=== PATIENT | female | born 1965 | race Caucasian/White ===

== ENCOUNTER 2021-10-20 13:02 | Inpatient (IN) | payer MEDICARE, MEDICAID, SELFPAY ==
[2021-10-20] VITALS (17 sets, daily range): BP systolic 98–138; BP diastolic 45–102; PULSE 87–112; RESP 18–28; TEMP 36.3–38.6; O2SAT 90–95; BMI 48.6
--- NOTE | 2021-10-20 13:32 | W.ED.GENAD ---
Discharge Plan Disposition Patient Disposition: [facility] INPATIENT Condition: Stable Discharge Details Clinical Impression: Open wound of left lower leg ED Provider: Dilip Reese [place] Meds and New Rx's Prescriptions: No Action atorvastatin [Lipitor] 40 mg Tablet 40 mg PO QHS acetaminophen 325 mg Tablet 650 mg PO Q8H PRN PRN torsemide 20 mg Tablet 20 mg PO DAILY prednisone 20 mg Tablet 20 mg PO DAILY alendronate 70 mg Tablet 70 mg PO QWEEK Rx Instructions: 1 tab po on tuesday metoprolol succinate 100 mg Tablet Extended Release 24 Hr 100 mg PO DAILY melatonin 3 mg Tablet 6 mg PO HS PRN aspirin [Aspir-81] 81 mg Tablet,Delayed Release (Dr/Ec) 81 mg PO DAILY amlodipine 10 mg Tablet 10 mg PO DAILY diphenhydramine HCl 25 mg Capsule 25 mg PO 4XD PRN calcium carbonate [Calcium Antacid] 200 mg calcium (500 mg) Tablet,Chewable 500 mg PO DAILY docusate sodium [DSS] 100 mg Capsule 100 mg PO BID omeprazole 20 mg Capsule,Delayed Release(Dr/Ec) 40 mg PO DAILY hydroxyzine HCl 25 mg Tablet 25 mg PO TID PRN loratadine 10 mg Tablet 10 mg PO DAILY oxycodone 5 mg Tablet 5 mg PO Q4H PRN insulin lispro [Humalog KwikPen Insulin] 100 unit/mL Insulin Pen See Rx Instructions .ROUTE .COMPLEX Rx Instructions: 61-100 =0 101-150 = 0 151-200 =2 201-250 =4 251- 300 =6 301- 350 = 8 351- 400 = 10 401-450 = 12 over 451 call provider insulin lispro [Humalog KwikPen Insulin] 100 unit/mL Insulin Pen 10 unit SUBCUT TID Rx Instructions: tid with meals ferrous gluconate 324 mg (36 mg iron) Tablet 324 mg PO DAILY pregabalin 100 mg Capsule 100 mg PO TID insulin glargine [Lantus Solostar U-100 Insulin] 100 unit/mL (3 mL) Insulin Pen 60 unit SUBCUT QAM venlafaxine 75 mg Tablet Extended Release 24hr 75 mg PO TID Trulicity 1.5 mg/0.5 mL Pen Injector 1.5 mg SUBCUT QWEEK Rx Instructions: qweek on tuesday magnesium oxide 400 mg magnesium Tablet 400 mg PO DAILY Medical Decision Making This is a 56-year-old female presenting via EMS from the [facility], past medical history that includes CHF, stills disease, morbid obesity, depression, anxiety, adrenal insufficiency, idiopathic aseptic necrosis of right femur, GERD, diabetes, DVT, hypertension, hyperlipidemia, weakness, currently nonambulatory status post an accident, who is a full code presents to the ER for left lower extremity wound worsening over the past 2 weeks. Apparently this occurred when hitting her leg on a hospital stretcher while doing PT. Has been evaluated at [facility] twice but still worsening. Patient tells me that she used to be anticoagulated but they discontinued this approximately 2 weeks ago when the wound started I will attempt to obtain records from [facility], obtain IV access and routine screening laboratory values and have requested a surgical consultation for Dr. Peoples. White blood cell of 23.96, patient with stills disease and reports that she is typically 16-18. We will add on blood cultures and a lactate. Potassium 3.0, given [address] Peoples to bedside to evaluate patient, please see her note. Plan is to bring to the OR for exploration and debridement, cultures and then will start antibiotic therapy. Plan is to admit after bringing to the OR. This documentation was generated using [employer] dictation system, please disregard any oddities of phrase or misspellings. Medical Records Medical records reviewed: Yes I reviewed the patient's medical records. Lab Data Lab results reviewed: Yes I reviewed the patient's lab results. Labs: 10/20/21 15:34 Nose MRSA Screen - Pending 10/20/21 14:22 Blood Blood Culture - Pending 10/20/21 14:22 Blood Blood Culture - Pending Laboratory Tests Range/Units 10/20/21 10/20/21 10/20/21 13:57 13:57 15:02 WBC (4.4-10.8) 10^3/uL 23.96 H RBC (3.93-5.22) 10^6/uL 3.13 L Hgb (11.2-15.7) g/dL 8.5 L Hct (36.0-46.0) % 28.2 L MCV (80-95) fL 90 MCH (27.0-33.0) pg 27.2 MCHC (32.0-36.0) % 30.1 L RDW (11.7-14.6) % 20.5 H Plt Count (130-400) 10^3/uL 495 H MPV (8.0-11.0) fL 10.1 Immature Gran % 4.3 Neutrophils % 85.1 Lymphocytes % 7.1 Monocytes % 3.1 Eosinophils % 0.0 Basophils % 0.4 Nucleated RBC % (0.0-0.3) % 0.7 H Absolute Neutrophils (1.2-6.7) 10^3/uL 20.39 H Absolute Lymphocytes (1.2-3.4) 10^3/uL 1.70 Absolute Monocytes (0.1-0.8) 10^3/uL 0.74 Absolute Eosinophils (0.0-0.7) 10^3/uL 0.00 Absolute Basophils (0.0-0.2) 10^3/uL 0.10 RBC Morphology See Below Polychromasia Present Hypochromasia 2+ Anisocytosis 2+ Sodium (136-145) mmol/L 144 Potassium (3.5-5.1) mmol/L 3.0 L Chloride (98-107) mmol/L 107 Carbon Dioxide (21.0-32.0) mmol/L 30.2 Anion Gap (3-11) mmol/L 6.8 BUN (7-18) mg/dL 23 H Creatinine (0.55-1.02) mg/dL 0.6 Estimated GFR/1.73 m2 (mL/min/1.73m2) >= 60.00 Glucose (74-106) mg/dL 142 H Calcium (8.5-10.1) mg/dL 8.5 Total Bilirubin (0.2-1.0) mg/dL 0.2 AST (15-37) U/L 10 L ALT (14-59) U/L 21 Alkaline Phosphatase (46-116) U/L 104 Total Protein (6.4-8.2) g/dL 6.4 Albumin (3.4-5.0) g/dL 2.0 L COVID-19 Source Nasal/Nares HPI General Mode of arrival: EMS. Date/Time Provider Initiated Documentation: 10/20/21 13:27. Limitations to Documentation: no limitations. Information obtained by: patient and EMS. History of Present Illness 56 year old F presents to the emergency department with the chief complaint of LLE wound, described as moderate, with intensity rated at 6. Quality is described as aching, and is localized to the left and lower extremity. Patient reports no radiation. Patient started experiencing this week(s) (2) and it has been other (worsening). No relieving factors improve symptom(s), No exacerbating factors reported . Patient notes no other symptoms.. Patient did receive the following treatments prior to arrival, none Related Data Home Medications Medication Instructions Recorded Confirmed acetaminophen 325 mg tablet 650 mg PO Q8H PRN PRN 10/20/21 10/20/21 alendronate 70 mg tablet 70 mg PO QWEEK 10/20/21 10/20/21 amlodipine 10 mg tablet 10 mg PO DAILY 10/20/21 10/20/21 aspirin 81 mg tablet,delayed 81 mg PO DAILY 10/20/21 10/20/21 release atorvastatin 40 mg tablet (Lipitor) 40 mg PO QHS 10/20/21 10/20/21 calcium carbonate 200 mg calcium 500 mg PO DAILY 10/20/21 10/20/21 (500 mg) chewable tablet (Calcium Antacid) diphenhydramine HCl 25 mg capsule 25 mg PO 4XD PRN 10/20/21 10/20/21 docusate sodium 100 mg capsule 100 mg PO BID 10/20/21 10/20/21 dulaglutide 1.5 mg/0.5 mL 1.5 mg subcut QWEEK 10/20/21 10/20/21 subcutaneous pen injector (Trulicity) ferrous gluconate 324 mg (36 mg 324 mg PO DAILY 10/20/21 10/20/21 iron) tablet hydroxyzine HCl 25 mg tablet 25 mg PO TID PRN 10/20/21 10/20/21 insulin glargine 100 unit/mL (3 60 unit subcut QAM 10/20/21 10/20/21 mL) subcutaneous pen (Lantus Solostar U-100 Insulin) insulin lispro 100 unit/mL 10 unit subcut TID 10/20/21 10/20/21 subcutaneous pen (Humalog KwikPen (U-100) Insulin) insulin lispro 100 unit/mL See Rx Instructions .Route .COMPLEX 10/20/21 10/20/21 subcutaneous pen (Humalog KwikPen (U-100) Insulin) loratadine 10 mg tablet 10 mg PO DAILY 10/20/21 10/20/21 magnesium oxide 400 mg PO DAILY 10/20/21 10/20/21 melatonin 3 mg tablet 6 mg PO HS PRN 10/20/21 10/20/21 metoprolol succinate 100 mg 100 mg PO DAILY 10/20/21 10/20/21 tablet,extended release 24 hr omeprazole 20 mg capsule,delayed 40 mg PO DAILY 10/20/21 10/20/21 release oxycodone 5 mg tablet 5 mg PO Q4H PRN 10/20/21 10/20/21 prednisone 20 mg tablet 20 mg PO DAILY 10/20/21 10/20/21 pregabalin 100 mg capsule 100 mg PO TID 10/20/21 10/20/21 torsemide 20 mg tablet 20 mg PO DAILY 10/20/21 10/20/21 venlafaxine 75 mg tablet,extended 75 mg PO TID 10/20/21 10/20/21 release 24 hr Allergies Allergy/AdvReac Type Severity Reaction Status Date / Time Latex, Natural Rubber Allergy Intermediate Hives Unverified 10/20/21 13:23 Penicillins Allergy Intermediate Skin Rash Unverified 10/20/21 13:23 adhesive tape AdvReac Intermediate Skin Rash Unverified 10/20/21 13:23 hydrogen peroxide AdvReac Intermediate Skin Rash Unverified 10/20/21 13:23 lisinopril AdvReac Intermediate Other (See Unverified 10/20/21 13:23 Comment) General Stated Complaint: Cellulitis FIDEL: 3 Review of Systems Constitutional Constitutional: Denies fatigue, Denies fever(s), Denies headache(s) and Reports weakness (Generalized) ENT Ears, Nose, Mouth, and Throat: Denies headache(s) Cardiovascular Cardiovascular: Denies chest pain and Denies dyspnea Respiratory Respiratory: Denies cough and Denies dyspnea Gastrointestinal Gastrointestinal: Denies abdominal pain, Denies nausea and Denies vomiting Genitourinary Genitourinary: Denies dysuria Musculoskeletal Musculoskeletal: Reports back pain (chronic), Denies numbness and Denies tingling Integumentary/Breasts Skin/Breast: Denies rash Neurologic Neurologic: Denies headache(s), Denies numbness, Denies tingling and Reports weakness (Generalized) Endocrine Endocrine: Denies fatigue Hematologic/Lymphatic Hematologic/Lymphatic: Denies easy bleeding and Denies easy bruising PFSH All Active Problems Open wound of left lower leg (Acute) Social History Smoking/Tobacco Use Status: Never Smoking risk assessment performed?: Yes Alcohol Intake: former Do you feel safe at home: Yes Do you feel safe in your relationship?: Yes Exam Const General: cooperative, comfortable, no acute distress and ill appearing chronically Orientation: alert and awake [facility] Head: normal to inspection, normocephalic and atraumatic Face and sinus: normal facial exam Mouth: moist mucous membranes Eyes Conjunctivae: conjunctivae normal Neck Neck: normal visual inspection, full ROM, trachea midline and supple Resp Effort & Inspection: normal respiratory effort and able to speak in complete sentences Auscultation: clear to auscultation bilaterally Cardio Rate: regular rate Rhythm: regular rhythm GI Inspection: obesity Palpation: soft and nontender Skin General skin exam: no erythema Full body images: 1. There is a open wound with a slight bloody ooze. Difficult to assess how deep this goes. There is diffuse tenderness. The edges are both with eschar tissue and what appears to be necrotic tissue. There is no significant erythema or lymphangitic streaking. Neuro General: patient alert, patient awake, moves all extremities and no focal motor deficits Sensory Exam: no sensory deficits noted Extrem General: capillary refill normal and pedal edema bilaterally non-pitting and 2+ Psych Appearance: grossly normal Mental Status: mental status grossly normal Course Vital Signs Vital signs: Vital Signs Temperature 36.3 C L 10/20/21 13:17 Pulse 110 H 10/20/21 13:17 Respiratory Rate 18 10/20/21 13:17 Blood Pressure 134/80 10/20/21 13:17 Pulse Oximetry 90 L 10/20/21 13:17 Temperature 36.3 C L 10/20/21 13:17 Pulse 110 H 10/20/21 13:17 Respiratory Rate 18 10/20/21 13:17 Blood Pressure 134/80 10/20/21 13:17 Pulse Oximetry 90 L 10/20/21 13:17 Oxygen Delivery Method Room Air 10/20/21 13:17 Oxygen Flow Rate 0 10/20/21 13:17
[2021-10-20 14:08] LABS: Abs Immature Grans 1.04 10^3/uL (0.0-0.06); Absolute Monocyte Count 0.74 10^3/uL (0.1-0.8); Basophils % 0.4; HCT 28.2 % (36.0-46.0); HGB 8.5 g/dL (11.2-15.7); Immature Grans % 4.3; Lymphocytes % 7.1; MCH 27.2 pg (27.0-33.0); MCHC 30.1 % (32.0-36.0); MCV 90 fL (80-95); MPV 10.1 fL (8.0-11.0); Monocytes % 3.1; Neutrophils % 85.1; Nucleated RBC 0.7 % (0.0-0.3); Platelet Count 495 10^3/uL (130-400); RBC 3.13 10^6/uL (3.93-5.22); RDW 20.5 % (11.7-14.6); RDW-SD 66.9 fL
[2021-10-20 14:11] LABS: Absolute Neutrophil Count 20.39 10^3/uL (1.2-6.7); WBC 23.96 10^3/uL (4.4-10.8)
[2021-10-20 14:19] LABS: ALT 21 U/L (14-59); AST 10 U/L (15-37); Alkaline Phosphatase 104 U/L (46-116); Anion Gap 6.8 mmol/L (3-11); BUN 23 mg/dL (7-18); Bilirubin, Total 0.2 mg/dL (0.2-1.0); CO2 30.2 mmol/L (21.0-32.0); CREATININE 0.6 mg/dL (0.55-1.02); Calcium 8.5 mg/dL (8.5-10.1); Chloride 107 mmol/L (98-107); Glucose 142 mg/dL (74-106); Sodium 144 mmol/L (136-145); Total Protein 6.4 g/dL (6.4-8.2)
[2021-10-20 14:20] LABS: Anisocytosis 2+; Diff Comment Agrees w/ Instrument
[2021-10-20 14:21] LABS: Hypochromasia 2+; Polychromasia Present
[2021-10-20] MEDS: Potassium Chloride 20 MEQ TABCR 40 MEQ PO (14:45)
[2021-10-20] MEDS: oxyCODONE 5 MG TAB PO ×2 (14:45→18:08)
[2021-10-20 15:11] LABS: Source Nasal/Nares
--- NOTE | 2021-10-20 15:36 | W.ANESPRE ---
General Info Date of Service Date Performed: 10/20/21 Height: 5 ft Weight: 113 kg Body Mass Index (BMI): 48.6 Surgical Procedure: Operation Date: 10/20/21 17:25 Proposed Procedure Side Surgeon p I&D of Hematoma Latonya Peoples MD Meds Allergies and Home Medications Allergies Allergy/AdvReac Type Severity Reaction Status Date / Time Latex, Natural Rubber Allergy Intermediate Hives Unverified 10/20/21 13:23 Penicillins Allergy Intermediate Skin Rash Unverified 10/20/21 13:23 adhesive tape AdvReac Intermediate Skin Rash Unverified 10/20/21 13:23 hydrogen peroxide AdvReac Intermediate Skin Rash Unverified 10/20/21 13:23 lisinopril AdvReac Intermediate Other (See Unverified 10/20/21 13:23 Comment) Home Medication Medication Instructions Recorded acetaminophen 325 mg tablet 650 mg PO Q8H PRN PRN 10/20/21 alendronate 70 mg tablet 70 mg PO QWEEK 10/20/21 amlodipine 10 mg tablet 10 mg PO DAILY 10/20/21 aspirin 81 mg tablet,delayed 81 mg PO DAILY 10/20/21 release atorvastatin 40 mg tablet (Lipitor) 40 mg PO QHS 10/20/21 calcium carbonate 200 mg calcium 500 mg PO DAILY 10/20/21 (500 mg) chewable tablet (Calcium Antacid) diphenhydramine HCl 25 mg capsule 25 mg PO 4XD PRN 10/20/21 docusate sodium 100 mg capsule 100 mg PO BID 10/20/21 dulaglutide 1.5 mg/0.5 mL 1.5 mg subcut QWEEK 10/20/21 subcutaneous pen injector (Trulicity) ferrous gluconate 324 mg (36 mg 324 mg PO DAILY 10/20/21 iron) tablet hydroxyzine HCl 25 mg tablet 25 mg PO TID PRN 10/20/21 insulin glargine 100 unit/mL (3 60 unit subcut QAM 10/20/21 mL) subcutaneous pen (Lantus Solostar U-100 Insulin) insulin lispro 100 unit/mL 10 unit subcut TID 10/20/21 subcutaneous pen (Humalog KwikPen (U-100) Insulin) insulin lispro 100 unit/mL See Rx Instructions .Route .COMPLEX 10/20/21 subcutaneous pen (Humalog KwikPen (U-100) Insulin) loratadine 10 mg tablet 10 mg PO DAILY 10/20/21 magnesium oxide 400 mg PO DAILY 10/20/21 melatonin 3 mg tablet 6 mg PO HS PRN 10/20/21 metoprolol succinate 100 mg 100 mg PO DAILY 10/20/21 tablet,extended release 24 hr omeprazole 20 mg capsule,delayed 40 mg PO DAILY 10/20/21 release oxycodone 5 mg tablet 5 mg PO Q4H PRN 10/20/21 prednisone 20 mg tablet 20 mg PO DAILY 10/20/21 pregabalin 100 mg capsule 100 mg PO TID 10/20/21 torsemide 20 mg tablet 20 mg PO DAILY 10/20/21 venlafaxine 75 mg tablet,extended 75 mg PO TID 10/20/21 release 24 hr Current Visit Medications: Current Medications Generic Name Dose Route Start Last Admin Trade Name Freq PRN Reason Stop Dose Admin IV Miscellaneous Supplies 1 each 10/20/21 14:00 Iv Access IV DIRECTED [facility] Active Problems Active Problems: Problem Status Onset Code Open wound of left lower leg S81.802A Medical History Medical History (Updated 10/20/21 @ 16:01 by Latonya Peoples MD) Pleasants disease Anxiety Avascular necrosis of bone of left hip Chronic pain Closed fracture of lumbar vertebra Closed fracture of medial malleolus Closed fracture of scapula Closed intertrochanteric fracture of femur COVID Depression Diabetes DVT (deep venous thrombosis) Fracture acetabulum-closed Fracture of multiple ribs Fracture of pubis Fracture, clavicle Fracture, fibula Fracture, patella Fracture, tibial plateau GERD (gastroesophageal reflux disease) History of leukocytosis due to chronic prednisone use Hyperlipidemia Hypertension Obesity [place] (obstructive sleep apnea) Pulmonary embolus Still's disease of adult Subarachnoid hemorrhage Subdural hematoma Surgical History Surgical History (Updated 10/20/21 @ 16:01 by Latonya Peoples MD) H/O skin graft H/O tooth extraction History of ankle surgery History of bronchoscopy History of orthopedic surgery right tibia, bilateral acetabulum, right arm Previous section x2 S/P appendectomy S/P pericardial window creation Status post open reduction and internal fixation (ORIF) of fracture left femur Tubal ligation status Tobacco Smoking/Tobacco Use Status: Never Alcohol Alcohol Intake: former Substance Use Substance use: Never Vital Signs and Lab Results Vital Signs Most Recent Vital Signs in EMR: Most Recent Vital Signs Temp Pulse Resp BP Pulse Ox 36.3 C L 105 H 21 116/67 90 L 10/20/21 13:17 10/20/21 15:15 10/20/21 15:15 10/20/21 15:15 10/20/21 13:17 Lab Results Result Diagrams: 10/20/21 13:57 10/20/21 13:57 Blood Type / Crossmatch: No Data to Display Complete Blood Count: White Blood Count 23.96 10^3/uL (4.4-10.8) H 10/20/21 13:57 Red Blood Count 3.13 10^6/uL (3.93-5.22) L 10/20/21 13:57 Hemoglobin 8.5 g/dL (11.2-15.7) L 10/20/21 13:57 Hematocrit 28.2 % (36.0-46.0) L 10/20/21 13:57 Platelet Count 495 10^3/uL (130-400) H 10/20/21 13:57 Venous Blood Lactate Pending 10/20/21 14:22 Complete Metabolic Panel: Sodium Level 144 mmol/L (136-145) 10/20/21 13:57 Potassium Level 3.0 mmol/L (3.5-5.1) L 10/20/21 13:57 Chloride Level 107 mmol/L (98-107) 10/20/21 13:57 Carbon Dioxide Level 30.2 mmol/L (21.0-32.0) 10/20/21 13:57 Blood Urea Nitrogen 23 mg/dL (7-18) H 10/20/21 13:57 Creatinine 0.6 mg/dL (0.55-1.02) 10/20/21 13:57 Estimated GFR/1.73 m2 >= 60.00 (mL/min/1.73m2) 10/20/21 13:57 Magnesium Level Pending 10/20/21 14:21 Calcium Level 8.5 mg/dL (8.5-10.1) 10/20/21 13:57 Albumin 2.0 g/dL (3.4-5.0) L 10/20/21 13:57 Glucose Level 142 mg/dL (74-106) H 10/20/21 13:57 Liver Function Panel: Alanine Aminotransferase (ALT/SGPT) 21 U/L (14-59) 10/20/21 13:57 Aspartate Amino Transf (AST/SGOT) 10 U/L (15-37) L 10/20/21 13:57 Coagulation Panel: INR International Normalized Ratio 1.0 (0.9-1.1) 10/20/21 13:57 Prothrombin Time 9.8 sec (9.3-11.0) 10/20/21 13:57 Activated Partial Thromboplast Time 22.2 sec (21.0-27.5) 10/20/21 13:57 Cardiac Panel: No Data to Display Arterial Blood Gas: No Data to Display Venous Blood Gas: No Data to Display Pancreas Panel: No Data to Display Thyroid Panel: No Data to Display Infectious Disease: Coronavirus (COVID-19)(PCR) Negative (Negative) 10/20/21 15:02 Coronavirus 2019 Source Nasal/Nares 10/20/21 15:02 Blood Cultures: No Data to Display Toxicology Panel: No Data to Display Imaging and Studies Imaging and Studies Study information below may be from another EMR and interpreted by another provider. Please see original notes in EMR for more complete details. Echocardiogram Summary: 09/21/21: [facility]: EF 70% trace MR and TR, AR WNL pulmonary artery HTN could not be assess due to inadequate tricuspid regurg. jet Anesthesia Assessment and Plan Anesthesia History Personal History: No History of Anesthesia Complications Family History: No Family History of Anesthesia Complications Exercise Tolerance Exercise Tolerance: Metabolic Equivalents<4 Cardiac & Pulmonary Exam Cardiac Exam: Normal S1/S2 Heart Sounds Pulmonary Exam: Clear Bilateral Breath Sounds Implantable Cardiac Device Does patient have a Pacemaker or an ICD?: No Airway Exam Known Difficult Airway: No Mallampati Class: 2 Mouth Opening: Normal (> 3cm) Thyromental Distance: Greater than 3 cm Neck Range of Motion: Limited ROM Neck Circumference: Thick Teeth Condition: Edentulous ASA Classification ASA Score: ASA 3 Emergency Case?: Yes NPO Status NPO Status: Full Stomach Anesthesia Plan Resuscitation Status: Full Code Anesthesia Technique: Primary Nerve Block Airway Planned: Natural Airway Monitors Used: Standard Monitors
[2021-10-20 15:40] LABS: PTT Activated 22.2 sec (21.0-27.5); Prothrombin Time 9.8 sec (9.3-11.0)
--- NOTE | 2021-10-20 15:43 | HPE_ITS ---
Assessment and Plan Assessment and plan (1) Open wound of left lower leg: Status: Acute Assessment and plan: Ms Schaffer is a 56 year old female with a large wound on her left lower extremity. A hematoma was previously evacuated. She now presents with necrotic skin and old blood. Recommend washout and debridement in the OR. Because of her high risk of complications with intubation will attempt to do this under a block Risks, benefits and complications of the procedure were explained. Questions were entertained and answered to her satisfaction and she wished to proceed. Proceed with procedure Admit patient overnight for antibiotics Wound vac placement either in hospital or once she is back at snf Will ask Hospitalist to assist with patients care if she stays longer the 1-2 days (2) Chronic pain: Assessment and plan: Will continue on Medications (3) COVID: Assessment and plan: 7 weeks ago. Still slightly hypoxic (4) Diabetes: Assessment and plan: Sliding scale insulin and home meds (5) GERD (gastroesophageal reflux disease): (6) History of leukocytosis: Assessment and plan: A bit higher then normal for her. ? infection. Will do cultures and give Zosyn (7) Hypertension: (8) Still's disease of adult: Assessment and plan: Continue on Prednisone History of Present Illness Consults Consult date: 10/20/21 Requesting physician: Dilip Reese Narrative: Mrs Schaffer is a pleasant 56 year old female who is a resident of a [facility] in [place], who was trasnported via ambulance from [place] to our ER for left lower extremity wound. Apparently the patient, who at the time was on Eliquis, hit her lower extremity on a bed rail and developed a hematoma. She was sent to ER at [facility] for expanding Hematoma and was admitted. During her hospitalization the hematoma was evacuated and the wound was partially closed. She has not been seen by the surgeon since then. She doesn't complain of fevers. She does complain of pain, which is a chronic issue. Her PMHx is significant for Still's disease, DM, HTN, Addisons disease, anxiety and depression, chronic pain, GERD, Hx of DVT and PE. She has been off the Eliquis since the injury happened on 10/11/21. Review of Systems Constitutional Constitutional: Reports difficulty sleeping, Denies fever(s) and Denies headache(s) Eyes Eyes: Denies change in vision ENT Ears, Nose, Mouth, and Throat: Denies headache(s) Cardiovascular Cardiovascular: Denies chest pain, Denies chest pain at rest, Denies irregular heart rhythm, Denies palpitations, Denies dyspnea, Reports dyspnea on exertion and Reports orthopnea Respiratory Respiratory: Denies cough, Denies dyspnea and Reports dyspnea on exertion Gastrointestinal Gastrointestinal: Reports system reviewed and no additional complaints, except as documented Genitourinary Genitourinary: Reports system reviewed and no additional complaints, except as documented Musculoskeletal Musculoskeletal: Reports system reviewed and no additional complaints, except as documented Integumentary/Breasts Skin/Breast: Reports system reviewed and no additional complaints, except as documented Neurologic Neurologic: Reports system reviewed and no additional complaints, except as documented and Denies headache(s) Endocrine Endocrine: Denies palpitations PFSH All Active Problems (Updated 10/20/21 @ 16:14 by Latonya Peoples MD) Open wound of left lower leg (Acute) Medical History (Updated 10/20/21 @ 16:14 by Latonya Peoples MD) [place] disease Anxiety Avascular necrosis of bone of left hip Chronic pain Closed fracture of lumbar vertebra Closed fracture of medial malleolus Closed fracture of scapula Closed intertrochanteric fracture of femur COVID begining of September 2021 Depression Diabetes DVT (deep venous thrombosis) Fracture acetabulum-closed Fracture of multiple ribs Fracture of pubis Fracture, clavicle Fracture, fibula Fracture, patella Fracture, tibial plateau GERD (gastroesophageal reflux disease) History of leukocytosis due to chronic prednisone use Hyperlipidemia Hypertension Obesity [place] (obstructive sleep apnea) Pulmonary embolus Still's disease of adult Subarachnoid hemorrhage Subdural hematoma Surgical History (Updated 10/20/21 @ 16:01 by Latonya Peoples MD) H/O skin graft H/O tooth extraction History of ankle surgery History of bronchoscopy History of orthopedic surgery right tibia, bilateral acetabulum, right arm Previous section x2 S/P appendectomy S/P pericardial window creation Status post open reduction and internal fixation (ORIF) of fracture left femur Tubal ligation status Family History (Updated 10/20/21 @ 16:03 by Latonya Peoples MD) Mother Heart disease Diabetes Father COPD (chronic obstructive pulmonary disease) Sister Diabetes Sister Diabetes Social History Smoking/Tobacco Use Status: Never Smoking risk assessment performed?: Yes Alcohol Intake: former Drug use: Never Do you feel safe at home: Yes Do you feel safe in your relationship?: Yes Meds Allergies and Home Medications Allergies Allergy/AdvReac Type Severity Reaction Status Date / Time Latex, Natural Rubber Allergy Intermediate Hives Unverified 10/20/21 13:23 Penicillins Allergy Intermediate Skin Rash Unverified 10/20/21 13:23 adhesive tape AdvReac Intermediate Skin Rash Unverified 10/20/21 13:23 hydrogen peroxide AdvReac Intermediate Skin Rash Unverified 10/20/21 13:23 lisinopril AdvReac Intermediate Other (See Unverified 10/20/21 13:23 Comment) Home Medications Medication Instructions Recorded Confirmed Type acetaminophen 325 mg tablet 650 mg PO Q8H PRN PRN 10/20/21 10/20/21 History alendronate 70 mg tablet 70 mg PO QWEEK 10/20/21 10/20/21 History amlodipine 10 mg tablet 10 mg PO DAILY 10/20/21 10/20/21 History aspirin 81 mg tablet,delayed 81 mg PO DAILY 10/20/21 10/20/21 History release atorvastatin 40 mg tablet (Lipitor) 40 mg PO QHS 10/20/21 10/20/21 History calcium carbonate 200 mg calcium 500 mg PO DAILY 10/20/21 10/20/21 History (500 mg) chewable tablet (Calcium Antacid) diphenhydramine HCl 25 mg capsule 25 mg PO 4XD PRN 10/20/21 10/20/21 History docusate sodium 100 mg capsule 100 mg PO BID 10/20/21 10/20/21 History dulaglutide 1.5 mg/0.5 mL 1.5 mg subcut QWEEK 10/20/21 10/20/21 History subcutaneous pen injector (Trulicity) ferrous gluconate 324 mg (36 mg 324 mg PO DAILY 10/20/21 10/20/21 History iron) tablet hydroxyzine HCl 25 mg tablet 25 mg PO TID PRN 10/20/21 10/20/21 History insulin glargine 100 unit/mL (3 60 unit subcut QAM 10/20/21 10/20/21 History mL) subcutaneous pen (Lantus Solostar U-100 Insulin) insulin lispro 100 unit/mL 10 unit subcut TID 10/20/21 10/20/21 History subcutaneous pen (Humalog KwikPen (U-100) Insulin) insulin lispro 100 unit/mL See Rx Instructions .Route .COMPLEX 10/20/21 10/20/21 History subcutaneous pen (Humalog KwikPen (U-100) Insulin) loratadine 10 mg tablet 10 mg PO DAILY 10/20/21 10/20/21 History magnesium oxide 400 mg PO DAILY 10/20/21 10/20/21 History melatonin 3 mg tablet 6 mg PO HS PRN 10/20/21 10/20/21 History metoprolol succinate 100 mg 100 mg PO DAILY 10/20/21 10/20/21 History tablet,extended release 24 hr omeprazole 20 mg capsule,delayed 40 mg PO DAILY 10/20/21 10/20/21 History release oxycodone 5 mg tablet 5 mg PO Q4H PRN 10/20/21 10/20/21 History prednisone 20 mg tablet 20 mg PO DAILY 10/20/21 10/20/21 History pregabalin 100 mg capsule 100 mg PO TID 10/20/21 10/20/21 History torsemide 20 mg tablet 20 mg PO DAILY 10/20/21 10/20/21 History venlafaxine 75 mg tablet,extended 75 mg PO TID 10/20/21 10/20/21 History release 24 hr Exam Const General: cooperative, comfortable and no acute distress [facility] Head: normocephalic and atraumatic Eyes Pupils: PERRL Resp Effort & Inspection: normal respiratory effort Auscultation: clear to auscultation bilaterally Cardio Rate: regular rate Rhythm: regular rhythm Skin Other: Left lateral lower extremity- There is a large area of old blood. I can't fully appreciate the depth. There is necrotic skin overlying the subcutaneous tissue. It is painful to try and manipulate the leg Results Labs Result diagrams: 10/20/21 13:57 10/20/21 13:57 Labs: Laboratory Results - last 24 hr 10/20/21 10/20/21 10/20/21 13:57 13:57 15:02 WBC 23.96 H RBC 3.13 L Hgb 8.5 L Hct 28.2 L MCV 90 MCH 27.2 MCHC 30.1 L RDW 20.5 H Plt Count 495 H MPV 10.1 Immature Gran % 4.3 Neutrophils % 85.1 Lymphocytes % 7.1 Monocytes % 3.1 Eosinophils % 0.0 Basophils % 0.4 Nucleated RBC % 0.7 H Absolute Neutrophils 20.39 H Absolute Lymphocytes 1.70 Absolute Monocytes 0.74 Absolute Eosinophils 0.00 Absolute Basophils 0.10 RBC Morphology See Below Polychromasia Present Hypochromasia 2+ Anisocytosis 2+ Sodium 144 Potassium 3.0 L Chloride 107 Carbon Dioxide 30.2 Anion Gap 6.8 BUN 23 H Creatinine 0.6 Estimated GFR/1.73 m2 >= 60.00 Glucose 142 H Calcium 8.5 Total Bilirubin 0.2 AST 10 L ALT 21 Alkaline Phosphatase 104 Total Protein 6.4 Albumin 2.0 L COVID-19 Source Nasal/Nares Last Vital Signs Temp 97.3 F L 10/20/21 13:17 Pulse 105 H 10/20/21 15:15 Resp 21 10/20/21 15:15 BP 116/67 10/20/21 15:15 Pulse Ox 90 L 10/20/21 13:17
[2021-10-20 15:53] LABS: COVID-19 PCR Negative (Negative)
--- NOTE | 2021-10-20 16:36 | W.ANESNERVE ---
Nerve Block Single Injection Procedure Date and Time Date Performed: 10/20/21 Procedure Start: 16:27 Location Where Procedure Performed Procedure Location: PACU Reason Performed: Other (Primary Anesthetic) Requesting Provider: Latonya Peoples Timeout Performed Timeout Performed: Yes Monitoring Used ECG and SpO2 Sterility Sterility: Hand Hygiene, Surgical Cap, Surgical Mask, Sterile Gloves and Chlorhexidine Sedation Given During Procedure Sedation Given (Indicate Dose Given): No Sedation given Patient Mental Status Patient Mental Status: Awake Nerve Block 1st Nerve Block: Laterality: Left Block Type: Popliteal Sciatic Needle / Catheter Used: 100mm SonoPlex II Local Anesthetic Bolus (Indicate Dose Given): Lidocaine used for local infiltration of skin, Injected in 3-5ml increments after negative blood aspiration and Bupivacaine 0.5% Dose:: 30mL Additives (Indicate Dose Given): None Ultrasound: Sterile probe cover and gel used Ultrasound Image Saved?: Yes Nerve Stimulator: Supplement to Ultrasound use Paresthesia: None Procedure Tolerated: No Complications Procedure Outcome: Successful Performed By: Janna Nobles
[2021-10-20] MEDS: Cellulose,Oxidized 4X8 1 PACKET MC (17:00)
[2021-10-20] MEDS: Bupivacaine 0.25% Pres-Free 30 ML VIAL (17:00)
--- NOTE | 2021-10-20 17:32 | W.PM.OP ---
Date of service: 10/20/21 Time of Service: 17:32 Operative Note Operative Note DATE OF PROCEDURE: 10/20/21 PRE-OP DIAGNOSIS: Left lower extremity wound POST-OP DIAGNOSIS: same PROCEDURE: Debridement of left lower extremity wound SURGEON: Latonya Peoples [employer] MODEL: Serena Eaton Refer to Anesthesia Record ESTIMATED BLOOD LOSS: 20 PATHOLOGY: none sent COMPLICATIONS: None Patient was transported to: other (Med/Surg) Patient's condition: stable Indications: Mrs Schaffer is 56 year old female with a LLE hematoma which was evacuated on 10/11/21. The skin was left and tacked down. Unfortunately the Skin has necrosed. There was concern by the center medical and lab director at the patients [facility] of infection. He was not happy about the care the patient had recieved and sent the patient to our ER. Findings: Necrotic skin flap. small amount of hematoma Wound after debridement was 15 x 8 x 0.2 cm Procedure Description: After informed consent was obtained in the ER, the patient was taken to PACU and placed in a right decubitous position. Using US Anesthesia performed a block to assist with pain control. The patient was then transported to the OR and left on the gurney in a right decubitous position. A pillow was placed between her legs for comfort. A time out was done. Her name, , Allergies to medications, DVT prophilaxis, ABX prophilaxis, Procedure to be done and site were reviewed. At this point the dressing was gently removed from the wound. The skin was gently cleaned with Iodine. The area was draped in a standard fashion. Permission was gotten from patient to take a picture of the wound for her chart. Patient gave verbal consent. The necrotic skin was then sharply removed with a 10 blade. There was undermining of the skin from the 12 o'clock position to the 3 0'clock position. 15 cc of 0.25% Bupivocain was injected into the skin and the flap was shharply removed. There was another smaller flap from the 8 o'clock to the 6 o'clock position. Bupivocaine was injected and sharply debrided. There was some old blood still attached to the subcutaneous tissue. This was scraped off with a soft brush with iodine. The wound and skin were then irrigated with NS. Bleeding was stopped by applying some surgicell. 4x4 and ABD's were applied and secured with Kerlix and RAMESH. The patient was then transfered onto her bed and taken upstairs to MED/SURG. Needle, sponge counts were correct. There were no immediate complications.
[2021-10-20] MEDS: PIPERACILLIN/TAZO 3.375 GM in Normal Saline 50 ML IVPB ×2 (17:56→23:31)
[2021-10-20] MEDS: Normal Saline Flush 10 ML SYR (17:57)
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
[2021-10-20] MEDS: Venlafaxine 75 MG CAPCR PO (20:11)
[2021-10-20] MEDS: Docusate Sodium 100 MG CAP PO (20:11)
[2021-10-20] MEDS: Atorvastatin 40 MG TAB PO (20:11)
[2021-10-20] MEDS: Acetaminophen 325 MG TAB 650 MG PO (20:11)
[2021-10-20] MEDS: Pregabalin 100 MG CAP PO (20:11)
[2021-10-20] MEDS: Nystatin POWDER 60 GM JAR TP (20:11)
[2021-10-20] MEDS: VANCOMYCIN 2,000 MG in Normal Saline 500 ML 250 MG IVPB (20:12)
[2021-10-20] MEDS: Enoxaparin 40 MG/0.4 ML SYR SC (20:38)
[2021-10-20 21:19] LABS: Lactate 1.5 mmol/L (0.6-1.4)
[2021-10-20 21:30] LABS: Magnesium 1.8 mg/dL (1.8-2.4)
[2021-10-20] MEDS: Insulin Aspart 300 UNITS/3 ML PEN SC (22:29)
[2021-10-21] VITALS (7 sets, daily range): BP systolic 105–136; BP diastolic 66–78; PULSE 79–87; RESP 20; TEMP 36.7–37.6; O2SAT 92–96
--- NOTE | 2021-10-21 | DI.RAD_ITS ---
Exam(s) XR LINE PLACEMENT PICC/CVA EXAM: XR LINE PLACEMENT PICC/CVA CLINICAL HISTORY: PICC lacement TECHNIQUE: COMPARISON: No exams were available for comparison FINDINGS: Single portable upright view was obtained. Heart is enlarged. There are diffuse pulmonary interstit ial radiodensities which are nonspecific. This examination was obtained for PICC placement, however PICC line is not visualized. IMPRESSION: RADIATION DOSE DELIVERED: Total DLP
[2021-10-21] MEDS: Melatonin 3 MG TAB 6 MG PO ×2 (01:08→21:56)
[2021-10-21] MEDS: oxyCODONE 5 MG TAB PO ×5 (01:08→21:56)
[2021-10-21] MEDS: PIPERACILLIN/TAZO 3.375 GM in Normal Saline 50 ML IVPB ×4 (05:41→23:41)
--- NOTE | 2021-10-21 06:21 | W.PM.PROGNOT ---
Date of Service Date of service: 10/21/21 Time of Service: 06:21 Assessment and Plan Assessment and plan (1) Open wound of left lower leg: Status: Acute Assessment and plan: Ms grover is doing well POD #1 Has been febrile overnight Plan: change dressing later today Continue brought spectrum Abx until I have Cx results back Appreciate Dr. Staley seeing patient and assisting with medical management of her chronic issues (2) Chronic pain: Assessment and plan: Will continue on Medications (3) COVID: Assessment and plan: 7 weeks ago. Still slightly hypoxic (4) Diabetes: Assessment and plan: Sliding scale insulin and home meds (5) GERD (gastroesophageal reflux disease): (6) History of leukocytosis: Assessment and plan: A bit higher then normal for her. ? infection. Will do cultures and give Zosyn (7) Hypertension: (8) Still's disease of adult: Assessment and plan: Continue on Prednisone Subjective Subjective Interval history since last seen: Leslie did well overnight. She is sleeping comfortably as I walk into the room. Low grade fevers overnight Exam Resp Effort & Inspection: normal respiratory effort Auscultation: clear to auscultation bilaterally Cardio Rate: regular rate Rhythm: regular rhythm Skin Other: LLE- dressing intact. No bloody discharge noted on RAMESH wrap Objective Last Vital Signs Temp 99.7 F H 10/21/21 05:37 Pulse 87 10/21/21 05:37 Resp 20 10/21/21 05:37 BP 115/68 10/21/21 05:37 Pulse Ox 96 10/21/21 05:37 Laboratory Results - last 24 hr 10/20/21 10/20/21 10/20/21 13:57 13:57 13:57 WBC 23.96 H RBC 3.13 L Hgb 8.5 L Hct 28.2 L MCV 90 MCH 27.2 MCHC 30.1 L RDW 20.5 H Plt Count 495 H MPV 10.1 Immature Gran % 4.3 Neutrophils % 85.1 Lymphocytes % 7.1 Monocytes % 3.1 Eosinophils % 0.0 Basophils % 0.4 Nucleated RBC % 0.7 H Absolute Neutrophils 20.39 H Absolute Lymphocytes 1.70 Absolute Monocytes 0.74 Absolute Eosinophils 0.00 Absolute Basophils 0.10 RBC Morphology See Below Polychromasia Present Hypochromasia 2+ Anisocytosis 2+ PT 9.8 INR 1.0 APTT 22.2 VBG Lactate Sodium 144 Potassium 3.0 L Chloride 107 Carbon Dioxide 30.2 Anion Gap 6.8 BUN 23 H Creatinine 0.6 Estimated GFR/1.73 m2 >= 60.00 Glucose 142 H Calcium 8.5 Magnesium Total Bilirubin 0.2 AST 10 L ALT 21 Alkaline Phosphatase 104 Total Protein 6.4 Albumin 2.0 L COVID-19 Source SARS-CoV-2 (PCR) 10/20/21 10/20/21 10/20/21 15:02 21:13 21:13 WBC RBC Hgb Hct MCV MCH MCHC RDW Plt Count MPV Immature Gran % Neutrophils % Lymphocytes % Monocytes % Eosinophils % Basophils % Nucleated RBC % Absolute Neutrophils Absolute Lymphocytes Absolute Monocytes Absolute Eosinophils Absolute Basophils RBC Morphology Polychromasia Hypochromasia Anisocytosis PT INR APTT VBG Lactate 1.5 H Sodium Potassium Chloride Carbon Dioxide Anion Gap BUN Creatinine Estimated GFR/1.73 m2 Glucose Calcium Magnesium 1.8 Total Bilirubin AST ALT Alkaline Phosphatase Total Protein Albumin COVID-19 Source Nasal/Nares SARS-CoV-2 (PCR) Negative
[2021-10-21 07:18] LABS: HCT 26.2 % (36.0-46.0); HGB 7.7 g/dL (11.2-15.7); MCH 26.7 pg (27.0-33.0); MCHC 29.4 % (32.0-36.0); MCV 91 fL (80-95); MPV 10.1 fL (8.0-11.0); Platelet Count 479 10^3/uL (130-400); RBC 2.88 10^6/uL (3.93-5.22); WBC 24.38 10^3/uL (4.4-10.8)
[2021-10-21 07:35] LABS: Absolute Neutrophil Count 23.16 10^3/uL (1.2-6.7); Bands % 1
[2021-10-21 07:36] LABS: Absolute Lymphocyte Count 0.73 10^3/uL (1.2-3.4); Absolute Monocyte Count 0.24 10^3/uL (0.1-0.8); Diff Comment Manual Differential; Hypochromasia 1+; Metamyelocytes % 1
[2021-10-21 07:54] LABS: Anion Gap 7.9 mmol/L (3-11); BUN 18 mg/dL (7-18); C-Reactive Protein 22.08 mg/dL (0.0-0.3); CO2 28.1 mmol/L (21.0-32.0); CREATININE 0.6 mg/dL (0.55-1.02); Calcium 8.8 mg/dL (8.5-10.1); Chloride 108 mmol/L (98-107); Glucose 242 mg/dL (74-106); Potassium 4.3 mmol/L (3.5-5.1); Sodium 144 mmol/L (136-145)
[2021-10-21 08:14] LABS: Hemoglobin A1C 7.8 % (<5.7)
[2021-10-21] MEDS: Torsemide 20 MG TAB PO (08:21)
[2021-10-21] MEDS: Metoprolol CR 100 MG TABCR PO (08:21)
[2021-10-21] MEDS: Omeprazole 20 MG CAPCR 40 MG PO (08:21)
[2021-10-21] MEDS: Calcium Carbonate *TUMS* 500 MG CHEW PO (08:21)
[2021-10-21] MEDS: Pregabalin 100 MG CAP PO ×3 (08:22→20:50)
[2021-10-21] MEDS: amLODIPine 10 MG TAB PO (08:22)
[2021-10-21] MEDS: Loratidine 10 MG TAB PO (08:22)
[2021-10-21] MEDS: Venlafaxine 75 MG CAPCR PO ×3 (08:22→20:50)
[2021-10-21] MEDS: Docusate Sodium 100 MG CAP PO ×3 (08:22→20:50)
[2021-10-21] MEDS: Ferrous Gluconate 324 MG TAB PO (08:23)
[2021-10-21] MEDS: predniSONE 20 MG TAB 60 MG PO (08:23)
[2021-10-21 08:37] LABS: Lab Add On Test DONE
[2021-10-21] MEDS: Insulin Glargine 300 UNITS/3 ML PEN 60 UNITS SC (08:37)
[2021-10-21] MEDS: Insulin Aspart 300 UNITS/3 ML PEN SC ×4 (08:38→21:52)
[2021-10-21] MEDS: Insulin Aspart 300 UNITS/3 ML PEN 10 UNITS SC ×3 (08:38→17:09)
[2021-10-21] MEDS: Normal Saline Flush 10 ML SYR ×2 (08:39→10:58)
[2021-10-21] MEDS: Nystatin POWDER 60 GM JAR TP (08:39)
--- NOTE | 2021-10-21 08:54 | W.ANESPOSTOP ---
Postoperative Evaluation Date, Time and Location Date Performed: 10/21/21 Time Performed: 08:54 Patient Location: Med/Surg (215) Vital Signs Most Recent Imported Vital Signs: Most Recent Vital Signs Temp Pulse Resp BP Pulse Ox 37.1 C 83 20 105/66 95 10/21/21 07:14 10/21/21 07:14 10/21/21 07:14 10/21/21 07:14 10/21/21 07:14 Pain Score Most Recent Pain Score: Most Recent Pain Score Pain Level 5 10/21/21 08:40 Assessment Mental Status: Awake (Alert & Oriented to Patient Baseline) Airway and Respiratory Function: Patent airway with normal (patient baseline) respiratory exam Cardiovascular Function: Hemodynamically Stable Hydration Status: Adequately Hydrated Nausea & Vomiting: No Nausea or Vomiting Pain: Pain is Moderate or Severe Postoperative Pain Management: Pain being addressed with medication Peripheral Nerve Block: Regional nerve block not resolved at time of post operative discharge (Patient reports block almost completely resolved, just slightly heavier than opposing leg. )
[2021-10-21 09:17] LABS: Procalcitonin 0.5 ng/mL
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
[2021-10-21] MEDS: VANCOMYCIN/WATER (PEG) 1.5 GM/300 ML BAG IVPB ×2 (10:46→21:58)
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
[2021-10-21 12:09] LABS: Lab Add On Test DONE
[2021-10-21 12:21] LABS: Iron 12 ug/dL (50-170)
[2021-10-21 12:57] LABS: Ferritin > 2000 ng/mL (8-252)
[2021-10-21] MEDS: IRON SUCROSE COMPLEX 400 MG in Normal Saline 250 ML 100 MG IVPB (13:47)
[2021-10-21 14:33] LABS: HCT 25.8 % (36.0-46.0); HGB 7.7 g/dL (11.2-15.7)
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
[2021-10-21] MEDS: Enoxaparin 40 MG/0.4 ML SYR SC (17:09)
[2021-10-21] MEDS: Atorvastatin 40 MG TAB PO (20:50)
[2021-10-21] MEDS: Normal Saline Flush 10 ML SYR IVP (20:53)
[2021-10-21] MEDS: Insulin Glargine 300 UNITS/3 ML PEN 20 UNITS SC (21:53)
[2021-10-21] MEDS: Acetaminophen 325 MG TAB 650 MG PO (23:44)
[2021-10-22] MEDS: PIPERACILLIN/TAZO 3.375 GM in Normal Saline 50 ML IVPB ×3 (06:09→18:17)
[2021-10-22] MEDS: oxyCODONE 5 MG TAB PO ×4 (06:22→23:10)
[2021-10-22 06:54] LABS: Abs Immature Grans 0.92 10^3/uL (0.0-0.06); Absolute Lymphocyte Count 1.55 10^3/uL (1.2-3.4); Absolute Monocyte Count 0.73 10^3/uL (0.1-0.8); Basophils % 0.6; HCT 26.9 % (36.0-46.0); Immature Grans % 5.3; Lymphocytes % 8.9; MCH 26.6 pg (27.0-33.0); MCHC 29.7 % (32.0-36.0); MCV 89 fL (80-95); MPV 10.2 fL (8.0-11.0); Monocytes % 4.2; Nucleated RBC 0.6 % (0.0-0.3); RBC 3.01 10^6/uL (3.93-5.22); RDW 19.5 % (11.7-14.6); RDW-SD 63.3 fL
[2021-10-22 07:01] LABS: Anion Gap 10.7 mmol/L (3-11); BUN 20 mg/dL (7-18); CO2 27.3 mmol/L (21.0-32.0); CREATININE 0.7 mg/dL (0.55-1.02); Calcium 8.9 mg/dL (8.5-10.1); Chloride 103 mmol/L (98-107); Glucose 252 mg/dL (74-106); Potassium 3.5 mmol/L (3.5-5.1); Sodium 141 mmol/L (136-145)
[2021-10-22 07:11] LABS: Absolute Neutrophil Count 14.09 10^3/uL (1.2-6.7)
[2021-10-22 07:19] VITALS: BP 132/72; PULSE 69; RESP 18; TEMP 36.5; O2SAT 95
[2021-10-22 07:30] VITALS: O2SAT 96
[2021-10-22 07:49] LABS: Platelet Count 568 10^3/uL (130-400)
[2021-10-22 07:50] LABS: Diff Comment Diff Reviewed; Hypochromasia 2+; Polychromasia Present
[2021-10-22] MEDS: Psyllium PKT 1 EACH PO (08:12)
[2021-10-22] MEDS: Insulin Glargine 300 UNITS/3 ML PEN 60 UNITS SC (08:13)
[2021-10-22] MEDS: Insulin Aspart 300 UNITS/3 ML PEN 10 UNITS SC (08:13)
[2021-10-22] MEDS: Potassium Chloride 10 MEQ CAPCR 20 MEQ PO (08:14)
[2021-10-22] MEDS: Metoprolol CR 100 MG TABCR PO (08:14)
[2021-10-22] MEDS: Nystatin POWDER 60 GM JAR TP ×2 (08:14→19:48)
[2021-10-22] MEDS: Omeprazole 20 MG CAPCR 40 MG PO (08:14)
[2021-10-22] MEDS: Torsemide 20 MG TAB PO (08:15)
[2021-10-22] MEDS: amLODIPine 10 MG TAB PO (08:15)
[2021-10-22] MEDS: Calcium Carbonate *TUMS* 500 MG CHEW PO (08:15)
[2021-10-22] MEDS: predniSONE 20 MG TAB 60 MG PO (08:15)
[2021-10-22] MEDS: Docusate Sodium 100 MG CAP PO ×3 (08:16→19:48)
[2021-10-22] MEDS: Ferrous Gluconate 324 MG TAB PO (08:16)
[2021-10-22] MEDS: Pregabalin 100 MG CAP PO ×3 (08:16→19:48)
[2021-10-22] MEDS: Venlafaxine 75 MG CAPCR PO ×3 (08:16→19:48)
[2021-10-22] MEDS: Loratidine 10 MG TAB PO (08:16)
[2021-10-22] MEDS: Insulin Aspart 300 UNITS/3 ML PEN SC ×3 (08:17→16:57)
[2021-10-22] MEDS: Normal Saline Flush 10 ML SYR IVP ×4 (08:18→19:48)
[2021-10-22] MEDS: IRON SUCROSE COMPLEX 400 MG in Normal Saline 250 ML 100 MG IVPB (08:31)
[2021-10-22 09:56] LABS: Vancomycin, Trough 31.1 ug/mL (10.0-20.0)
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
[2021-10-22] MEDS: Insulin NPH-Human 300 UNITS/3 ML PEN 30 UNIT SC (11:01)
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
--- NOTE | 2021-10-22 11:45 | PHACLINREV_ITS ---
Pharmacy Admission Review - Admission Clinical Review (Last Reviewed 10/20/21 @ 19:59 by Dilip Staley MD) Anemia (Acute) Chronic anticoagulation (Acute) Open wound of left lower leg (Acute) Latex, Natural Rubber Allergy (Intermediate, Unverified 10/20/21 13:23) Hives Penicillins Allergy (Intermediate, Unverified 10/20/21 13:23) Skin Rash adhesive tape Adverse Reaction (Intermediate, Unverified 10/20/21 13:23) Skin Rash hydrogen peroxide Adverse Reaction (Intermediate, Unverified 10/20/21 13:23) Skin Rash lisinopril Adverse Reaction (Intermediate, Unverified 10/20/21 13:23) Other (See Comment) Resuscitation Status Full Code Height 5 ft Weight 113 kg - Renal Dosing Renal Dosing: BUN 20 mg/dL (7-18) H 10/22/21 06:30 Creatinine 0.7 mg/dL (0.55-1.02) 10/22/21 06:30 Medications needing adjustments: N/A (crcl = 101) - Anticoagulation Anticoagulation: Hgb 8.0 g/dL (11.2-15.7) L 10/22/21 06:30 Hct 26.9 % (36.0-46.0) L 10/22/21 06:30 Plt Count 568 10^3/uL (130-400) H 10/22/21 06:30 INR 1.0 (0.9-1.1) 10/20/21 13:57 Creatinine 0.7 mg/dL (0.55-1.02) 10/22/21 06:30 DVT Prophylaxis: Reviewed Medications: Enoxaparin (could consider obesity dosing for BMI = 48 (40 mg BID), however consider risk/benefit re:hematoma) Therapeutic Anticoagulation: N/A (pt reportedly had been on a DOAC (PE/DVT a few years ago), this has been held d/t hematoma) - Opiate Usage Evaluate Pain Scale/Pains Meds: Reviewed (morphine CR 15 mg Q12h added today, has been using oxycodone 5 mg q6 prn) Scheduled Bowel Reg ordered if on Opiates?: Yes (+relistor 12 mg x 1 today) - Relevant Labs Sodium 141 mmol/L (136-145) 10/22/21 06:30 Potassium 3.5 mmol/L (3.5-5.1) 10/22/21 06:30 Chloride 103 mmol/L (98-107) 10/22/21 06:30 Magnesium 1.8 mg/dL (1.8-2.4) 10/20/21 21:13 C-Reactive Protein 22.08 mg/dL (0.0-0.3) H 10/21/21 07:00 Electrolytes, C-Reactive P, ESR: Reviewed (other: hgb = 7.8, iron = 12, rec'd venofer 400 mg yesterday & again today) - DM Control DM Control: Glucose 252 mg/dL (74-106) H 10/22/21 06:30 Hemoglobin A1c 7.8 % (<5.7) H 10/21/21 07:00 Finger Stick Blood Glucose 216 Finger Stick Blood Glucose 216 Finger Stick Blood Glucose 313 Finger Stick Blood Glucose 331 Finger Stick Blood Glucose 313 Finger Stick Blood Glucose 313 Finger Stick Blood Glucose 313 Insulin Dosing: Reviewed (insulin adjustments - added 30 units glargine in PM (in addition to 60 u in AM), added 15 u aspart w/meals (in addition to sliding scale), 1x dose 30 u NPH today) - Heart Failure/[place] EF%, RAMESH's, B-Blockers, Diuretics: Reviewed (metoprolol succ 100 mg daily, amlodipine 10 mg daily) - BP Control BP Control: Blood Pressure 132/72 If elevated: N/A - Qtc Review If Elevated: N/A (no EKG) - IV to PO Switch IV Medications: Reviewed (requires IV antibiotics) - Home Meds Home Med List reviewed: Reviewed - Current meds Current Medication Order Review: Reviewed (rec'd venofer 400 mg x 1 yesterday & again today) - Comments Comments/Follow Ups: starting on daptomycin - monitor CPK levels weekly (baseline level suggested), consider holding atorvastatin if elevated or if pt experiences muscle pain/aches Antibiotic Activity - Pharmacy Antibiotic Review Pharmacy Antibiotic Activity: 48 hour review - Antibiotic Information Antibiotic Review Info: vancomycin started 10/20, received 2 grams 10/20@ 2200. used kinetics program to calculate dose 1500 mg q12h starting 10/21, anticipated trough = 15.7. Actual trough = 31.1 today @0900, [address] Staley suggested switching to dapto, no contraindications that I can see - recommended dosing for skin infection: 4-6 mg/kg/day (use adjBW for BMI >30 per uptodate). AdjBW = 73 kg, recommend 350 mg daily. (per guidelines: Total duration of therap y is usually 5 to 14 days (including oral step-down therapy); for necrotizing infection, continue until further debridement is not necessary, patient has improved clinically, and patient is afebrile for =48 hours (IDSA [De La Torre 2014]; De La Torre 2020).
[2021-10-22] MEDS: Methylnaltrexone 12 MG/0.6 ML VIAL SC (11:46)
[2021-10-22] MEDS: Polyethylene Glycol 3350 17 GM PACKET PO (11:47)
[2021-10-22] MEDS: Normal Saline 500 ML 30 ML IVPB ×2 (11:47→14:03)
[2021-10-22] MEDS: Insulin Aspart 300 UNITS/3 ML PEN 15 UNITS SC ×2 (11:48→16:57)
[2021-10-22] MEDS: DULoxetine 20 MG CAP PO (12:28)
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
[2021-10-22] MEDS: HYDROmorphone 2 MG/ML SYR 1 MG IVP (13:56)
[2021-10-22 15:39] VITALS: BP 122/61; PULSE 79; RESP 18; TEMP 36.2; O2SAT 91
[2021-10-22 15:55] VITALS: BP 122/61; PULSE 79; RESP 18; TEMP 36.2; O2SAT 91
--- NOTE | 2021-10-22 16:35 | CMPROGNOTE_ITS ---
- If Service Date Differs Date of service: 10/22/21 Time of Service: 16:[address] Ramirez reports Leslie is advocating for retaining a PICC; this would require flushes every five days; need to determine if [facility] can manage this. MD also advised Leslie has a large wound that is going to require PICOS disposables which will need to be ordered, as well as dressings 10x35. Dr. Ramirez reports worst case scenario could include a wet to dry dressing change option, but this is not advised. Hetal will discharge on oral Dapto for MRSA treatment and will require a skin graft, eventually as well. CM faxed updated clinicals to [facility] and will review discharge needs with facility tomorrow.
[2021-10-22] MEDS: Enoxaparin 40 MG/0.4 ML SYR SC (18:16)
[2021-10-22 18:30] LABS: Lab Add On Test DONE
[2021-10-22 18:43] LABS: Creatine Kinase 14 U/L (26-192)
[2021-10-22] MEDS: Atorvastatin 40 MG TAB PO (19:48)
[2021-10-22] MEDS: Melatonin 3 MG TAB 6 MG PO (19:54)
[2021-10-22] MEDS: Insulin Glargine 300 UNITS/3 ML PEN 30 UNITS SC (22:03)
[2021-10-22 23:06] VITALS: BP 129/82; PULSE 79; RESP 18; TEMP 36.8; O2SAT 95
--- NOTE | 2021-10-23 | DI.RAD_ITS ---
Exam(s) XR HIP RT COMPLETE AP PELVIS EXAM: XR HIP RT COMPLETE AP PELVIS INDICATION: right hip pain; osteonecrosis. COMPARISON: No exams were available for comparison TECHNIQUE: 2D digital imaging was performed. Three views. FINDINGS: There is extensive hardware with screw and plate fixation in the region of the right acetabulum. Thi s obscures visualization of the right femoral head head. And a screw is noted in the left ilium into the left superior pubic ramus. A compression screw and intramedullary right are flakita are noted in th e left femur for old fracture fixation. IMPRESSION: Extensive left acetabular hardware obscures visualization of the right femoral head. DATA REPOSITORY: RADIATION DOSE DELIVERED:
[2021-10-23] MEDS: PIPERACILLIN/TAZO 3.375 GM in Normal Saline 50 ML IVPB ×4 (00:27→17:12)
[2021-10-23] MEDS: Normal Saline Flush 10 ML SYR IVP ×11 (00:27→20:27)
[2021-10-23] MEDS: oxyCODONE 5 MG TAB PO ×5 (04:32→23:10)
[2021-10-23 07:06] LABS: HCT 26.2 % (36.0-46.0); HGB 8.2 g/dL (11.2-15.7); MCH 27.5 pg (27.0-33.0); MCHC 31.3 % (32.0-36.0); MCV 88 fL (80-95); MPV 10.1 fL (8.0-11.0); Platelet Count 569 10^3/uL (130-400); RBC 2.98 10^6/uL (3.93-5.22); RDW 19.7 % (11.7-14.6); RDW-SD 62.7 fL; WBC 19.41 10^3/uL (4.4-10.8)
[2021-10-23 07:15] LABS: Anion Gap 7.9 mmol/L (3-11); BUN 26 mg/dL (7-18); C-Reactive Protein 5.82 mg/dL (0.0-0.3); CO2 29.1 mmol/L (21.0-32.0); CREATININE 0.7 mg/dL (0.55-1.02); Chloride 105 mmol/L (98-107); Glucose 131 mg/dL (74-106); Potassium 4.1 mmol/L (3.5-5.1); Sodium 142 mmol/L (136-145)
[2021-10-23 07:37] LABS: Absolute Lymphocyte Count 1.55 10^3/uL (1.2-3.4); Absolute Monocyte Count 1.36 10^3/uL (0.1-0.8); Absolute Neutrophil Count 15.92 10^3/uL (1.2-6.7); Bands % 3; Metamyelocytes % 3
[2021-10-23 07:38] LABS: Anisocytosis 1+; Diff Comment Manual Differential
[2021-10-23 08:08] VITALS: BP 125/80; PULSE 77; RESP 19; TEMP 36.7; O2SAT 91
[2021-10-23] MEDS: Insulin Glargine 300 UNITS/3 ML PEN 60 UNITS SC (08:35)
[2021-10-23] MEDS: Insulin Aspart 300 UNITS/3 ML PEN 15 UNITS SC (08:35)
[2021-10-23] MEDS: Nystatin POWDER 60 GM JAR TP ×2 (08:35→21:08)
[2021-10-23] MEDS: Metoprolol CR 100 MG TABCR PO (08:36)
[2021-10-23] MEDS: Omeprazole 20 MG CAPCR 40 MG PO (08:36)
[2021-10-23] MEDS: Torsemide 20 MG TAB PO (08:36)
[2021-10-23] MEDS: Potassium Chloride 10 MEQ CAPCR 20 MEQ PO (08:36)
[2021-10-23] MEDS: Calcium Carbonate *TUMS* 500 MG CHEW PO (08:36)
[2021-10-23] MEDS: Pregabalin 100 MG CAP PO ×3 (08:36→20:28)
[2021-10-23] MEDS: Venlafaxine 75 MG CAPCR PO ×3 (08:36→20:28)
[2021-10-23] MEDS: predniSONE 20 MG TAB PO (08:37)
[2021-10-23] MEDS: Docusate Sodium 100 MG CAP PO ×3 (08:37→20:28)
[2021-10-23] MEDS: amLODIPine 10 MG TAB PO (08:37)
[2021-10-23] MEDS: Ferrous Gluconate 324 MG TAB PO (08:37)
[2021-10-23] MEDS: DULoxetine 20 MG CAP PO (08:37)
[2021-10-23] MEDS: Loratidine 10 MG TAB PO (08:37)
[2021-10-23] MEDS: Psyllium PKT 1 EACH PO (08:37)
[2021-10-23] MEDS: Ascorbic Acid 500 MG TAB PO ×2 (08:37→20:28)
[2021-10-23] MEDS: Zinc Sulfate 220 MG TAB PO (08:37)
[2021-10-23] MEDS: Polyethylene Glycol 3350 17 GM PACKET PO (08:38)
[2021-10-23] MEDS: Protein Nutritional Supplement 16 GM 1 OUNCE PACKET PO ×3 (08:38→20:28)
--- NOTE | 2021-10-23 09:21 | PDOC.CMPRO ---
- If Service Date Differs Date of service: 10/23/21 Time of Service: 09:21 Care Management Progress Note S/O: Hetal was sitting up in bed when CM met with her. She was very pleasant and engaged easily with CM. Leslie stated that she is feeling OK. She reported that she had a PICC placed yesterday which she is pleased about as she has very difficult venous access. It is unclear if Leslie will need IV antibiotics or if she will be discharged on oral medication. Leslie was also unsure if [facility] has the ability to administer IV antibiotics. CM contacted Guerline at [facility] and was informed that they are not able to support the administration of IV antibiotics at this time. If she requires an extended course of IVAB, Leslie will likely need to transition to SB-1. A:Leslie is a 56 year old woman admitted on 10/21/21 with a LLE infection. P:Leslie will return to [facility] when medically cleared by provider. If an extended course of IVAB is required she will likely need to transition to SB-1 as [facility] would not be able to accommodate the administration of IV medications. Leslie will follow up with the facility provider and plan of care and transport via EMS. CM will support Leslie and assess for ongoing discharge needs.
[2021-10-23] MEDS: Normal Saline 500 ML 30 ML IVPB (12:21)
--- NOTE | 2021-10-23 12:46 | PGE_ITS ---
Date of Service Date of service: 10/23/21 Time of Service: 12:47 Assessment and Plan Assessment and plan (1) Open wound of left lower leg: Status: Acute Assessment and plan: POD #4 incision/debridement and removal of clots; continue wound care as per surgical service; awaiting placement of ELIZABETH; continue mepilex dressings; I agree that would be ideal if she could be weaned off prednisone, however she has been on this for long time and her prednisone will have to be weaned over months; certainly worth having conversation w/ her vp organizational development about other immune modulators for her arthritis Professional time spent interviewing and examining patient, discussion of goals of care with hospital team (care management, nursing and consulting professionals) was 30 minutes. (2) Avascular necrosis of bone of left hip: Assessment and plan: increase MS Contin to 30 mg bid; consult orthopedics (she usually sees Dr. Mayfield at [facility] in [place], [place]); I will consult w/ Dr. Birch (3) [place] disease: Assessment and plan: patient is back to her maintenance dose of prednisone 20 mg daily; I will defer addition of other immune modulating agents to her vp organizational development. She is followed by Dr. Tate at [facility] (4) Hypertension: Assessment and plan: continue her home BP meds which includes amlodipine 10 mg daily, Toprol XL 100 mg daily, torsemide 20 mg daily (given to treat her chronic leg edema), (5) MADISON (obstructive sleep apnea): Assessment and plan: patient declines to use CPAP, she has not required supplemental oxygen during the day; however, I will write for prn oxygen at night to prevent nocturnal hypoxemia (6) Hyperlipidemia: Assessment and plan: cont. atorvastatin (7) Still's disease of adult: Assessment and plan: chronicallyon prednisone. resume her home dose of 20 mg daily (completed 3 days of stress dose levels during her perioperative period. doing well. glucos levels are improving. (8) Chronic anticoagulation: Status: Acute Assessment and plan: patient had been on DOAC at the time of her hematoma but this has been held. She has remote PE/DVT from couple years ago. As she is bedbound, she is higher risk for DVT and PE. She has been put on lovenox 40 mg SC by her surgeon. Monitor for any bleeding complications from Lovenox. (9) Hypokalemia: Status: Chronic Assessment and plan: her acute hypokalemia has resolved. However she is chronically on torsemide and should remain on potassium supplements otherwise can use low dose spironolactone (10) Anemia: Status: Acute Assessment and plan: probably d/t acute blood loss from left leg hematoma. Hb 10.9 gm (10/08/21), 9.3 gm (10/13/21), 8.7 gm (10/16/21) check iron levels and replete as needed. monitor hemogram while on lovenox Hb is up to 8.2 gm today. I will give her another dose of Venofer 200 mg today (she had 400 mg daily x 2 days); this should be her last dose. Also I discontinued her oral iron supplement since it was not raising her hemoglobin. I would recheck her iron levels in 6 weeks; monitor her blood counts weekly Subjective Subjective Interval history since last seen: Patient still with a lot of right hip pain from her area of previous avascular necrosis. She feels that the MS Contin really is not touching her pain. We will get some x-rays of her hip and I will consult with Ortho. Exam Narrative Exam Narrative: Obese white female sitting up in bed talking on the phone watching TV. She appears to be in no acute distress. Lungs are clear to auscultation Heart is regular rate and rhythm Abdomen is obese soft nontender nondistended Right hip is tender with point tenderness over the trochanter there is no edema of her leg she has normal pedal pulses in the right foot. Left leg is dressed in Mepilex over the left lower leg wound. Toes left foot are warm with palpable pedal pulses. Objective Last Vital Signs Temp 36.7 C 10/23/21 08:08 Pulse 77 10/23/21 08:08 Resp 19 10/23/21 08:08 BP 125/80 10/23/21 08:08 Pulse Ox 91 L 10/23/21 08:08 Laboratory Results - last 24 hr 10/22/21 10/22/21 10/23/21 06:30 Unknown 06:50 WBC RBC Hgb Hct MCV MCH MCHC RDW Plt Count MPV Immature Gran % Neutrophils % Band Neutrophils % Lymphocytes % Monocytes % Eosinophils % Basophils % Metamyelocytes % Nucleated RBC % Absolute Neutrophils Absolute Lymphocytes Absolute Monocytes Absolute Eosinophils Absolute Basophils RBC Morphology Anisocytosis Sodium 142 Potassium 4.1 Chloride 105 Carbon Dioxide 29.1 Anion Gap 7.9 BUN 26 H Creatinine 0.7 Estimated GFR/1.73 m2 >= 60.00 Glucose 131 H Calcium 9.0 Creatine Kinase 14 L C-Reactive Protein 5.82 H Add-On Test Request DONE 10/23/21 06:50 WBC 19.41 H RBC 2.98 L Hgb 8.2 L Hct 26.2 L MCV 88 MCH 27.5 MCHC 31.3 L RDW 19.7 H Plt Count 569 H MPV 10.1 Immature Gran % 0.0 Neutrophils % 79.0 Band Neutrophils % 3 Lymphocytes % 8.0 Monocytes % 7.0 Eosinophils % 0.0 Basophils % 0.0 Metamyelocytes % 3 Nucleated RBC % 1.0 H Absolute Neutrophils 15.92 H Absolute Lymphocytes 1.55 Absolute Monocytes 1.36 H Absolute Eosinophils 0.00 Absolute Basophils 0.00 RBC Morphology See Below Anisocytosis 1+ Sodium Potassium Chloride Carbon Dioxide Anion Gap BUN Creatinine Estimated GFR/1.73 m2 Glucose Calcium Creatine Kinase C-Reactive Protein Add-On Test Request
[2021-10-23] MEDS: IRON SUCROSE COMPLEX 200 MG in Normal Saline 100 ML 400 MG IVPB (13:26)
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
[2021-10-23 14:35] VITALS: BP 121/75; PULSE 88; RESP 18; TEMP 37.3; O2SAT 95
[2021-10-23] MEDS: Acetaminophen 325 MG TAB 650 MG PO (14:52)
[2021-10-23 15:10] VITALS: RESP 94
--- NOTE | 2021-10-23 15:51 | W.PM.PROGNOT ---
Date of Service Date of service: 10/23/21 Time of Service: 15:51 Assessment and Plan Assessment and plan (1) Open wound of left lower leg: Status: Acute Assessment and plan: I changed the dressing on the left calf. The wound bed is clean and moist. There is no exudate. There is no worrisome bleeding. I applied hydrogel to two large meplex bandages. We will continue dressing changes until a negative pressure dressing is available. Subjective Subjective Interval history since last seen: She says she is feeling a little better but still has some pain associated with the hip. Objective Last Vital Signs Temp 99.1 F 10/23/21 14:35 Pulse 88 10/23/21 14:35 Resp 94 H 10/23/21 15:10 BP 121/75 10/23/21 14:35 Pulse Ox 95 10/23/21 14:35 Laboratory Results - last 24 hr 10/22/21 10/22/21 10/23/21 06:30 Unknown 06:50 WBC RBC Hgb Hct MCV MCH MCHC RDW Plt Count MPV Immature Gran % Neutrophils % Band Neutrophils % Lymphocytes % Monocytes % Eosinophils % Basophils % Metamyelocytes % Nucleated RBC % Absolute Neutrophils Absolute Lymphocytes Absolute Monocytes Absolute Eosinophils Absolute Basophils RBC Morphology Anisocytosis Sodium 142 Potassium 4.1 Chloride 105 Carbon Dioxide 29.1 Anion Gap 7.9 BUN 26 H Creatinine 0.7 Estimated GFR/1.73 m2 >= 60.00 Glucose 131 H Calcium 9.0 Creatine Kinase 14 L C-Reactive Protein 5.82 H Add-On Test Request DONE 10/23/21 06:50 WBC 19.41 H RBC 2.98 L Hgb 8.2 L Hct 26.2 L MCV 88 MCH 27.5 MCHC 31.3 L RDW 19.7 H Plt Count 569 H MPV 10.1 Immature Gran % 0.0 Neutrophils % 79.0 Band Neutrophils % 3 Lymphocytes % 8.0 Monocytes % 7.0 Eosinophils % 0.0 Basophils % 0.0 Metamyelocytes % 3 Nucleated RBC % 1.0 H Absolute Neutrophils 15.92 H Absolute Lymphocytes 1.55 Absolute Monocytes 1.36 H Absolute Eosinophils 0.00 Absolute Basophils 0.00 RBC Morphology See Below Anisocytosis 1+ Sodium Potassium Chloride Carbon Dioxide Anion Gap BUN Creatinine Estimated GFR/1.73 m2 Glucose Calcium Creatine Kinase C-Reactive Protein Add-On Test Request
[2021-10-23] MEDS: HYDROmorphone 2 MG/ML SYR 1 MG IVP (16:43)
[2021-10-23] MEDS: Insulin Aspart 300 UNITS/3 ML PEN SC (17:11)
[2021-10-23] MEDS: Enoxaparin 40 MG/0.4 ML SYR SC (17:13)
[2021-10-23] MEDS: Atorvastatin 40 MG TAB PO (20:28)
[2021-10-23] MEDS: Melatonin 3 MG TAB 6 MG PO (20:28)
[2021-10-23 22:23] VITALS: BP 136/82; PULSE 86; RESP 18; TEMP 37.2; O2SAT 93
[2021-10-23] MEDS: Insulin Glargine 300 UNITS/3 ML PEN 20 UNITS SC (22:33)
[2021-10-23] MEDS: Senna TAB 1 TAB PO (22:33)
--- NOTE | 2021-10-24 | DI.RAD_ITS ---
Exam(s) XR PORTABLE CHEST AP EXAM: XR PORTABLE CHEST AP CLINICAL HISTORY: worsening leucocytosis TECHNIQUE: COMPARISON: CR XR LINE PLACEMENT PICC/CVA from 10/21/2021 FINDINGS: PICC line has been placed on the right, the tip of which overlies the SVC. Cardiac size is mildly en larged. There are mild diffuse perihilar pulmonary infiltrates, little interval change since prior e xamination. IMPRESSION: RADIATION DOSE DELIVERED: Total DLP
[2021-10-24] MEDS: Normal Saline Flush 10 ML SYR IVP ×6 (00:11→23:42)
[2021-10-24] MEDS: PIPERACILLIN/TAZO 3.375 GM in Normal Saline 50 ML IVPB ×5 (00:11→23:41)
[2021-10-24 03:15] VITALS: BP 123/79; PULSE 75; RESP 16; TEMP 36.6; O2SAT 93
[2021-10-24] MEDS: oxyCODONE 5 MG TAB PO ×4 (03:31→21:14)
[2021-10-24] MEDS: HYDROmorphone 2 MG/ML SYR 1 MG IVP ×3 (05:58→18:33)
[2021-10-24 06:52] LABS: Abs Immature Grans 1.78 10^3/uL (0.0-0.06); HCT 26.8 % (36.0-46.0); HGB 7.8 g/dL (11.2-15.7); MCH 26.4 pg (27.0-33.0); MCHC 29.1 % (32.0-36.0); MCV 91 fL (80-95); MPV 9.7 fL (8.0-11.0); RBC 2.95 10^6/uL (3.93-5.22); RDW 20.4 % (11.7-14.6); RDW-SD 66.7 fL; WBC 24.43 10^3/uL (4.4-10.8)
[2021-10-24 07:13] LABS: BUN 36 mg/dL (7-18); CREATININE 0.7 mg/dL (0.55-1.02); Calcium 8.8 mg/dL (8.5-10.1); Chloride 104 mmol/L (98-107); Glucose 257 mg/dL (74-106); Potassium 4.4 mmol/L (3.5-5.1); Sodium 141 mmol/L (136-145)
[2021-10-24 07:34] LABS: Absolute Basophil Count 0.24 10^3/uL (0.0-0.2); Absolute Lymphocyte Count 1.47 10^3/uL (1.2-3.4); Absolute Monocyte Count 0.73 10^3/uL (0.1-0.8); Anisocytosis 2+; Bands % 3; Basophilic Stippling Present; Diff Comment Manual Differential; Hypochromasia 2+; Metamyelocytes % 2; Platelet Count 552 10^3/uL (130-400); Polychromasia Present
[2021-10-24] MEDS: Calcium Carbonate *TUMS* 500 MG CHEW PO (08:03)
[2021-10-24] MEDS: Docusate Sodium 100 MG CAP PO ×3 (08:03→19:46)
[2021-10-24] MEDS: DULoxetine 20 MG CAP PO (08:03)
[2021-10-24] MEDS: predniSONE 20 MG TAB PO ×2 (08:04→17:33)
[2021-10-24] MEDS: amLODIPine 10 MG TAB PO (08:04)
[2021-10-24] MEDS: Zinc Sulfate 220 MG TAB PO (08:04)
[2021-10-24] MEDS: Torsemide 20 MG TAB PO (08:04)
[2021-10-24] MEDS: Ascorbic Acid 500 MG TAB PO ×2 (08:04→19:46)
[2021-10-24] MEDS: Potassium Chloride 10 MEQ CAPCR 20 MEQ PO (08:04)
[2021-10-24] MEDS: Metoprolol CR 100 MG TABCR PO (08:05)
[2021-10-24] MEDS: Omeprazole 20 MG CAPCR 40 MG PO (08:05)
[2021-10-24] MEDS: Pregabalin 100 MG CAP PO ×3 (08:05→19:46)
[2021-10-24] MEDS: Venlafaxine 75 MG CAPCR PO ×3 (08:05→19:46)
[2021-10-24] MEDS: Loratidine 10 MG TAB PO (08:05)
[2021-10-24] MEDS: Psyllium PKT 1 EACH PO (08:06)
[2021-10-24] MEDS: Protein Nutritional Supplement 16 GM 1 OUNCE PACKET PO ×3 (08:07→19:45)
[2021-10-24] MEDS: Polyethylene Glycol 3350 17 GM PACKET PO ×2 (08:07→19:45)
[2021-10-24] MEDS: Insulin Aspart 300 UNITS/3 ML PEN SC ×4 (08:10→18:20)
[2021-10-24] MEDS: Insulin Glargine 300 UNITS/3 ML PEN 45 UNITS SC (08:11)
[2021-10-24] MEDS: Nystatin POWDER 60 GM JAR TP ×2 (08:14→19:46)
[2021-10-24 08:24] VITALS: BP 134/84; PULSE 76; RESP 24; TEMP 36.9; O2SAT 92
[2021-10-24] MEDS: Bisacodyl 5 MG TABEC PO (11:49)
--- NOTE | 2021-10-24 11:55 | W.PM.PROGNOT ---
Date of Service Date of service: 10/24/21 Time of Service: 11:55 Assessment and Plan Assessment and plan (1) Anemia: Status: Acute Assessment and plan: -dose of venofer today (2) Diabetes: (3) GERD (gastroesophageal reflux disease): (4) Hyperlipidemia: (5) Hypertension: (6) Obesity: (7) MADISON (obstructive sleep apnea): (8) Still's disease of adult: Assessment and plan: - Prior to hospitalization, patient was supposed to be tapering down the prednisone 1 mg/week. She has tried and a Saumya and another biologic for her stills disease. She did not tolerate these because of side effects. Prednisone has pretty much been the only med that is controlled her symptoms and she did not have side effects from them. (9) Open wound of left lower leg: Status: Acute Assessment and plan: - Dressing changed today. I did put Mepitel on for better absorption of fluids and anti bacterial properties. Wound looks clean and I do not think it is the source of the elevated white count. However she is not developing any granulation tissue. -She is at high risk for healing issues because of underlying malnutrition/chronic immobility/chronic steroids/diabetes/obesity -Continue nutritional and vitamin therapy as recommended by dietary Hopefully will have-PCOS on Tuesday (10) Leukocytosis (leucocytosis): Status: Acute Assessment and plan: - Chest x-ray is negative UA is negative- -i do not feel it is further infection in her wound. Cultures did grow out Pseudomonas/E. coli/Enterococcus. She is on Zosyn and daptomycin for this D# 3 Z osyn D#5 -She is starting to develop a breakdown on her coccygeal sacral region. I did not visualize this today. I did discuss with Dr. Muro and patient would like a [place]. We will plan on placing a [place] for prevention of continued skin breakdown until we have her usual incontinence system back in stock. -No signs of DVT. She does have a PICC line in her left arm. There is no swelling or pain -I did discuss with pharmacy and daptomycin itself can cause a leukocytosis. She was just tapered back down from 60 to 20 mg of prednisone daily. And she is on chronic long-term prednisone for stills disease (11) MRSA nasal colonization: Status: Acute Assessment and plan: - We will do mucopurulent nasally twice a day for decolonization therapy -Her skin is very fragile from her chronic steroid use and I do not think Hibiclens bathing would be beneficial for her Subjective Subjective Interval history since last seen: Pt is doing well. no headaches. No CP or SOB. no productive cough. no dysuria. no leg pain or swelling. She still has pain in the right hip, slightly more than usual but not significantly more. She is tolerating p.o.'s and not having any diarrhea. Her white count is slightly elevated again today. Her CRP is up to 10 as well. She had been on a prednisone burst for her stills disease but is back down to 20 mg daily. With her last follow-up with her double end production grinder he wanted to start tapering her steroids and a milligram per week. We will see how she feels in the next couple days and consider trying. Steroids are going to inhibit healing with this wound. And she cannot have any surgery on her hip until the wound is healed. Her dressing today is changed and the wound is clean dry and intact with no signs of any acute infectious process. I do not see any obvious source for the elevated white count. The patient is also concerned because she does have a stage I/II bit of breakdown on the coccyx. She is incontinent. We have run out the continence she may develop further breakdown and would like a [place] Santos catheter placed. I will discuss this with Dr. Muro Exam Narrative Exam Narrative: PHYSICAL EXAM GENERAL APPEARANCE: Alert, healthy appearance, oriented, in no acute distress HYDRATION: Well hydrated HEAD, EYES, EARS, NECK, THROAT: Head is normocephalic, pupils equal, round, reactive to light and accommodation, ocular movement intact, sclera clear and no jaundice. ?Dentition intact. No sore throat.? No jaw pain. No thrush NECK: Supple, Trachea midline. No JVD. LUNGS: normal respiration/nl chest excursion. ?Clear to auscultation B/l no R/R/W ?HEART: Regular rate and rhythm, EXTREMITY: No edema or cyanosis? no leg pain, redness, swelling.? No IV infiltration wound LLE: [id number] .5cm minimal granulation. no slough. Periwound skin is clean dry and intact. Patient is diabetic/high-dose steroids/bedbound. ABDOMEN: non tender to palpation. Normal bowel sounds morbidly obese. Internal organs are not palpable NEURO: no focal neuro deficits. Objective Last Vital Signs Temp 36.9 C 10/24/21 08:24 Pulse 76 10/24/21 08:24 Resp 24 10/24/21 08:24 BP 134/84 10/24/21 08:24 Pulse Ox 92 10/24/21 08:24 Laboratory Results - last 24 hr 10/24/21 10/24/21 06:30 06:30 WBC 24.43 H RBC 2.95 L Hgb 7.8 L Hct 26.8 L MCV 91 MCH 26.4 L MCHC 29.1 L D RDW 20.4 H Plt Count 552 H MPV 9.7 Immature Gran % See Differential Neutrophils % 85.0 Band Neutrophils % 3 Lymphocytes % 6.0 Monocytes % 3.0 Eosinophils % 0.0 Basophils % 1.0 Metamyelocytes % 2 Nucleated RBC % 2.0 H Absolute Neutrophils 21.50 H Absolute Lymphocytes 1.47 Absolute Monocytes 0.73 Absolute Eosinophils 0.00 Absolute Basophils 0.24 H RBC Morphology See Below Polychromasia Present Hypochromasia 2+ Basophilic Stippling Present Anisocytosis 2+ Sodium 141 Potassium 4.4 Chloride 104 Carbon Dioxide 29.0 Anion Gap 8.0 BUN 36 H Creatinine 0.7 Estimated GFR/1.73 m2 >= 60.00 Glucose 257 H Calcium 8.8
--- NOTE | 2021-10-24 12:21 | DI.VRAD_ITS ---
PROCEDURE INFORMATION: Exam: XR Chest Exam date and time: 10/24/2021 11:30 AM Age: 56 years old Clinical indication: Other: Worsening leucocyosis TECHNIQUE: Imaging protocol: Radiologic exam of the chest. Views: 1 view. COMPARISON: CR XR LINE PLACEMENT PICC/CVA 10/21/2021 10:18 AM FINDINGS: Tubes, catheters and devices: Right-sided PICC line in satisfactory position. Lungs: Patchy airspace and interstitial opacities bilaterally, demonstrating improvement since previous study. No focal consolidation. Pleural spaces: Unremarkable. No pleural effusion. No pneumothorax. Heart/Mediastinum: Cardiomegaly. Bones/joints: Unremarkable. IMPRESSION: Patchy airspace and interstitial opacities bilaterally, demonstrating improvement since previous study. Dictated and Authenticated by: Lorie Gilliam MD. Ordering:PEDRO Harman MD
[2021-10-24 13:30] LABS: Bilirubin Negative (Negative); Blood Negative (Negative); Clarity Clear (Clear); Glucose Negative (Negative); Ketones Negative (Negative); Leukocyte Esterase Negative (Negative); Nitrite Negative (Negative); Specific Gravity 1.015 (1.005-1.025); Urobilinogen 0.2 EU/dL (Up TO 0.2); pH 5.5 (5-8)
[2021-10-24 13:45] LABS: Lab Add On Test DONE
[2021-10-24 14:00] LABS: C-Reactive Protein 10.92 mg/dL (0.0-0.3)
[2021-10-24] MEDS: Normal Saline 500 ML 30 ML IVPB (14:40)
[2021-10-24 15:14] VITALS: BP 142/81; PULSE 89; RESP 19; TEMP 36.2; O2SAT 95
[2021-10-24] MEDS: IRON SUCROSE COMPLEX 200 MG in Normal Saline 100 ML 400 MG IVPB (16:10)
[2021-10-24] MEDS: Enoxaparin 40 MG/0.4 ML SYR SC (17:27)
--- NOTE | 2021-10-24 17:43 | PGE_ITS ---
Date of Service Date of service: 10/24/21 Time of Service: 17:00 Assessment and Plan Assessment and plan (1) Open wound of left lower leg: Status: Acute Assessment and plan: POD #5 incision/debridement and removal of clots LLE infected hematoma/wound; Wound cx w/ Pseudomonas, Enterococcus faecalis, GNR - Continue current abx. Abx changed to daptomycin + zosyn yesterday. I am concerned about the worsening white count today, but per surgery, the wound is actually looking better, so we are looking at a different source. (2) Still's disease of adult: Assessment and plan: Per patient, prior flares of Still's disease had resulted in leucocytosis. Will trial increasing prednisone to 40 mg daily. Normally on prednisone 20 mg PO daily. (3) Avascular necrosis of bone of left hip: Assessment and plan: Continue MS Contin to 30 mg bid. Orthopedics consulted. Is followed by ortho at [facility]. (4) [place] disease: Assessment and plan: On chronic prednisone 20 mg daily, followed by rheumatology. (5) Hypertension: Assessment and plan: Continue amlodipine 10 mg daily, Toprol XL 100 mg daily, torsemide 20 mg daily. (6) [place] (obstructive sleep apnea): Assessment and plan: Refuses CPAP. Continue prn O2. (7) Chronic anticoagulation: Status: Acute Assessment and plan: H/o DVT/PE. Was on anticoagulation at the time of LLE injury. Continue lovenox 40 mg SCdaily. (8) Anemia: Status: Acute Assessment and plan: Agree that this is due to acute blood loss from left leg hematoma in addition to blood draws. Today's Hgb is down to 7.8 (from 8.2). No indication for blood transfusion at this time. Receiving venofer. Hospitalist will continue to follow. Subjective Subjective Interval history since last seen: Ms Schaffer feels itchy today - like when she does when her Still's disease is acting up. She states that when this happens, her prednisone dose usually gets increased. Denies dizziness, chest pain, shortness of breath, nausea. Exam Narrative Exam Narrative: General: Very pleasant Obese female with Cushinoid features, A&Ox3, NAD HEENT: EOMI, MMM Heart: RRR, no m/r/g Lungs: Diminished breath sounds anteriorly Abdomen: soft, nontender, nondistended Extremities: B feet/heels in heel protectors, LLE dressed Objective Last Vital Signs Temp 36.2 C L 10/24/21 15:14 Pulse 89 10/24/21 15:14 Resp 19 10/24/21 15:14 BP 142/81 H 10/24/21 15:14 Pulse Ox 95 10/24/21 15:14 Laboratory Results - last 24 hr 10/24/21 10/24/21 10/24/21 06:30 06:30 06:30 WBC 24.43 H RBC 2.95 L Hgb 7.8 L Hct 26.8 L MCV 91 MCH 26.4 L MCHC 29.1 L D RDW 20.4 H Plt Count 552 H MPV 9.7 Immature Gran % See Differential Neutrophils % 85.0 Band Neutrophils % 3 Lymphocytes % 6.0 Monocytes % 3.0 Eosinophils % 0.0 Basophils % 1.0 Metamyelocytes % 2 Nucleated RBC % 2.0 H Absolute Neutrophils 21.50 H Absolute Lymphocytes 1.47 Absolute Monocytes 0.73 Absolute Eosinophils 0.00 Absolute Basophils 0.24 H RBC Morphology See Below Polychromasia Present Hypochromasia 2+ Basophilic Stippling Present Anisocytosis 2+ Sodium 141 Potassium 4.4 Chloride 104 Carbon Dioxide 29.0 Anion Gap 8.0 BUN 36 H Creatinine 0.7 Estimated GFR/1.73 m2 >= 60.00 Glucose 257 H Calcium 8.8 C-Reactive Protein Urine Color Urine Clarity Urine pH Ur Specific [place] Urine Protein Urine Ketones Urine Blood Urine Nitrite Urine Bilirubin Urine Urobilinogen Ur Leukocyte Esterase Urine Glucose Add-On Test Request DONE 10/24/21 10/24/21 06:30 12:50 WBC RBC Hgb Hct MCV MCH MCHC RDW Plt Count MPV Immature Gran % Neutrophils % Band Neutrophils % Lymphocytes % Monocytes % Eosinophils % Basophils % Metamyelocytes % Nucleated RBC % Absolute Neutrophils Absolute Lymphocytes Absolute Monocytes Absolute Eosinophils Absolute Basophils RBC Morphology Polychromasia Hypochromasia Basophilic Stippling Anisocytosis Sodium Potassium Chloride Carbon Dioxide Anion Gap BUN Creatinine Estimated GFR/1.73 m2 Glucose Calcium C-Reactive Protein 10.92 H Urine Color Yellow Urine Clarity Clear Urine pH 5.5 Ur Specific [place] 1.015 Urine Protein Negative Urine Ketones Negative Urine Blood Negative Urine Nitrite Negative Urine Bilirubin Negative Urine Urobilinogen 0.2 Ur Leukocyte Esterase Negative Urine Glucose Negative Add-On Test Request
--- NOTE | 2021-10-24 19:26 | NUR.NOTE ---
Nursing Note: I have reviewed Manasa Cerrato's documentation and find it complete.
[2021-10-24] MEDS: Atorvastatin 40 MG TAB PO (19:46)
[2021-10-24] MEDS: Senna TAB 1 TAB PO (19:46)
[2021-10-24] MEDS: Insulin Glargine 300 UNITS/3 ML PEN 25 UNITS SC (21:13)
[2021-10-24] MEDS: Melatonin 3 MG TAB 6 MG PO (21:14)
[2021-10-24 23:20] VITALS: BP 140/80; PULSE 88; RESP 18; TEMP 36.7; O2SAT 95
[2021-10-24] MEDS: Refresh PLUS Eye Drops 0.4ml 1 EACH OU (23:41)
[2021-10-25] MEDS: Normal Saline Flush 10 ML SYR IVP ×5 (05:57→21:13)
[2021-10-25] MEDS: PIPERACILLIN/TAZO 3.375 GM in Normal Saline 50 ML IVPB (05:57)
[2021-10-25] MEDS: oxyCODONE 5 MG TAB PO ×2 (06:02→12:46)
[2021-10-25 06:56] LABS: Abs Immature Grans 2.87 10^3/uL (0.0-0.06); HCT 30.3 % (36.0-46.0); HGB 8.6 g/dL (11.2-15.7); MCH 26.5 pg (27.0-33.0); MCHC 28.4 % (32.0-36.0); MCV 93 fL (80-95); MPV 10.2 fL (8.0-11.0); RBC 3.25 10^6/uL (3.93-5.22); RDW 21.7 % (11.7-14.6); RDW-SD 68.7 fL
[2021-10-25 07:07] LABS: WBC 32.15 10^3/uL (4.4-10.8)
[2021-10-25 07:09] LABS: Anion Gap 7.8 mmol/L (3-11); BUN 51 mg/dL (7-18); CO2 31.2 mmol/L (21.0-32.0); Calcium 9.2 mg/dL (8.5-10.1); Chloride 105 mmol/L (98-107); Estimated GFR 57.15 (mL/min/1.73m2); Glucose 195 mg/dL (74-106); Magnesium 2.1 mg/dL (1.8-2.4); Potassium 4.6 mmol/L (3.5-5.1); Sodium 144 mmol/L (136-145)
[2021-10-25 07:26] LABS: Absolute Basophil Count 1.29 10^3/uL (0.0-0.2); Absolute Eosinophil Count 0.32 10^3/uL (0.0-0.7); Absolute Lymphocyte Count 1.61 10^3/uL (1.2-3.4); Absolute Monocyte Count 1.29 10^3/uL (0.1-0.8); Absolute Neutrophil Count 27.33 10^3/uL (1.2-6.7); Bands % 3; Platelet Count 672 10^3/uL (130-400)
[2021-10-25 07:27] LABS: Anisocytosis 2+; Basophilic Stippling Present; Diff Comment Manual Differential; Hypochromasia 2+; Metamyelocytes % 1; Polychromasia Present
[2021-10-25 07:28] LABS: Poikilocytes 2+
[2021-10-25 08:05] VITALS: BP 130/89; PULSE 87; RESP 20; TEMP 36.6; O2SAT 91
[2021-10-25] MEDS: Protein Nutritional Supplement 16 GM 1 OUNCE PACKET PO ×3 (08:42→21:09)
[2021-10-25] MEDS: Polyethylene Glycol 3350 17 GM PACKET PO ×2 (08:43→21:10)
[2021-10-25] MEDS: Psyllium PKT 1 EACH PO (08:43)
[2021-10-25] MEDS: Refresh PLUS Eye Drops 0.4ml 1 EACH OU (08:43)
[2021-10-25] MEDS: Nystatin POWDER 60 GM JAR TP ×2 (08:45→21:14)
[2021-10-25] MEDS: Omeprazole 20 MG CAPCR 40 MG PO (08:46)
[2021-10-25] MEDS: Calcium Carbonate *TUMS* 500 MG CHEW PO (08:46)
[2021-10-25] MEDS: Torsemide 20 MG TAB PO (08:46)
[2021-10-25] MEDS: predniSONE 20 MG TAB 40 MG PO (08:46)
[2021-10-25] MEDS: Metoprolol CR 100 MG TABCR PO (08:46)
[2021-10-25] MEDS: amLODIPine 10 MG TAB PO (08:46)
[2021-10-25] MEDS: Loratidine 10 MG TAB PO (08:47)
[2021-10-25] MEDS: DULoxetine 20 MG CAP PO (08:47)
[2021-10-25] MEDS: Docusate Sodium 100 MG CAP PO ×3 (08:47→21:09)
[2021-10-25] MEDS: Pregabalin 100 MG CAP PO ×3 (08:47→21:09)
[2021-10-25] MEDS: Potassium Chloride 10 MEQ CAPCR 20 MEQ PO (08:47)
[2021-10-25] MEDS: Venlafaxine 75 MG CAPCR PO ×3 (08:47→21:09)
[2021-10-25] MEDS: Zinc Sulfate 220 MG TAB PO (08:47)
[2021-10-25] MEDS: Ascorbic Acid 500 MG TAB PO ×2 (08:47→21:09)
[2021-10-25] MEDS: Insulin Aspart 300 UNITS/3 ML PEN SC ×7 (08:48→22:54)
[2021-10-25] MEDS: Insulin Glargine 300 UNITS/3 ML PEN 45 UNITS SC (08:48)
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
[2021-10-25 12:01] VITALS: BP 149/96; PULSE 93; RESP 20; TEMP 36.8; O2SAT 91
--- NOTE | 2021-10-25 14:46 | PGE_ITS ---
Date of Service Date of service: 10/25/21 Time of Service: 14:47 Assessment and Plan Assessment and plan (1) Open wound of left lower leg: Status: Acute Assessment and plan: POD #6 incision/debridement and removal of clots LLE infected hematoma/wound; Wound cx w/ Pseudomonas, Enterococcus faecalis, ESBL Klebsiella. Change zosyn to meropenem, continue daptomycin. COnsider ID consult. WBC again worse, but I am not sure if it reflects the wound infection, flare of Still's, or response to steroids. Awaiting negative pressure dressing, per surgery. (2) Still's disease of adult: Assessment and plan: Per patient, prior flares of Still's disease had resulted in leucocytosis. Continue prednisone to 40 mg daily. Normally on prednisone 20 mg PO daily. (3) Steroid-induced hyperglycemia: Status: Acute Assessment and plan: Increaes am lantus to 50 units SC; HS lantus to 30 units SC. Continue ressistant SSi + 1 unit: 5 grams CHO coverage. (4) Avascular necrosis of bone of left hip: Assessment and plan: Continue MS Contin to 30 mg bid. Orthopedics consulted. Is followed by ortho at [facility]. (5) [place] disease: Assessment and plan: On chronic prednisone 20 mg daily, followed by rheumatology. (6) Hypertension: Assessment and plan: Continue amlodipine 10 mg daily, Toprol XL 100 mg daily, torsemide 20 mg daily. (7) [place] (obstructive sleep apnea): Assessment and plan: Refuses CPAP. Continue prn O2. (8) Chronic anticoagulation: Status: Acute Assessment and plan: H/o DVT/PE. Was on anticoagulation at the time of LLE injury. Continue lovenox 40 mg SC daily. (9) Anemia: Status: Acute Assessment and plan: Due to acute blood loss from left leg hematoma in addition to blood draws. Hgb better. Receiving venofer. Continue to monitor H/H. Hospitalist will continue to follow. Discussed with Dr Ramirez. Subjective Subjective Interval history since last seen: Ms Schaffer states that she is feeling better today. The pain in her left leg is controlled. She is less itchy. Still no BM. She would rather not use a suppository or an enema. Denies dizziness, chest pain, shortness of breath, nausea. Exam Narrative Exam Narrative: General: Very pleasant Obese female with Cushinoid features, A&Ox3, NAD HEENT: EOMI, MMM Heart: RRR, no m/r/g Lungs: CTAB Abdomen: soft, nontender, nondistended Extremities: B feet/heels in heel protectors, LLE dressed Objective Last Vital Signs Temp 36.8 C 10/25/21 12:01 Pulse 93 H 10/25/21 12:01 Resp 20 10/25/21 12:01 BP 149/96 H 10/25/21 12:01 Pulse Ox 91 L 10/25/21 12:01 Laboratory Results - last 24 hr 10/25/21 10/25/21 06:05 06:05 WBC 32.15 H* RBC 3.25 L Hgb 8.6 L Hct 30.3 L MCV 93 MCH 26.5 L MCHC 28.4 L RDW 21.7 H Plt Count 672 H MPV 10.2 Immature Gran % See Differential Neutrophils % 82.0 Band Neutrophils % 3 Lymphocytes % 5.0 Monocytes % 4.0 Eosinophils % 1.0 Basophils % 4.0 Metamyelocytes % 1 Nucleated RBC % 3.0 H Absolute Neutrophils 27.33 H Absolute Lymphocytes 1.61 Absolute Monocytes 1.29 H Absolute Eosinophils 0.32 Absolute Basophils 1.29 H RBC Morphology See Below Polychromasia Present Hypochromasia 2+ Poikilocytosis 2+ Basophilic Stippling Present Anisocytosis 2+ Sodium 144 Potassium 4.6 Chloride 105 Carbon Dioxide 31.2 Anion Gap 7.8 BUN 51 H Creatinine 1.0 Estimated GFR/1.73 m2 57.15 Glucose 195 H Calcium 9.2 Magnesium 2.1
[2021-10-25 15:24] LABS: C-Reactive Protein 10.76 mg/dL (0.0-0.3)
--- NOTE | 2021-10-25 15:24 | WOUNDCONS_ITS ---
- If Service Date Differs Date of service: 10/25/21 Time of Service: 15:26 Wound Initial Evaluation Narrative: Patient who has been here being seen by both surgical and hospitalist services. Admitting diagnosis was left leg infection. She also has a hx significant for DM, Stills disease, [place]'s disease, Avascular necrosis of the left hip. Surgical services has been managing the wound. There was concern this morning due to her WBC increasing to a critical level of 32,000. They asked for input from this wound nurse. Patient was agreeable to wound nursing at looking at the wound. H&P , progress notes and testing were reviewed. WBC 32.15 H&H 8.6-30.3 , up from 7.8, and 26.8. 200 mg of venofer was given yesterday D-Dimer 1041 BUN 51 CRP 10.76. - Wound Left Tib/Fib(lower leg) Wound Type: Statis Ulcer Wound General Appearance: Draining, Unapproximated Wound Bed Greatest Portion: Pale [place] Wound Bed Lesser Portion: Red (Granulation) Wound Surrounding Tissue Appearance: [place] Percent of Wound Bed Granulated/Red: 10 Wound Length: 20.4 cm Wound Width: 9.3 cm Wound Depth: 0.2 cm Wound Drainage Amount: Minimal Wound Drainage Odor: Sweet Wound Drainage Description: Brown Wound Topical Solution/Irrigant: Antibiotic Irrigant (Anasept) Wound Debridement Method: Gauze Wound Debridement Result: Other (Pale pink wound bed) Wound Debridement Amount of Tissue Removed: Minimal Lumbar/Sacral Wound Type: Other (area of risk) Wound General Appearance: Other (At risk for skin breakdown) Wound Surrounding Tissue Appearance: [place] Wound Drainage Amount: None Wound Drainage Odor: None/Absent Wound Drainage Description: No drainage Wound Topical Solution/Irrigant: Saline Irrigant Wound Debridement Result: Healthy Tissue Revealed Wound Debridement Amount of Tissue Removed: None - Circulation, Sensation, Motion Edema Degree: 2+ Peripheral Pulse Strength: Weak Capillary Refill: Less than 3 seconds Sensation Description: Pain Skin Temperature: Warm Skin Color: Normal - CASIMIRO Comment:: unable to obtain - Pain Pain Level: 7 (with treatment) Pain Description: Burning, Sharp Wound bed is pale pink with minimal granulation tissue. No necrotic tissue noted in the wound base. Will build up a better granulated wound bed with promagan. Will change dressing every other day and monitor wound and labs. - Photo Photo: - Treatment/Dressing Change Topicals/Ointments: None Cleanse With: Anasept Dressing Types: ABD Pad, Collagen (Promagran Prism, Kerlix (Gauze Roll) - Recomendation Recomendation:: Left Lower leg. [place] wound bed with Anasept spray and allow to dwell for two minutes. Debride with gauze, then pat dry. Apply Promagan Prism to the wound bed. Wound bed is moist enough you shouldn't have to moisten it. Cover with 2 ABD pads. Secure with Kerlix. Change every other day or PRN. Buttocks. Cleanse with soap and water, pat Dry. Cover with a Mepilex Sacral. Change every 7 days or PRN. Physcian/Nurse Practioner Notified: Yes (Dr. Ramirez) Referrals: Dietary Treatment Time - Time Total Time Spent with Patient: 1 hour
[2021-10-25 15:37] LABS: TSH (W/Ref FT4) 0.46 uIU/mL (0.36-3.74)
[2021-10-25 15:57] VITALS: BP 143/71; PULSE 91; RESP 19; TEMP 36.8; O2SAT 92
[2021-10-25 16:05] LABS: D-Dimer 1041 ng/mlFEU (<500)
[2021-10-25 16:06] LABS: Procalcitonin 0.6 ng/mL
[2021-10-25] MEDS: HYDROmorphone 2 MG/ML SYR 1 MG IVP (16:11)
[2021-10-25] MEDS: Normal Saline 500 ML 30 ML IVPB (16:11)
[2021-10-25] MEDS: Enoxaparin 40 MG/0.4 ML SYR SC (17:54)
--- NOTE | 2021-10-25 18:48 | NUR.NOTE ---
Nursing Note: I have reviewed the documentation of Manasa Cerrato LPN and find it thorough.
[2021-10-25] MEDS: Atorvastatin 40 MG TAB PO (21:09)
[2021-10-25] MEDS: Insulin Glargine 300 UNITS/3 ML PEN 30 UNITS SC (22:54)
[2021-10-25 23:04] VITALS: BP 154/99; PULSE 100; RESP 22; TEMP 36.9
[2021-10-26] VITALS (21 sets, daily range): BP systolic 106–159; BP diastolic 54–87; PULSE 73–97; RESP 8–22; TEMP 36.6–37.1; O2SAT 90–100
[2021-10-26 07:41] LABS: Abs Immature Grans 3.04 10^3/uL (0.0-0.06); HCT 30.7 % (36.0-46.0); MCH 27.5 pg (27.0-33.0); MCHC 29.3 % (32.0-36.0); MCV 94 fL (80-95); MPV 10.4 fL (8.0-11.0); RBC 3.27 10^6/uL (3.93-5.22); RDW 22.4 % (11.7-14.6); RDW-SD 70.1 fL
[2021-10-26 07:43] LABS: Lab Add On Test DONE
[2021-10-26 07:46] LABS: WBC 35.25 10^3/uL (4.4-10.8)
[2021-10-26 07:53] LABS: Anion Gap 11.4 mmol/L (3-11); CO2 28.6 mmol/L (21.0-32.0); Calcium 9.4 mg/dL (8.5-10.1); Chloride 103 mmol/L (98-107); Estimated GFR 57.15 (mL/min/1.73m2); Glucose 120 mg/dL (74-106); Magnesium 2.3 mg/dL (1.8-2.4); Potassium 4.3 mmol/L (3.5-5.1); Sodium 143 mmol/L (136-145)
[2021-10-26] MEDS: Normal Saline Flush 10 ML SYR IVP ×4 (07:55→22:16)
[2021-10-26] MEDS: Psyllium PKT 1 EACH PO (07:56)
[2021-10-26] MEDS: Protein Nutritional Supplement 16 GM 1 OUNCE PACKET PO (07:56)
[2021-10-26] MEDS: Polyethylene Glycol 3350 17 GM PACKET PO (07:56)
[2021-10-26] MEDS: Nystatin POWDER 60 GM JAR TP ×2 (07:56→21:00)
[2021-10-26 07:57] LABS: BUN 87 mg/dL (7-18)
[2021-10-26] MEDS: predniSONE 20 MG TAB 40 MG PO (07:58)
[2021-10-26] MEDS: Zinc Sulfate 220 MG TAB PO (07:58)
[2021-10-26] MEDS: Loratidine 10 MG TAB PO (07:58)
[2021-10-26] MEDS: Bisacodyl 5 MG TABEC PO (07:58)
[2021-10-26] MEDS: amLODIPine 10 MG TAB PO (07:58)
[2021-10-26] MEDS: Potassium Chloride 10 MEQ CAPCR 20 MEQ PO (07:58)
[2021-10-26] MEDS: Venlafaxine 75 MG CAPCR PO (07:58)
[2021-10-26] MEDS: Torsemide 20 MG TAB PO (07:59)
[2021-10-26] MEDS: DULoxetine 20 MG CAP PO (07:59)
[2021-10-26] MEDS: Docusate Sodium 100 MG CAP PO (07:59)
[2021-10-26] MEDS: Ascorbic Acid 500 MG TAB PO (07:59)
[2021-10-26] MEDS: Pregabalin 100 MG CAP PO (07:59)
[2021-10-26] MEDS: Metoprolol CR 100 MG TABCR PO (07:59)
[2021-10-26] MEDS: Omeprazole 20 MG CAPCR 40 MG PO (07:59)
[2021-10-26] MEDS: Insulin Glargine 300 UNITS/3 ML PEN 50 UNITS SC (08:00)
[2021-10-26] MEDS: Insulin Aspart 300 UNITS/3 ML PEN SC ×3 (08:01→18:35)
[2021-10-26] MEDS: Calcium Carbonate *TUMS* 500 MG CHEW PO (08:03)
[2021-10-26 08:09] LABS: C-Reactive Protein 8.19 mg/dL (0.0-0.3)
[2021-10-26 08:17] LABS: Absolute Basophil Count 0.71 10^3/uL (0.0-0.2); Absolute Eosinophil Count 0.35 10^3/uL (0.0-0.7); Absolute Lymphocyte Count 2.82 10^3/uL (1.2-3.4); Absolute Monocyte Count 2.12 10^3/uL (0.1-0.8); Bands % 1; Metamyelocytes % 2; Myelocytes % 1; Platelet Count 764 10^3/uL (130-400)
[2021-10-26 08:18] LABS: Anisocytosis 2+; Basophilic Stippling Present; Diff Comment Manual Differential; Hypochromasia 2+; Poikilocytes 2+; Polychromasia Present
--- NOTE | 2021-10-26 08:53 | PDOC.CMPRO ---
- If Service Date Differs Date of service: 10/26/21 Time of Service: 08:53 Care Management Progress Note S/O: Hetal was emergently transferred to the ICU today after developing acute hypercapnic respiratory failure requiring bipap. VBGs done at 10:45 revealed a PH of 7.19 and pCO2 of 66. Her WBC has been increasing and is currently 35.25. Prer nursing, Leslie is not feeling well at this time and a visit from CM is not advised. Leslie will not be discharging within the next day or two and will likely return to [facility] when she does unless transfer to a tertiary care center becomes necessary.CM will continue to follow. A:Leslie is a 56 year old woman admitted on 10/21/21 with a LLE infection. P:Leslie will return to [facility] when medically cleared by provider. If an extended course of IVAB is required she will likely need to transition to SB-1 as [facility] would not be able to accommodate the administration of IV medications. Leslie will follow up with the facility provider and plan of care and transport via EMS. CM will support Leslie and assess for ongoing discharge needs.
--- NOTE | 2021-10-26 09:07 | W.PM.PROGNOT ---
Date of Service Date of service: 10/26/21 Time of Service: 09:11 Assessment and Plan Assessment and plan (1) Open wound of left lower leg: Status: Acute Assessment and plan: POD #7 incision/debridement and removal of clots LLE infected hematoma/wound; Wound cx w/ Pseudomonas, Enterococcus faecalis, ESBL Klebsiella. Change zosyn to meropenem, continue daptomycin. COnsider ID consult. WBC continues to increase 35.25, ? reflects the wound infection, flare of Still's, or response to steroids. (2) Still's disease of adult: Assessment and plan: Per patient, prior flares of Still's disease had resulted in leukcocytosis. Continue prednisone to 40 mg daily. Normally on prednisone 20 mg PO daily. (3) Steroid-induced hyperglycemia: Status: Acute Assessment and plan: increase am lantus to 50 units SC; HS lantus to 30 units SC. Continue ressistant SSi + 1 unit: 5 grams CHO coverage. (4) Avascular necrosis of bone of left hip: Assessment and plan: Continue MS Contin to 30 mg bid. Orthopedics consulted. Is followed by ortho at [facility]. (5) [place] disease: Assessment and plan: On chronic prednisone 20 mg daily, followed by rheumatology. (6) Hypertension: Assessment and plan: Continue amlodipine 10 mg daily, Toprol XL 100 mg daily, torsemide 20 mg daily. (7) [place] (obstructive sleep apnea): Assessment and plan: Refuses CPAP. Continue prn O2. (8) Chronic anticoagulation: Status: Acute Assessment and plan: H/o DVT/PE. Was on anticoagulation at the time of LLE injury. Continue lovenox 40 mg SC daily. (9) Anemia: Status: Acute Assessment and plan: Due to acute blood loss from left leg hematoma in addition to blood draws. Hgb better. Receiving venofer. Continue to monitor H/H. Hospitalist will continue to follow. Subjective Subjective Interval history since last seen: Arrived with patient eating breakfast. She states that she is doing well today. She states that she does have some right lower extremity/hip pain. Exam Const General: cooperative, healthy appearing and comfortable Orientation: alert and oriented x3 Resp Effort & Inspection: normal respiratory effort, no audible wheezes and no cough Other: Supplemental 02 Objective Last Vital Signs Temp 36.9 C 10/26/21 08:05 Pulse 97 H 10/26/21 08:05 Resp 20 10/26/21 08:05 BP 129/87 10/26/21 08:05 Pulse Ox 94 10/26/21 08:05 Laboratory Results - last 24 hr 10/25/21 10/25/21 10/25/21 14:50 14:50 14:50 WBC RBC Hgb Hct MCV MCH MCHC RDW Plt Count MPV Immature Gran % Neutrophils % Band Neutrophils % Lymphocytes % Monocytes % Eosinophils % Basophils % Metamyelocytes % Myelocytes % Nucleated RBC % Absolute Neutrophils Absolute Lymphocytes Absolute Monocytes Absolute Eosinophils Absolute Basophils RBC Morphology Polychromasia Hypochromasia Poikilocytosis Basophilic Stippling Anisocytosis D-Dimer 1041 H Sodium Potassium Chloride Carbon Dioxide Anion Gap BUN Creatinine Estimated GFR/1.73 m2 Glucose Calcium Magnesium C-Reactive Protein 10.76 H Procalcitonin 0.6 TSH Add-On Test Request 10/25/21 10/26/21 10/26/21 14:50 06:50 06:50 WBC 35.25 H* RBC 3.27 L Hgb 9.0 L Hct 30.7 L MCV 94 MCH 27.5 MCHC 29.3 L RDW 22.4 H Plt Count 764 H* MPV 10.4 Immature Gran % See Differential Neutrophils % 79.0 Band Neutrophils % 1 Lymphocytes % 8.0 Monocytes % 6.0 Eosinophils % 1.0 Basophils % 2.0 Metamyelocytes % 2 Myelocytes % 1 Nucleated RBC % 2.0 H Absolute Neutrophils 28.20 H Absolute Lymphocytes 2.82 Absolute Monocytes 2.12 H Absolute Eosinophils 0.35 Absolute Basophils 0.71 H RBC Morphology See Below Polychromasia Present Hypochromasia 2+ Poikilocytosis 2+ Basophilic Stippling Present Anisocytosis 2+ D-Dimer Sodium 143 Potassium 4.3 Chloride 103 Carbon Dioxide 28.6 Anion Gap 11.4 H BUN 87 H* Creatinine 1.0 Estimated GFR/1.73 m2 57.15 Glucose 120 H Calcium 9.4 Magnesium 2.3 C-Reactive Protein Procalcitonin TSH 0.46 Add-On Test Request 10/26/21 10/26/21 06:50 06:50 WBC RBC Hgb Hct MCV MCH MCHC RDW Plt Count MPV Immature Gran % Neutrophils % Band Neutrophils % Lymphocytes % Monocytes % Eosinophils % Basophils % Metamyelocytes % Myelocytes % Nucleated RBC % Absolute Neutrophils Absolute Lymphocytes Absolute Monocytes Absolute Eosinophils Absolute Basophils RBC Morphology Polychromasia Hypochromasia Poikilocytosis Basophilic Stippling Anisocytosis D-Dimer Sodium Potassium Chloride Carbon Dioxide Anion Gap BUN Creatinine Estimated GFR/1.73 m2 Glucose Calcium Magnesium C-Reactive Protein 8.19 H Procalcitonin TSH Add-On Test Request DONE
[2021-10-26] MEDS: Normal Saline 1,000 ML 1000 ML IV (09:42)
--- NOTE | 2021-10-26 10:30 | DI.CT_ITS ---
Exam(s) CT ABD AORTA CTA W RUNOFF EXAM: CT ABD AORTA CTA W RUNOFF CLINICAL HISTORY: non healing wound/hx of extensive trauma. TECHNIQUE: Imaging Protocol: Axial CT angiography was performed with multi-slice acquisition and mu lti-planar and/or 3D reconstructions. CONTRAST MATERIAL: Intravenous: Omnipaque 350 Contrast volume:150 mL Oral: No COMPARISON: No exams were available for comparison FINDINGS: The examination is limited due to patient motion artifact. Vascular Structures: Abdomen and pelvis: There is minimal atherosclerosis. Celiac [place]/SMA: No evidence of occlusion or significant stenosis. Renal Arteries: No evidence of occlusion or significant stenosis. There is a single renal artery perf using each kidney. Aorta: No aneurysm, occlusion or significant stenosis. No dissection. Iliac Arteries: No evidence of occlusion or significant stenosis. Lower extremities: Right: Common Femoral: No evidence of occlusion or significant stenosis. Femoral: No evidence of occlusion or significant stenosis. Minimal atherosclerosis. Deep Femoral Artery: No evidence of occlusion or significant stenosis. Popliteal: No evidence of occlusion or significant stenosis. Knee Trifurcation: No evidence of occlusion or significant stenosis. Anterior Tibial: No evidence of occlusion or significant stenosis. Posterior Tibial: No evidence of occlusion or significant stenosis. Peroneal:No evidence of occlusion or significant stenosis. Dorsalis Pedis: No evidence of occlusion or significant stenosis. Left: Common Femoral: No evidence of occlusion or significant stenosis. Minimal atherosclerosis. Femoral: No evidence of occlusion or significant stenosis. Deep femoral artery: No evidence of occlusion or significant stenosis. Popliteal: No evidence ofocclusion or significant stenosis. Knee Trifurcation: No evidence of occlusion or significant stenosis. Anterior tibial: No evidence of occlusion or significant stenosis. Posterior Tibial: No evidence of occlusion or significant stenosis. Peroneal: No evidence of occlusion or significant stenosis. Dorsalis Pedis: No evidence of occlusion or significant stenosis. Soft Tissues: Lung bases: Scarring or atelectasis in the lung bases. Liver: Normal density. No measurable mass. There is pneumobilia. Gallbladder and biliary tract: Status post cholecystectomy. No biliary ductal dilatation. Pneumobil ia is present. Pancreas: Normal density, no abnormal calcifications or inflammatory process. Spleen: Normal. Kidneys: Normal size, contour and axis. No radiodense stones or obstructive uropathy. No masses seen. Adrenal glands: No masses seen. Aorta: Abdominal portion non-dilated. Mild atherosclerosis. Bladder: The urinary bladder is incompletely distended. There is a De Los Santos catheter in place. There i s air seen within the urinary bladder likely reflecting the catheterization. Bowel: No obstruction or bowel wall thickening. No evidence of appendicitis. The stomach is distende d. Peritoneal cavity: No ascites, collection or mesenteric inflammatory response. No free air. Bones: Within normal limits for the patient's age. Extensive orthopedic hardware is noted. Sideplat e and screws are seen in the right acetabulum, distal left femur and right tibia. There is an intram edullary flakita and screw in the proximal left femur. Orthopedic screws are seen in both superior pubic rami. Soft tissues: There is edema seen in the soft tissues of the left lower extremity but no focal fluid collection is seen to suggest an abscess. IMPRESSION: 1. Normal CT Angiogram of the Abdomen, Pelvis and Lower Extremities. Minimal atherosclerosis is pres ent. 2. Postsurgical changes in the pelvis and both lower extremities as described. 3. Edema seen in the left lower extremity but no focal fluid collection is seen to suggest an abscess . RADIATION DOSE DELIVERED: 2,381.87mGy.cm Total DLP 2,381.87mGy.cm Total DLP DATA REPOSITORY: All CT scans at this facility are submitted to the National Radiology Data Registry (NRDR) Dose Index Registry (DIR) with the [employer] (ACR). RADIATION OPTIMIZATION: All CT scans at this facility use at least one of these dose optimization te chniques: automated exposure control; mA and/or kV adjustment per patient size (includes targeted exa ms where dose is matched to clinical indication); or iterative reconstruction.
[2021-10-26] MEDS: Omnipaque 350 MG/ML 100 ML BTL 150 ML IJ (10:37)
--- NOTE | 2021-10-26 10:47 | PGE_ITS ---
Date of Service Date of service: 10/26/21 Time of Service: 11:33 Assessment and Plan Assessment and plan (1) Acute hypercapnic respiratory failure: Status: Acute Assessment and plan: In setting of opioid therapy, possible component of fluid overload (seems to have CHF clinically right now), underlying untreated MADISON. pH of 7.19, pCO2 of 66. Transfer to ICU on BiPAP therapy. Repeat ABG 1 hr after initiation of BiPAP. Obtain CXR. Lasix 40 mg IV x1. If becomes more somnolent, would give narcan. (2) CO2 narcosis: Status: Acute Assessment and plan: As above. D/c MS contin. (3) Open wound of left lower leg: Status: Acute Assessment and plan: POD #7 s/p incision/debridement and removal of clots LLE infected hematoma/wound; Wound cx w/ Pseudomonas, VRE, ESBL Klebsiella. VRE is sensitive to daptomycin. Discussed with pharmacy: meropenem can cause myoclonic jerks, but imipenem/cilastic does not usually cause this. Will make this substitutation. Continue daptomycin. Additionally CT imaging obtained today; results pending. Cnsider ID consult. WBC again worse, but plateauing. I am not sure if it reflects the wound infection, flare of Still's, or response to steroids. Awaiting negative pressure dressing, per surgery. (4) Myoclonus: Status: Acute Assessment and plan: Potential culprits: CO2 retention, meropenem, lyrica. BiPAp, d/c meropenem (substitute with primaxin). Continue lyrica for now. Monitor in the ICU. (5) Still's disease of adult: Assessment and plan: Per patient, prior flares of Still's disease had resulted in leucocytosis. Continue prednisone to 40 mg daily. Normally on prednisone 20 mg PO daily. (6) Steroid-induced hyperglycemia: Status: Acute Assessment and plan: Continue am lantus 50 units SC; HS lantus 30 units SC. Continue ressistant SSi + 1 unit: 5 grams CHO coverage. (7) Avascular necrosis of bone of left hip: Assessment and plan: D/c MS contin due to excessive sedation. Continue prn oxycodone. Orthopedics consulted. Is followed by ortho at [facility]. (8) [place] disease: Assessment and plan: On chronic prednisone 20 mg daily, followed by rheumatology. (9) Hypertension: Assessment and plan: Continue amlodipine 10 mg daily, Toprol XL 100 mg daily, torsemide 20 mg daily. (10) MADISON (obstructive sleep apnea): Assessment and plan: Refuses CPAP. Continue prn O2. (11) Chronic anticoagulation: Status: Acute Assessment and plan: H/o DVT/PE. Was on anticoagulation at the time of LLE injury. Continue lovenox 40 mg SC daily. (12) Anemia: Status: Acute Assessment and plan: Due to acute blood loss from left leg hematoma in addition to blood draws. Hgb better. (9.0 today, up from 8.6 yesterday). Receiving venofer. Continue to monitor H/H. Hospitalist will continue to follow. Total Critical Care Time 60 minutes. Discussed with Yemi Ramirez and [place]. Subjective Subjective Interval history since last seen: Ms Schaffer complains of Ms Contin being too much and wants it discontinued. She states it makes her too groggy. She would rather just take the oxycodone 5 mg every 4 hrs like she used to. She also noticed tremors/jerking today like she once had when she was started on gabapentin. Prednisone does not usually make her shaky. She states she was was once told she is supposed to wear a CPAP mask, but she has not been doing so at home (and also not here). She denies dizziness, chest pain, shortness of breath, nausea. Exam Narrative Exam Narrative: General: Somnolent pleasant Obese female with Cushinoid features and myoclonic jerks; A&Ox3, but definitely less alert than her baseline HEENT: EOMI, MMM Heart: RRR, no m/r/g Lungs: Crackles at B bases, R>L Abdomen: soft, nontender, nondistended Extremities: B feet/heels in heel protectors, LLE dressed Objective Last Vital Signs Temp 36.9 C 10/26/21 08:05 Pulse 97 H 10/26/21 08:05 Resp 20 10/26/21 08:05 BP 129/87 10/26/21 08:05 Pulse Ox 94 10/26/21 08:05 Laboratory Results - last 24 hr 10/25/21 10/25/21 10/25/21 14:50 14:50 14:50 WBC RBC Hgb Hct MCV MCH MCHC RDW Plt Count MPV Immature Gran % Neutrophils % Band Neutrophils % Lymphocytes % Monocytes % Eosinophils % Basophils % Metamyelocytes % Myelocytes % Nucleated RBC % Absolute Neutrophils Absolute Lymphocytes Absolute Monocytes Absolute Eosinophils Absolute Basophils RBC Morphology Polychromasia Hypochromasia Poikilocytosis Basophilic Stippling Anisocytosis D-Dimer 1041 H Sodium Potassium Chloride Carbon Dioxide Anion Gap BUN Creatinine Estimated GFR/1.73 m2 Glucose Calcium Magnesium C-Reactive Protein 10.76 H Procalcitonin 0.6 TSH Add-On Test Request 10/25/21 10/26/21 10/26/21 14:50 06:50 06:50 WBC 35.25 H* RBC 3.27 L Hgb 9.0 L Hct 30.7 L MCV 94 MCH 27.5 MCHC 29.3 L RDW 22.4 H Plt Count 764 H* MPV 10.4 Immature Gran % See Differential Neutrophils % 79.0 Band Neutrophils % 1 Lymphocytes % 8.0 Monocytes % 6.0 Eosinophils % 1.0 Basophils % 2.0 Metamyelocytes % 2 Myelocytes % 1 Nucleated RBC % 2.0 H Absolute Neutrophils 28.20 H Absolute Lymphocytes 2.82 Absolute Monocytes 2.12 H Absolute Eosinophils 0.35 Absolute Basophils 0.71 H RBC Morphology See Below Polychromasia Present Hypochromasia 2+ Poikilocytosis 2+ Basophilic Stippling Present Anisocytosis 2+ D-Dimer Sodium 143 Potassium 4.3 Chloride 103 Carbon Dioxide 28.6 Anion Gap 11.4 H BUN 87 H* Creatinine 1.0 Estimated GFR/1.73 m2 57.15 Glucose 120 H Calcium 9.4 Magnesium 2.3 C-Reactive Protein Procalcitonin TSH 0.46 Add-On Test Request 10/26/21 10/26/21 06:50 06:50 WBC RBC Hgb Hct MCV MCH MCHC RDW Plt Count MPV Immature Gran % Neutrophils % Band Neutrophils % Lymphocytes % Monocytes % Eosinophils % Basophils % Metamyelocytes % Myelocytes % Nucleated RBC % Absolute Neutrophils Absolute Lymphocytes Absolute Monocytes Absolute Eosinophils Absolute Basophils RBC Morphology Polychromasia Hypochromasia Poikilocytosis Basophilic Stippling Anisocytosis D-Dimer Sodium Potassium Chloride Carbon Dioxide Anion Gap BUN Creatinine Estimated GFR/1.73 m2 Glucose Calcium Magnesium C-Reactive Protein 8.19 H Procalcitonin TSH Add-On Test Request DONE
[2021-10-26 10:51] LABS: BE (Venous) -3 mmol/L (-2-3); HCO3 (Venous) 25 mmol/L (23-28); O2 Sat (Venous) 79 %; TCO2 (Venous) 25 mmol/L (24-29); pO2 (Venous) 52 mmHg
[2021-10-26 10:53] LABS: pCO2 (Venous) 66 mmHg (41-51); pH (Venous) 7.19 (7.31-7.41)
[2021-10-26] MEDS: Furosemide 40 MG/4 ML VIAL IVP (12:53)
--- NOTE | 2021-10-26 13:00 | DI.US_ITS ---
APPROVED REPORT EXAM: Comprehensive 2D, Doppler, and color-flow Echocardiogram Patient Location: In-Patient Room/Bed: [id number] Cold Header Operator: Marilee Fernández RDCS (AE) Indications: CHF Other Information Study Quality: Poor. Technically limited study due to body habitus, inability to position patient exa m done supine bedside. Conclusion Technically limited study Borderline concentric left ventricular hypertrophy. Estimated ejection fraction is 55 to 60%. No wa ll motion abnormalities are appreciated The right ventricle was not well visualized. The right atrium was not well visualized Left atrium appears normal in size The aortic valve is mildly sclerotic and probably trileaflet. There is no aortic stenosis or regurgi tation Thickened mitral leaflets with trace mitral regurgitation Normal tricuspid valve with trace regurgitation. Right ventricular systolic pressure could not be es timated Wall motion Left Ventricle The left ventricle is normal size. The overall left ventricular systolic function appears normal. Bor derline concentric left ventricular hypertrophy. There is normal LV segmental wall motion. There is n o ventricular septal defect visualized. LVEF is 55-60%. Right Ventricle Right ventricle is not well visualized. Right ventricular systolic function could not be assessed. Atria The left atrium size is normal. Right atrium is not well visualized. The interatrial septum is intact with no evidence for an atrial septal defect. Aortic Valve The Aortic valve is mildly sclerotic. Aortic valve is probably trileaflet. There is no aortic valvula r stenosis. No aortic regurgitation is present. Mitral Valve Mitral valve leaflets are thickened. No evidence of mitral valve stenosis. Trace mitral regurgitation . Tricuspid Valve The tricuspid valve is normal in structure. There is no tricuspid valve stenosis. Trace tricuspid reg urgitation. Pulmonic Valve Pulmonic valve is not well visualized. There is no pulmonic valvular stenosis. There is no pulmonic v alvular regurgitation. Great Vessels The aortic root is normal in size. The ascending aorta is normal in size. Aortic arch is not well vis ualized. IVC is normal in size and collapses >50% with inspiration. Pericardium There is no pericardial effusion. 2D Dimensions IVSD d PLAX 1.02 cm F: 0.6-1.0 LVPW d PLAX 1.05 cm F: 0.6 - 1.0 LVID d PLAX 4.75 cm F: 3.8 - 5.2 LVDs 3.35 cm F: 2.2 - 3.5 Ao Root d 2.81 cm F: 2.7 - 3.3 Ao Asc Diam d 2.81 cm F: 2.3 - 3.1 LV EF Jono 55.8 % FS 29.10 % M-Mode TAPSE 1.39 cm (M/F) >1.7 LV Diastology MV E' medial 0.076 (>0.07 m/s) E/A Ratio 1.1 LV E/e MED 10.40 (<14) MV E Vmax 0.79 (0.4-1.3 m/s) MV E' lateral 0.082 (>0.1 m/s) MV A Vmax 0.75 (0.4-1.3 m/s) LV E/e LAT 9.60 (<14) MV E/A Ratio 0.99 MV E/E' medial 10.43 MV E/E' lateral 9.60 Aortic Valve LVOT Area 3.01 cm2 AoV Area Vmax 1.77 cm2 LVOT Vmax 0.85 m/s AoV Area/ BSA (Vmax) 0.86 cm2/m2 LVOT Mean Marcel. 0.52 m/s ARLEY Mean Marcel. 1.51 cm2 LVOT Peak Grad 2.9 mmHg ARLEY Mean Marcel. Index 0.74 cm2/m2 LVOT Mean Grad 1.3 mmHg LVOT VTI 0.162 m LVOT Diam s 1.95 cm AoV Vmax 1.45 m/s Velocity Ratio 0.58 AoV Mean Marcel. 1.04 m/s AoV Peak Grad 8.4 mmHg LVOT SV 48.65 mL AoV Mean Grad 4.9 mmHg AoV VTI 0.324 m AoV Area VTI 1.50 cm2 AoV Area/ BSA (VTI) 0.73 cm/m2 Mitral Valve MV DT 338 (160-240 msec) MV PHT 98 msec MV Area PHT 2.24 cm2 MV VTI 0.216 m MV Area VTI 2.25 (4.0-6.0 cm2) Pulmonary Valve PV Vmax 0.96 (0.5-1.5 m/s) RVOT Peak Gr. 2.46 mmHg PV Peak Grad 3.7 mmHg RVOT Mean Gr. 1.55 mmHg PV Mean Grad 2.0 mmHg RVOT VTI 0.139 m PV VTI 0.174 m RVOT Vmax 0.78 m/s
--- NOTE | 2021-10-26 13:00 | DI.RAD_ITS ---
Exam(s) XR PORTABLE CHEST AP EXAM: XR PORTABLE CHEST AP CLINICAL HISTORY: acute hypercapnic respiratory failure TECHNIQUE: 2D digital imaging was performed of the chest. Two images were obtained. AP views were obtained. COMPARISON: CR,XR XR PORTABLE CHEST AP from 10/24/2021 FINDINGS: MEDIASTINUM: Normal. HEART: Cardiac size is stable and at the upper limits of normal to mildly enlarged. PULMONARY VASCULATURE: Normal. LUNGS: On the initial examination there is a poor inspiratory effort causing a apparent worsening of the pulmonary infiltrates compared to 10/24/2021. On the subsequent film, inspiratory effort was impr álvaro. The infiltrates appears similar compared to the examination from 10/24/2021. No new infiltrate s are seen. PLEURAL SPACE: No pleural effusion or pneumothorax. BONE:Within normal limits for the patient's age. OTHER FINDINGS:Normal. IMPRESSION: No definite change in appearance of the lungs compared to 10/24/2021. DATA REPOSITORY: RADIATION DOSE DELIVERED:
--- NOTE | 2021-10-26 13:01 | NUR.NOTE ---
Nursing Note: patient transferred from room 215 to ICU room 222. Patients belongings in transport with patient. VS stable at this time.
[2021-10-26 15:35] LABS: BE (Venous) -3 mmol/L (-2-3); HCO3 (Venous) 25 mmol/L (23-28); O2 Sat (Venous) 92 %; TCO2 (Venous) 25 mmol/L (24-29); pCO2 (Venous) 60 mmHg (41-51); pH (Venous) 7.23 (7.31-7.41); pO2 (Venous) 69 mmHg
[2021-10-26] MEDS: IMIPENEM/CILASTATIN 1,000 MG in Normal Saline 250 ML 250 MG IVPB ×2 (16:10→22:00)
[2021-10-26] MEDS: Enoxaparin 40 MG/0.4 ML SYR SC (18:34)
[2021-10-26 18:53] LABS: BE -2 mmol/L (-2-3); HCO3 25 mmol/L (22-26); pH 7.22 (7.35-7.45); pO2 84 mmHg (80-105); sO2 96 % (95-98); tCO2 25 mmol/L (23-27)
[2021-10-26 19:00] LABS: FIO2 30 %; Site Left Brachial; pCO2 61 mmHg (35-45)
[2021-10-26] MEDS: Naloxone 0.4 MG/ML VIAL IVP (19:15)
[2021-10-26 21:44] LABS: BE (Venous) -1 mmol/L (-2-3); HCO3 (Venous) 26 mmol/L (23-28); O2 Sat (Venous) 72 %; TCO2 (Venous) 26 mmol/L (24-29); pCO2 (Venous) 58 mmHg (41-51); pH (Venous) 7.27 (7.31-7.41); pO2 (Venous) 41 mmHg
[2021-10-27] VITALS (203 sets, daily range): BP systolic 88–150; BP diastolic 39–92; PULSE 62–115; RESP 6–37; TEMP 35.8–36.7; O2SAT 73–100
--- NOTE | 2021-10-27 | DI.CT_ITS ---
Exam(s) CT HEAD WO EXAM: CT HEAD WO CLINICAL HISTORY: encephalopathy. TECHNIQUE: Imaging Protocol: Axial computed tomography images with coronal and sagittal reformatted images were created and reviewed COMPARISON: No exams were available for comparison FINDINGS: There are no skull fractures nor fluid in the visualized paranasal sinuses. There is no evidence of intracranial hemorrhage, mass effect, or shift of midline structures. There are no extra-axial fluid collections. The ventricles are not enlarged or shifted and there is no blo od within the ventricular system nor within the basal cisterns. There is calcification in both vertebral arteries at the skull base as well as within the intracavern ous internal carotid arteries. There is an area of abnormal hypodensity in the high right frontopari etal region which is consistent with prior infarct, age indeterminate. No hemorrhage at this level n or elsewhere in the brain. IMPRESSION: Area of abnormal hypodensity in the high right fronto parietal region most probably related to prior infarction. No obvious acute infarct nor hemorrhage. Vascular calcification at the skull base in the carotid as well as vertebral arteries. If clinically indicated follow-up MRI can be performed. RADIATION DOSE DELIVERED: 1,034.25mGy.cm Total DLP DATA REPOSITORY: All CT scans at this facility are submitted to the National Radiology Data Registry (NRDR) Dose Index Registry (DIR) with the [employer] (ACR). RADIATION OPTIMIZATION: All CT scans at this facility use at least one of these dose optimization te chniques: automated exposure control; mA and/or kV adjustment per patient size (includes targeted exa ms where dose is matched to clinical indication); or iterative reconstruction.
[2021-10-27] MEDS: IMIPENEM/CILASTATIN 1,000 MG in Normal Saline 250 ML 250 MG IVPB ×4 (03:11→21:51)
[2021-10-27 06:28] LABS: BE (Venous) 0 mmol/L (-2-3); HCO3 (Venous) 27 mmol/L (23-28); O2 Sat (Venous) 77 %; TCO2 (Venous) 26 mmol/L (24-29); pCO2 (Venous) 55 mmHg (41-51); pO2 (Venous) 44 mmHg
[2021-10-27 06:35] LABS: HCT 28.6 % (36.0-46.0); MCH 27.3 pg (27.0-33.0); MCV 98 fL (80-95); MPV 9.9 fL (8.0-11.0); Platelet Count 643 10^3/uL (130-400); RBC 2.93 10^6/uL (3.93-5.22); RDW 23.1 % (11.7-14.6); RDW-SD 74.6 fL
[2021-10-27 06:44] LABS: WBC 27.81 10^3/uL (4.4-10.8)
[2021-10-27 06:46] LABS: Anion Gap 8.9 mmol/L (3-11); C-Reactive Protein 6.53 mg/dL (0.0-0.3); CO2 28.1 mmol/L (21.0-32.0); CREATININE 0.9 mg/dL (0.55-1.02); Calcium 8.7 mg/dL (8.5-10.1); Chloride 113 mmol/L (98-107); Glucose 78 mg/dL (74-106); Magnesium 2.2 mg/dL (1.8-2.4); Potassium 3.9 mmol/L (3.5-5.1); Sodium 150 mmol/L (136-145)
[2021-10-27 06:57] LABS: Absolute Eosinophil Count 0.28 10^3/uL (0.0-0.7); Absolute Lymphocyte Count 1.95 10^3/uL (1.2-3.4); Absolute Neutrophil Count 23.92 10^3/uL (1.2-6.7); Anisocytosis 1+; Bands % 2; Diff Comment Manual Differential; Metamyelocytes % 4; Myelocytes % 2
[2021-10-27 07:02] LABS: BUN 84 mg/dL (7-18)
[2021-10-27] MEDS: Normal Saline Flush 10 ML SYR IVP ×2 (07:54→20:23)
[2021-10-27 08:12] LABS: BE (Venous) -1 mmol/L (-2-3); HCO3 (Venous) 26 mmol/L (23-28); O2 Sat (Venous) 86 %; TCO2 (Venous) 25 mmol/L (24-29); pCO2 (Venous) 54 mmHg (41-51); pH (Venous) 7.29 (7.31-7.41); pO2 (Venous) 52 mmHg
[2021-10-27] MEDS: Protein Nutritional Supplement 16 GM 1 OUNCE PACKET PO ×3 (09:10→20:22)
[2021-10-27] MEDS: DEXTROSE 5%-WATER 1,000 ML 75 ML IV (09:13)
[2021-10-27] MEDS: Calcium Carbonate *TUMS* 500 MG CHEW PO (09:15)
[2021-10-27] MEDS: Omeprazole 20 MG CAPCR 40 MG PO (09:15)
[2021-10-27] MEDS: Venlafaxine 75 MG CAPCR PO ×3 (09:15→20:22)
[2021-10-27] MEDS: Zinc Sulfate 220 MG TAB PO (09:15)
[2021-10-27] MEDS: predniSONE 20 MG TAB 40 MG PO (09:16)
[2021-10-27] MEDS: Potassium Chloride 10 MEQ CAPCR 20 MEQ PO (09:16)
[2021-10-27] MEDS: Torsemide 20 MG TAB PO (09:16)
[2021-10-27] MEDS: Ascorbic Acid 500 MG TAB PO ×2 (09:17→20:22)
[2021-10-27] MEDS: amLODIPine 10 MG TAB PO (09:17)
[2021-10-27] MEDS: DULoxetine 20 MG CAP PO (09:17)
[2021-10-27] MEDS: Loratidine 10 MG TAB PO (09:17)
[2021-10-27] MEDS: Docusate Sodium 100 MG CAP PO ×3 (09:17→20:22)
[2021-10-27] MEDS: Naloxone 0.4 MG/ML VIAL IVP (09:24)
--- NOTE | 2021-10-27 09:59 | W.PM.PROGNOT ---
Date of Service Date of service: 10/27/21 Time of Service: 08:50 Assessment and Plan Assessment and plan (1) Acute hypercapnic respiratory failure: Status: Acute Assessment and plan: In setting of opioid therapy, possible component of fluid overload (seems to have CHF clinically right now), underlying untreated MADISON. pH better, but the patient is not back to baseline. Reinistute diuresis, continue BIPAP, getting another dose of narcan. Continue to hold all opioiids and lyrica. (2) CO2 narcosis: Status: Acute Assessment and plan: As above. (3) Open wound of left lower leg: Status: Acute Assessment and plan: POD #8 s/p incision/debridement and removal of clots LLE infected hematoma/wound; Wound cx w/ Pseudomonas, VRE, ESBL Klebsiella. VRE is sensitive to daptomycin. Continue daptomycin, imipenem/cilastin. No evidence of abscess CTA. Cnsider ID consult. WBC better. Awaiting negative pressure dressing, per surgery. (4) Myoclonus: Status: Acute Assessment and plan: Potential culprits: CO2 retention, meropenem, lyrica. As above (5) Still's disease of adult: Assessment and plan: Per patient, prior flares of Still's disease had resulted in leucocytosis. Continue prednisone to 40 mg daily. Normally on prednisone 20 mg PO daily. (6) Steroid-induced hyperglycemia: Status: Acute Assessment and plan: Patient is NPO and long acting insulin is on hold as BGs are borderline low. Actually, getting D5W x 250 cc due to borderline low BGs and hypernatremia. (7) Avascular necrosis of bone of left hip: Assessment and plan: Holding opioids. prn tylenol only. Orthopedics consulted. Is followed by ortho at [facility]. (8) [place] disease: Assessment and plan: On chronic prednisone 20 mg daily, followed by rheumatology. (9) Hypertension: Assessment and plan: Continue amlodipine 10 mg daily, Toprol XL 100 mg daily, torsemide 20 mg daily. (10) MADISON (obstructive sleep apnea): Assessment and plan: Refuses CPAP. Continue prn O2. (11) Chronic anticoagulation: Status: Acute Assessment and plan: H/o DVT/PE. Was on anticoagulation at the time of LLE injury. Continue lovenox 40 mg SC daily. (12) Anemia: Status: Acute Assessment and plan: Due to acute blood loss from left leg hematoma in addition to blood draws. Hgb stable. Receiving venofer. Continue to monitor H/H. Hospitalist will continue to follow. Total Critical Care Time [address] Reid Subjective Subjective Interval history since last seen: Spent the night in the ICU on BIPAP with settings of 18/5 30% FiO2. There was no dramatic response to narcan clinically, but the pH did improve, so no intubation was pursued. She requested that the BiPAP be removed this morning. She remains somnolent, however, and continues to have myoclonic jerks. She states her RLE is bothering her. She denies dizziness, chest pain, reports a little shortness of breath, denies n/v. Exam Narrative Exam Narrative: General: Somnolent arousable Obese female who is A&Ox3, but having myoclonic jerks, is slower to respond, not at her baseline mental status. Cushinoid features. Her mental status has improved somewhat from last night. HEENT: EOMI, MMM, pinpoint pupils Heart: RRR, no m/r/g Lungs: Diminished breath sounds B Abdomen: soft, nontender, nondistended Extremities: B feet/heels in heel protectors, LLE dressed Objective Last Vital Signs Temp 36.5 C 10/27/21 04:00 Pulse 78 10/27/21 09:06 Resp 14 10/27/21 09:06 BP 127/60 10/27/21 01:00 Pulse Ox 93 10/27/21 09:06 Laboratory Results - last 24 hr 10/25/21 10/26/21 10/26/21 06:05 10:45 12:00 WBC RBC Hgb Hct MCV MCH MCHC RDW Plt Count MPV Immature Gran % Neutrophils % Band Neutrophils % Lymphocytes % Monocytes % Eosinophils % Basophils % Metamyelocytes % Myelocytes % Nucleated RBC % Absolute Neutrophils Absolute Lymphocytes Absolute Monocytes Absolute Eosinophils Absolute Basophils RBC Morphology Anisocytosis ABG Sample Site Cancelled ABG pH Cancelled ABG pCO2 Cancelled ABG pO2 Cancelled ABG HCO3 Cancelled ABG Total CO2 Cancelled ABG O2 Saturation Cancelled ABG Base Excess Cancelled VBG pH 7.19 L* VBG pCO2 66 H* VBG pO2 52 VBG HCO3 25 VBG Total CO2 25 VBG O2 Saturation 79 VBG Base Excess -3 L Oxygen Liter Flow Cancelled FiO2 Cancelled Sodium Potassium Chloride Carbon Dioxide Anion Gap BUN Creatinine Estimated GFR/1.73 m2 Glucose Calcium Magnesium C-Reactive Protein l Occult Bld Clinic Path Cons Comment SEE COMMENT 10/26/21 10/26/21 10/26/21 12:45 15:30 18:50 WBC RBC Hgb Hct MCV MCH MCHC RDW Plt Count MPV Immature Gran % Neutrophils % Band Neutrophils % Lymphocytes % Monocytes % Eosinophils % Basophils % Metamyelocytes % Myelocytes % Nucleated RBC % Absolute Neutrophils Absolute Lymphocytes Absolute Monocytes Absolute Eosinophils Absolute Basophils RBC Morphology Anisocytosis ABG Sample Site Left Brachial ABG pH 7.22 L ABG pCO2 61 H* ABG pO2 84 ABG HCO3 25 ABG Total CO2 25 ABG O2 Saturation 96 ABG Base Excess -2 VBG pH 7.23 L VBG pCO2 60 H VBG pO2 69 VBG HCO3 25 VBG Total CO2 25 VBG O2 Saturation 92 VBG Base Excess -3 L Oxygen Liter Flow FiO2 30 Sodium Potassium Chloride Carbon Dioxide Anion Gap BUN Creatinine Estimated GFR/1.73 m2 Glucose Calcium Magnesium C-Reactive Protein [facility] Occult Bld Clinic Cancelled Path Cons Comment 10/26/21 10/26/21 10/27/21 20:00 21:40 06:20 WBC RBC Hgb Hct MCV MCH MCHC RDW Plt Count MPV Immature Gran % Neutrophils % Band Neutrophils % Lymphocytes % Monocytes % Eosinophils % Basophils % Metamyelocytes % Myelocytes % Nucleated RBC % Absolute Neutrophils Absolute Lymphocytes Absolute Monocytes Absolute Eosinophils Absolute Basophils RBC Morphology Anisocytosis ABG Sample Site Cancelled ABG pH Cancelled ABG pCO2 Cancelled ABG pO2 Cancelled ABG HCO3 Cancelled ABG Total CO2 Cancelled ABG O2 Saturation Cancelled ABG Base Excess Cancelled VBG pH 7.27 L 7.30 L VBG pCO2 58 H 55 H VBG pO2 41 44 VBG HCO3 26 27 VBG Total CO2 26 26 VBG O2 Saturation 72 77 VBG Base Excess -1 0 Oxygen Liter Flow Cancelled FiO2 Cancelled Sodium Potassium Chloride Carbon Dioxide Anion Gap BUN Creatinine Estimated GFR/1.73 m2 Glucose Calcium Magnesium C-Reactive Protein [facility] Occult Bld Clinic Path Cons Comment 10/27/21 10/27/21 10/27/21 06:20 06:20 08:00 WBC 27.81 H* RBC 2.93 L Hgb 8.0 L Hct 28.6 L MCV 98 H D MCH 27.3 MCHC 28.0 L RDW 23.1 H Plt Count 643 H MPV 9.9 Immature Gran % 0.0 Neutrophils % 84.0 Band Neutrophils % 2 Lymphocytes % 7.0 Monocytes % 0.0 Eosinophils % 1.0 Basophils % 0.0 Metamyelocytes % 4 Myelocytes % 2 Nucleated RBC % 1.0 H Absolute Neutrophils 23.92 H Absolute Lymphocytes 1.95 Absolute Monocytes 0.00 L Absolute Eosinophils 0.28 Absolute Basophils 0.00 RBC Morphology See Below Anisocytosis 1+ ABG Sample Site ABG pH ABG pCO2 ABG pO2 ABG HCO3 ABG Total CO2 ABG O2 Saturation ABG Base Excess VBG pH 7.29 L VBG pCO2 54 H VBG pO2 52 VBG HCO3 26 VBG Total CO2 25 VBG O2 Saturation 86 VBG Base Excess -1 Oxygen Liter Flow FiO2 Sodium 150 H Potassium 3.9 Chloride 113 H Carbon Dioxide 28.1 Anion Gap 8.9 BUN 84 H* Creatinine 0.9 Estimated GFR/1.73 m2 >= 60.00 Glucose 78 Calcium 8.7 Magnesium 2.2 C-Reactive Protein 6.53 H Stl Occult Bld Clinic Path Cons Comment Objective Narrative Objective Narrative: CTA abdomen/pelvis/LEs: 1. Normal CT Angiogram of the Abdomen, Pelvis and Lower Extremities.? Minimal atherosclerosis is present. 2. Postsurgical changes in the pelvis and both lower extremities as described. 3. Edema seen in the left lower extremity but no focal fluid collection is seen to suggest an abscess.? CXR: No definite change in appearance of the lungs compared to 10/24/2021. EKG: Borderline concentric left ventricular hypertrophy.? Estimated ejection fraction is 55 to 60%.? No wall motion abnormalities are appreciated The right ventricle was not well visualized.? The right atrium was not well visualized Left atrium appears normal in size The aortic valve is mildly sclerotic and probably trileaflet.? There is no aortic stenosis or regurgitation Thickened mitral leaflets with trace mitral regurgitation Normal tricuspid valve with trace regurgitation.? Right ventricular systolic pressure could not be estimated Multi-Disciplinary Checklist Lines/Tubes CENTRAL LINE: yes, Central Line Day#: 7 ARTERIAL LINE: no MOFFETT: yes, [place] Day#: 3 ENDOTRACHEAL TUBE: no ICU Maintenance GLUCOSE 140-180mg/dL: no, Reason/Intervention: NPO; long acting insulin on hold; D5 being given NUTRITION AT GOAL: no, Reason/Intervention: NPO due to mental status PRESSURE ULCER: no RESTRAINTS: no ANTIBIOTICS(if yes, consider Stewardship): Yes Social Issues FAMILY UPDATED: yes PT/OT: no, Reason/Intervention: not appropriate due to mental status GOALS/DISPOSITION/SOFTBALL COACH: yes CODE STATUS: Full Prophylaxis DVT PROPHYLAXIS: yes GI PROPHYLAXIS: yes, Indication: on steroids; NPO
--- NOTE | 2021-10-27 10:23 | CMPROGNOTE_ITS ---
- If Service Date Differs Date of service: 10/27/21 Time of Service: 10:23 Care Management Progress Note S/O: Hetal emergent transferred to the ICU yesterday after developing acute hypercapnic respiratory failure in the setting of opiod therapy and underlying untreated MADISON, per MD. She continues to be closely monitored and treated which includes diuresis, BIPAP, and another dose of narcan. Opioids and lyrica continue to be held at this time. CM will continue to follow. A:Leslie is a 56 year old woman admitted on 10/21/21 with a LLE infection. P: Discharge not anticipated within the 48 hours; the plan remains for her to return to the [facility] unless transfer to a tertiary care center becomes necessary. Leslie will return to [facility] when medically cleared by provider with [facility] for wound care and wound care orders. If an extended course of IV ABX is required she will likely need to transition to SB-1 as [facility] would not be able to accommodate the administration of IV medications. Leslie will follow up with the facility provider and plan of care and transport via [facility]. CM will support Leslie and assess for ongoing discharge needs.
[2021-10-27 10:35] LABS: Lab Add On Test DONE
[2021-10-27 10:57] LABS: NT-proBNP 1572 pg/mL (<300)
[2021-10-27] MEDS: Furosemide 40 MG/4 ML VIAL IVP ×2 (11:10→16:30)
--- NOTE | 2021-10-27 12:02 | PUCC_ITS ---
General Date of Service Date of service: 10/27/21 Time of Service: 08:30 Reason for Admission to ICU: Hypoxic and Hypercapnic respiratory failure Assessment and Plan Assessment and plan (1) Acute hypercapnic respiratory failure: Status: Acute (2) Non-healing wound of lower extremity: Status: Acute (3) Leukocytosis (leucocytosis): Status: Acute (4) Anemia: Status: Acute (5) Open wound of left lower leg: Status: Acute (6) Hypernatremia: Status: Acute (7) Elevated BUN: Status: Acute (8) Encephalopathy: Status: Acute (9) Witnessed apneic spells: Status: Acute (10) Polymicrobial sepsis: Status: Acute (11) Still's disease of adult: Assessment and plan: This is a medically complex 56 yo female admitted to [facility] initially on 10/20/21 for an open leg wound requiring debridement found to have a polymicrobial infection. She is currently on Daptomycin and Imipenem for this. She required ICU transfer for hypercapnic respiratory failure requiring BiPAP. She has MADISON and is noncompliant with her CPAP at home and she may have some degree of OHS, but I doubt this is contibuting to her acute decompensation. This is evidenced by the fact that her bicarb really has remained stable throughout her stay here (around 30), indicating some degree of chronic hypercapnea but not clear trend of progressive acute hypercapnea. There was concern for narcotic also being involved, which is certainly possible, and likely a more likely contributor, however she has not had a significant clinical response to Narcan. Additionally, clinically her encephalopathy is more consistent with a tox-metabolic encephalopathy resulting in apneic events as opposed to oversedation and hypoventilation. We maciel continue with BiPAP with a back up rate when she sleeps while we continue our work up. Recommendations Pulmonary: Apnea resulting in hypercapnic respiratory failure - continue BiPAP with back up rate - can decrease driving pressure 18/10 - neuro work up as below - i think the main issue is the encephalopathy and not necessarily a primary p ulmonary issue at this point Cardiac: no acute concerns Renal: Elevated BUN - unclear reason - secondary to drug effects? - urine urea Hypernatremia - on D5W I&O: Intake & Output 10/24/21 10/25/21 10/26/21 10/27/21 23:59 23:59 23:59 23:59 Intake Total 919 / 919 424.5 / 424.5 1950 / 1950 710 / 710 Output Total 1800 / 1800 1300 / 1300 1405 / 1405 600 / 600 Balance -881 / -881 -875.5 / -875.5 545 / 545 110 / 110 Weight 110.3 kg Daily Fluid Goal:: even GI Nutrition: OK for diet Date of Last Bowel Movement: 10/26/21 Infectious Disease: Poly mibrobial sepsis from leg wound - on Dapto and Imipenem - surgery managing wound Hematologic: Leukocytosis - sepsis Neurologic: Encephalopathy - likely multi-factorial tox-metabolic - recommend head CT - ammonia ordered for tomorrow - recommend reducing prednisone as low as possible safely - try to 30mg tomorrow? - treat pain as appropriate - treat electrolyte abnormalities - maintain adequate glucose levels Endocrine: Diabetes - treat hypoglycemia - as occurred today Lines: midline kaur Prophylaxis: Lovenox Prilosec Code Status: Resuscitation Status Full Code Subjective Critical and life-threatening events over the past 24 hours: This is a medically complex 56 yo female who was admitted on 10/20/21 for an open leg wound. A detailed summary of her medical history and course thus far can be found in prior documentation from this admission. She was admitted to the ICU for hypercapnic respiratory failure necessitating BiPAP. This was thought to be due to a combination of OHS and narcotics. She has been given Narcan with minimal improvement. When she is awake she tolerates room air appropriately, however when she falls asleep she experiences apnic events that results in significant desaturations. She has polymicrobial growth in her leg wound requiring broad spectrum antibiotics. She also has had very elevated BUN and has also developed hypernatremia. She has adult Still's disease and is on chronic steroids, which were increased out of concern for a flare. This morning she answers my questions but easily falls asleep and her answers are not always appropriate. Exam Narrative Exam Narrative: Gen: NAD, normal respiratory effort, centrally obese HENT: PERRL Chest: No respiratory distress, normal appearance of chest, clear to auscultation bilaterally, no crackles or wheezes, normal inspiratory effort Heart: regular rate and rhythym, no murmurs, rubs or gallops Abdomen: Non-distended, soft, non tender Extremities: No clubbing, pedal edema. Left leg wrapped and in brace. Neuro: AAOx2 , non focal Psych: cooperative, appropriate mental affect Most Recent VS/Results Last Vital Signs Temp 36.5 C 10/27/21 08:15 Pulse 78 10/27/21 11:01 Resp 15 10/27/21 11:01 BP 100/46 L 10/27/21 11:01 Pulse Ox 97 10/27/21 11:01 Laboratory Results - last 24 hr 10/26/21 10/26/21 10/26/21 12:00 12:45 15:30 WBC RBC Hgb Hct MCV MCH MCHC RDW Plt Count MPV Immature Gran % Neutrophils % Band Neutrophils % Lymphocytes % Monocytes % Eosinophils % Basophils % Metamyelocytes % Myelocytes % Nucleated RBC % Absolute Neutrophils Absolute Lymphocytes Absolute Monocytes Absolute Eosinophils Absolute Basophils RBC Morphology Anisocytosis ABG Sample Site Cancelled ABG pH Cancelled ABG pCO2 Cancelled ABG pO2 Cancelled ABG HCO3 Cancelled ABG Total CO2 Cancelled ABG O2 Saturation Cancelled ABG Base Excess Cancelled VBG pH 7.23 L VBG pCO2 60 H VBG pO2 69 VBG HCO3 25 VBG Total CO2 25 VBG O2 Saturation 92 VBG Base Excess -3 L Oxygen Liter Flow Cancelled FiO2 Cancelled Sodium Potassium Chloride Carbon Dioxide Anion Gap BUN Creatinine Estimated GFR/1.73 m2 Glucose Calcium Magnesium C-Reactive Protein NT-Pro-B Natriuret Pep Stl Occult Bld Clinic Cancelled Add-On Test Request 10/26/21 10/26/21 10/26/21 18:50 20:00 21:40 WBC RBC Hgb Hct MCV MCH MCHC RDW Plt Count MPV Immature Gran % Neutrophils % Band Neutrophils % Lymphocytes % Monocytes % Eosinophils % Basophils % Metamyelocytes % Myelocytes % Nucleated RBC % Absolute Neutrophils Absolute Lymphocytes Absolute Monocytes Absolute Eosinophils Absolute Basophils RBC Morphology Anisocytosis ABG Sample Site Left Brachial Cancelled ABG pH 7.22 L Cancelled ABG pCO2 61 H* Cancelled ABG pO2 84 Cancelled ABG HCO3 25 Cancelled ABG Total CO2 25 Cancelled ABG O2 Saturation 96 Cancelled ABG Base Excess -2 Cancelled VBG pH 7.27 L VBG pCO2 58 H VBG pO2 41 VBG HCO3 26 VBG Total CO2 26 VBG O2 Saturation 72 VBG Base Excess -1 Oxygen Liter Flow Cancelled FiO2 30 Cancelled Sodium Potassium Chloride Carbon Dioxide Anion Gap BUN Creatinine Estimated GFR/1.73 m2 Glucose Calcium Magnesium C-Reactive Protein NT-Pro-B Natriuret Pep Stl Occult Bld Clinic Add-On Test Request 10/27/21 10/27/21 10/27/21 06:20 06:20 06:20 WBC 27.81 H* RBC 2.93 L Hgb 8.0 L Hct 28.6 L MCV 98 H D MCH 27.3 MCHC 28.0 L RDW 23.1 H Plt Count 643 H MPV 9.9 Immature Gran % 0.0 Neutrophils % 84.0 Band Neutrophils % 2 Lymphocytes % 7.0 Monocytes % 0.0 Eosinophils % 1.0 Basophils % 0.0 Metamyelocytes % 4 Myelocytes % 2 Nucleated RBC % 1.0 H Absolute Neutrophils 23.92 H Absolute Lymphocytes 1.95 Absolute Monocytes 0.00 L Absolute Eosinophils 0.28 Absolute Basophils 0.00 RBC Morphology See Below Anisocytosis 1+ ABG Sample Site ABG pH ABG pCO2 ABG pO2 ABG HCO3 ABG Total CO2 ABG O2 Saturation ABG Base Excess VBG pH 7.30 L VBG pCO2 55 H VBG pO2 44 VBG HCO3 27 VBG Total CO2 26 VBG O2 Saturation 77 VBG Base Excess 0 Oxygen Liter Flow FiO2 Sodium 150 H Potassium 3.9 Chloride 113 H Carbon Dioxide 28.1 Anion Gap 8.9 BUN 84 H* Creatinine 0.9 Estimated GFR/1.73 m2 >= 60.00 Glucose 78 Calcium 8.7 Magnesium 2.2 C-Reactive Protein 6.53 H NT-Pro-B Natriuret [place] Stl Occult Bld Clinic Add-On Test Request 10/27/21 10/27/21 10/27/21 08:00 08:00 08:00 WBC RBC Hgb Hct MCV MCH MCHC RDW Plt Count MPV Immature Gran % Neutrophils % Band Neutrophils % Lymphocytes % Monocytes % Eosinophils % Basophils % Metamyelocytes % Myelocytes % Nucleated RBC % Absolute Neutrophils Absolute Lymphocytes Absolute Monocytes Absolute Eosinophils Absolute Basophils RBC Morphology Anisocytosis ABG Sample Site ABG pH ABG pCO2 ABG pO2 ABG HCO3 ABG Total CO2 ABG O2 Saturation ABG Base Excess VBG pH 7.29 L VBG pCO2 54 H VBG pO2 52 VBG HCO3 26 VBG Total CO2 25 VBG O2 Saturation 86 VBG Base Excess -1 Oxygen Liter Flow FiO2 Sodium Potassium Chloride Carbon Dioxide Anion Gap BUN Creatinine Estimated GFR/1.73 m2 Glucose Calcium Magnesium C-Reactive Protein NT-Pro-B Natriuret Pep 1572 H Stl Occult Bld Clinic Add-On Test Request DONE Review of Systems Unobtainable due to mental status Time spent with patient Time spent in Critical Care: 45 Time spent in Critical care included: Chart review, Documenting critically ill care, Time at immediate bedside and Discussing critically ill care with other medical staff
[2021-10-27 12:42] LABS: Anion Gap 8.6 mmol/L (3-11); CO2 27.4 mmol/L (21.0-32.0); CREATININE 0.9 mg/dL (0.55-1.02); Calcium 8.4 mg/dL (8.5-10.1); Chloride 113 mmol/L (98-107); Glucose 58 mg/dL (74-106); Potassium 3.6 mmol/L (3.5-5.1); Sodium 149 mmol/L (136-145)
[2021-10-27 12:44] LABS: BUN 84 mg/dL (7-18)
[2021-10-27] MEDS: Nystatin POWDER 60 GM JAR TP ×2 (14:37→20:40)
--- NOTE | 2021-10-27 15:16 | W.PM.PROGNOT ---
Date of Service Date of service: 10/27/21 Time of Service: 11:30 Assessment and Plan Assessment and plan (1) Non-healing wound of lower extremity: Status: Acute Assessment and plan: -promogran and abd's. change when soiled -cont nutritional support -PT -abx adjusted per ANDREW -WBC count improving on antibiotics. CRP decreasing -poor wound healing. consider CT angio of vasculature- don't know if this would be of value w/ all her orthopedic harwared. 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 She does wake up when I talk to her. She does have her CPAP on although she would like to remove it. I keep telling her to keep it on as she is quite somnolent and her saturations dropped easily. She complains of right lower extremity pain which is most likely from her avascular necrosis of the right hip. Her left lower extremity dressing is intact. Her white blood cell count is slowly decreasing as is her CRP. Exam Const General: comfortable and other (somnolent) Resp Effort & Inspection: normal respiratory effort Auscultation: clear to auscultation bilaterally Cardio Rate: regular rate Rhythm: regular rhythm Extrem Other: LLE extremity- dressing is intact. Objective Last Vital Signs Temp 97.7 F 10/27/21 12:00 Pulse 81 10/27/21 14:01 Resp 17 10/27/21 14:42 BP 116/54 L 10/27/21 14:01 Pulse Ox 96 10/27/21 14:42 Laboratory Results - last 24 hr 10/26/21 10/26/21 10/26/21 12:00 15:30 18:50 WBC RBC Hgb Hct MCV MCH MCHC RDW Plt Count MPV Immature Gran % Neutrophils % Band Neutrophils % Lymphocytes % Monocytes % Eosinophils % Basophils % Metamyelocytes % Myelocytes % Nucleated RBC % Absolute Neutrophils Absolute Lymphocytes Absolute Monocytes Absolute Eosinophils Absolute Basophils RBC Morphology Anisocytosis ABG Sample Site Cancelled Left Brachial ABG pH Cancelled 7.22 L ABG pCO2 Cancelled 61 H* ABG pO2 Cancelled 84 ABG HCO3 Cancelled 25 ABG Total CO2 Cancelled 25 ABG O2 Saturation Cancelled 96 ABG Base Excess Cancelled -2 VBG pH 7.23 L VBG pCO2 60 H VBG pO2 69 VBG HCO3 25 VBG Total CO2 25 VBG O2 Saturation 92 VBG Base Excess -3 L Oxygen Liter Flow Cancelled FiO2 Cancelled 30 Sodium Potassium Chloride Carbon Dioxide Anion Gap BUN Creatinine Estimated GFR/1.73 m2 Glucose Calcium Magnesium C-Reactive Protein NT-Pro-B Natriuret Pep Add-On Test Request 10/26/21 10/26/21 10/27/21 20:00 21:40 06:20 WBC RBC Hgb Hct MCV MCH MCHC RDW Plt Count MPV Immature Gran % Neutrophils % Band Neutrophils % Lymphocytes % Monocytes % Eosinophils % Basophils % Metamyelocytes % Myelocytes % Nucleated RBC % Absolute Neutrophils Absolute Lymphocytes Absolute Monocytes Absolute Eosinophils Absolute Basophils RBC Morphology Anisocytosis ABG Sample Site Cancelled ABG pH Cancelled ABG pCO2 Cancelled ABG pO2 Cancelled ABG HCO3 Cancelled ABG Total CO2 Cancelled ABG O2 Saturation Cancelled ABG Base Excess Cancelled VBG pH 7.27 L 7.30 L VBG pCO2 58 H 55 H VBG pO2 41 44 VBG HCO3 26 27 VBG Total CO2 26 26 VBG O2 Saturation 72 77 VBG Base Excess -1 0 Oxygen Liter Flow Cancelled FiO2 Cancelled Sodium Potassium Chloride Carbon Dioxide Anion Gap BUN Creatinine Estimated GFR/1.73 m2 Glucose Calcium Magnesium C-Reactive Protein NT-Pro-B Natriuret Pep Add-On Test Request 10/27/21 10/27/21 10/27/21 06:20 06:20 08:00 WBC 27.81 H* RBC 2.93 L Hgb 8.0 L Hct 28.6 L MCV 98 H D MCH 27.3 MCHC 28.0 L RDW 23.1 H Plt Count 643 H MPV 9.9 Immature Gran % 0.0 Neutrophils % 84.0 Band Neutrophils % 2 Lymphocytes % 7.0 Monocytes % 0.0 Eosinophils % 1.0 Basophils % 0.0 Metamyelocytes % 4 Myelocytes % 2 Nucleated RBC % 1.0 H Absolute Neutrophils 23.92 H Absolute Lymphocytes 1.95 Absolute Monocytes 0.00 L Absolute Eosinophils 0.28 Absolute Basophils 0.00 RBC Morphology See Below Anisocytosis 1+ ABG Sample Site ABG pH ABG pCO2 ABG pO2 ABG HCO3 ABG Total CO2 ABG O2 Saturation ABG Base Excess VBG pH 7.29 L VBG pCO2 54 H VBG pO2 52 VBG HCO3 26 VBG Total CO2 25 VBG O2 Saturation 86 VBG Base Excess -1 Oxygen Liter Flow FiO2 Sodium 150 H Potassium 3.9 Chloride 113 H Carbon Dioxide 28.1 Anion Gap 8.9 BUN 84 H* Creatinine 0.9 Estimated GFR/1.73 m2 >= 60.00 Glucose 78 Calcium 8.7 Magnesium 2.2 C-Reactive Protein 6.53 H NT-Pro-B Natriuret Pep Add-On Test Request 10/27/21 10/27/21 10/27/21 08:00 08:00 12:20 WBC RBC Hgb Hct MCV MCH MCHC RDW Plt Count MPV Immature Gran % Neutrophils % Band Neutrophils % Lymphocytes % Monocytes % Eosinophils % Basophils % Metamyelocytes % Myelocytes % Nucleated RBC % Absolute Neutrophils Absolute Lymphocytes Absolute Monocytes Absolute Eosinophils Absolute Basophils RBC Morphology Anisocytosis ABG Sample Site ABG pH ABG pCO2 ABG pO2 ABG HCO3 ABG Total CO2 ABG O2 Saturation ABG Base Excess VBG pH VBG pCO2 VBG pO2 VBG HCO3 VBG Total CO2 VBG O2 Saturation VBG Base Excess Oxygen Liter Flow FiO2 Sodium 149 H Potassium 3.6 Chloride 113 H Carbon Dioxide 27.4 Anion Gap 8.6 BUN 84 H* Creatinine 0.9 Estimated GFR/1.73 m2 >= 60.00 Glucose 58 L Calcium 8.4 L Magnesium C-Reactive Protein NT-Pro-B Natriuret Pep 1572 H Add-On Test Request DONE
[2021-10-27] MEDS: Insulin Aspart 300 UNITS/3 ML PEN SC ×2 (16:56→20:46)
--- NOTE | 2021-10-27 18:19 | DI.VRAD_ITS ---
PROCEDURE INFORMATION: Exam: CT Head Without Contrast Exam date and time: 10/27/2021 6:03 PM Age: 56 years old Clinical indication: Other: Encephalopathy TECHNIQUE: Imaging protocol: Computed tomography of the head without contrast. Radiation optimization: All CT scans at this facility use at least one of these dose optimization techniques: automated exposure control; mA and/or kV adjustment per patient size (includes targeted exams where dose is matched to clinical indication); or iterative reconstruction. COMPARISON: No relevant prior studies available. FINDINGS: Brain: No shift, mass, mass effect, or acute hemorrhage. Redemonstrated stable right frontal lobe small cortical infarction around axial image 39. No acute territorial infarction. Mild chronic small vessel lucency in the bifrontal forceps and stephens white matter appears stable. Cerebral ventricles: No unusual ventriculomegaly for age. Pituitary gland and sella: No obvious mass or expansile change. Paranasal sinuses: Visualized sinuses are unremarkable. No fluid levels. Mastoid air cells: Visualized mastoid air cells are well aerated. Orbital cavities: Unremarkable by this method. Bones/joints: Unremarkable. No acute fracture. No destructive lesion. Soft tissues: Unremarkable. Vasculature: Bilateral carotid siphon calcification, bilateral vertebral arterial calcification. IMPRESSION: No acute intracranial abnormality. 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 Dictated and Authenticated by: Reese Sauceda MD. Ordering:PEDRO Harman MD
[2021-10-27] MEDS: Enoxaparin 40 MG/0.4 ML SYR SC (18:49)
[2021-10-27] MEDS: Acetaminophen 325 MG TAB 650 MG PO (22:34)
[2021-10-28] VITALS (42 sets, daily range): BP systolic 116–155; BP diastolic 55–127; PULSE 85–112; RESP 7–23; TEMP 36.1–36.4; O2SAT 92–240
[2021-10-28] MEDS: IMIPENEM/CILASTATIN 1,000 MG in Normal Saline 250 ML 250 MG IVPB ×2 (04:24→10:41)
[2021-10-28 05:58] LABS: BE (Venous) -4 mmol/L (-2-3); HCO3 (Venous) 23 mmol/L (23-28); O2 Sat (Venous) 84 %; TCO2 (Venous) 23 mmol/L (24-29); pCO2 (Venous) 53 mmHg (41-51); pH (Venous) 7.25 (7.31-7.41); pO2 (Venous) 52 mmHg
[2021-10-28 06:03] LABS: Abs Immature Grans 0.99 10^3/uL (0.0-0.06); HCT 29.1 % (36.0-46.0); HGB 8.3 g/dL (11.2-15.7); MCH 27.8 pg (27.0-33.0); MCHC 28.5 % (32.0-36.0); MCV 97 fL (80-95); MPV 9.8 fL (8.0-11.0); Platelet Count 622 10^3/uL (130-400); RBC 2.99 10^6/uL (3.93-5.22); RDW 23.9 % (11.7-14.6); RDW-SD 79.6 fL
[2021-10-28 06:21] LABS: ALT 26 U/L (14-59); AST 13 U/L (15-37); Albumin 2.2 g/dL (3.4-5.0); Alkaline Phosphatase 128 U/L (46-116); Anion Gap 9.9 mmol/L (3-11); Bilirubin, Direct 0.1 mg/dL (0.0-0.2); Bilirubin, Total 0.3 mg/dL (0.2-1.0); C-Reactive Protein 6.89 mg/dL (0.0-0.3); CO2 26.1 mmol/L (21.0-32.0); CREATININE 1.3 mg/dL (0.55-1.02); Calcium 8.8 mg/dL (8.5-10.1); Chloride 110 mmol/L (98-107); Estimated GFR 42.22 (mL/min/1.73m2); Glucose 170 mg/dL (74-106); Magnesium 2.1 mg/dL (1.8-2.4); Potassium 3.8 mmol/L (3.5-5.1); Sodium 146 mmol/L (136-145); Total Protein 6.5 g/dL (6.4-8.2)
[2021-10-28 06:23] LABS: Ammonia 29 umol/L (11-32)
[2021-10-28 06:25] LABS: BUN 90 mg/dL (7-18)
[2021-10-28] MEDS: Omeprazole 20 MG CAPCR 40 MG PO (06:32)
[2021-10-28 06:33] LABS: WBC 25.58 10^3/uL (4.4-10.8)
[2021-10-28 07:10] LABS: Absolute Neutrophil Count 24.05 10^3/uL (1.2-6.7)
[2021-10-28 07:11] LABS: Absolute Lymphocyte Count 1.02 10^3/uL (1.2-3.4); Absolute Monocyte Count 0.26 10^3/uL (0.1-0.8); Diff Comment Manual Differential; Metamyelocytes % 1
[2021-10-28 07:12] LABS: Anisocytosis 1+; Polychromasia Present
[2021-10-28] MEDS: Lactated Ringers 250 ML IV (09:00)
[2021-10-28] MEDS: Ondansetron 4 MG/2 ML VIAL IVP (09:00)
[2021-10-28] MEDS: Normal Saline Flush 10 ML SYR IVP ×3 (09:00→20:05)
--- NOTE | 2021-10-28 09:37 | NUR.NOTE ---
PA in 222 for wound care at this time. Nursing Note:
--- NOTE | 2021-10-28 10:15 | TELEFU_ITS ---
Date of service: 10/28/21 Time of Service: 10:15 Nutrition Note NOTE: Noted 7 lbs weight loss in last week, poorly healing wound with polymicrobial sepsis. Following diabetic diet with 100% intake, supplemented with 45 g protein, 1000 mg Vit C, 220 mg Zinc sulfate and MVI. In view of weight loss, will increase caloric and protein content in meals to meet [id number] kcal, 100- 120 g protein. Will continue to follow. Time Spent in Nutritional Counseling and Treatment: 0
--- NOTE | 2021-10-28 10:24 | W.PM.PROGNOT ---
Date of Service Date of service: 10/28/21 Time of Service: 10:24 Assessment and Plan Assessment and plan (1) Non-healing wound of lower extremity: Status: Acute Assessment and plan: -Wound was cleansed. ELIZABETH dressing was applied. -cont nutritional support -PT -abx adjusted per ANDREW -WBC count continues to improve on antibiotics. CRP decreasing Appreciate Hospitalists assistance with patient multiple medical issues Addendum by Moody Darling: The wound looks clean today, but there was not much granulation tissue. There is no surrounding erythema. Elizabeth dressing has been applied. I think we can continue with negative pressure wound therapy for now. Generally, I do not think this wound is an active source of infection. Hopefully, with ongoing treatment, she will develop some granulation tissue, and hopefully a suitable bit for skin grafting. For now, we will continue with local wound treatment, and hopefully her other comorbidities will improve with treatment. (2) Steroid-induced hyperglycemia: Status: Acute (3) MRSA nasal colonization: Status: Acute (4) Leukocytosis (leucocytosis): Status: Acute (5) Anemia: Status: Acute (6) Open wound of left lower leg: Status: Acute Subjective Subjective Interval history since last seen: Patient reports that her LE's are sore and increase in discomfort with palpation. Exam Const General: cooperative and comfortable Orientation: alert and oriented x3 Resp Effort & Inspection: normal respiratory effort, no audible wheezes and no cough Skin Other: Wound was cleansed with anasept. Scant drainage noted on dressing. No erythema, swelling or induration. ELIZABETH dressing was applied. Objective Last Vital Signs Temp 36.3 C L 10/28/21 08:31 Pulse 108 H 10/28/21 08:01 Resp 17 10/28/21 08:01 BP 137/72 10/28/21 08:01 Pulse Ox 94 10/28/21 08:31 Laboratory Results - last 24 hr 10/27/21 10/27/21 10/27/21 08:00 08:00 12:20 WBC RBC Hgb Hct MCV MCH MCHC RDW Plt Count MPV Immature Gran % Neutrophils % Lymphocytes % Monocytes % Eosinophils % Basophils % Metamyelocytes % Nucleated RBC % Absolute Neutrophils Absolute Lymphocytes Absolute Monocytes Absolute Eosinophils Absolute Basophils RBC Morphology Polychromasia Anisocytosis VBG pH VBG pCO2 VBG pO2 VBG HCO3 VBG Total CO2 VBG O2 Saturation VBG Base Excess Sodium 149 H Potassium 3.6 Chloride 113 H Carbon Dioxide 27.4 Anion Gap 8.6 BUN 84 H* Creatinine 0.9 Estimated GFR/1.73 m2 >= 60.00 Glucose 58 L Calcium 8.4 L Magnesium Total Bilirubin Conjugated Bilirubin AST ALT Alkaline Phosphatase Ammonia C-Reactive Protein NT-Pro-B Natriuret Pep 1572 H Total Protein Albumin Add-On Test Request DONE 10/28/21 10/28/21 10/28/21 05:45 05:45 05:45 WBC 25.58 H* RBC 2.99 L Hgb 8.3 L Hct 29.1 L MCV 97 H MCH 27.8 MCHC 28.5 L RDW 23.9 H Plt Count 622 H MPV 9.8 Immature Gran % 0.0 Neutrophils % 94.0 Lymphocytes % 4.0 Monocytes % 1.0 Eosinophils % 0.0 Basophils % 0.0 Metamyelocytes % 1 Nucleated RBC % 0.0 Absolute Neutrophils 24.05 H Absolute Lymphocytes 1.02 L Absolute Monocytes 0.26 Absolute Eosinophils 0.00 Absolute Basophils 0.00 RBC Morphology See Below Polychromasia Present Anisocytosis 1+ VBG pH 7.25 L VBG pCO2 53 H VBG pO2 52 VBG HCO3 23 VBG Total CO2 23 L VBG O2 Saturation 84 VBG Base Excess -4 L Sodium 146 H Potassium 3.8 Chloride 110 H Carbon Dioxide 26.1 Anion Gap 9.9 BUN 90 H* Creatinine 1.3 H Estimated GFR/1.73 m2 42.22 Glucose 170 H Calcium 8.8 Magnesium 2.1 Total Bilirubin 0.3 Conjugated Bilirubin 0.1 AST 13 L ALT 26 Alkaline Phosphatase 128 H Ammonia C-Reactive Protein 6.89 H NT-Pro-B Natriuret Pep Total Protein 6.5 Albumin 2.2 L Add-On Test Request 10/28/21 05:45 WBC RBC Hgb Hct MCV MCH MCHC RDW Plt Count MPV Immature Gran % Neutrophils % Lymphocytes % Monocytes % Eosinophils % Basophils % Metamyelocytes % Nucleated RBC % Absolute Neutrophils Absolute Lymphocytes Absolute Monocytes Absolute Eosinophils Absolute Basophils RBC Morphology Polychromasia Anisocytosis VBG pH VBG pCO2 VBG pO2 VBG HCO3 VBG Total CO2 VBG O2 Saturation VBG Base Excess Sodium Potassium Chloride Carbon Dioxide Anion Gap BUN Creatinine Estimated GFR/1.73 m2 Glucose Calcium Magnesium Total Bilirubin Conjugated Bilirubin AST ALT Alkaline Phosphatase Ammonia 29 C-Reactive Protein NT-Pro-B Natriuret Pep Total Protein Albumin Add-On Test Request
[2021-10-28] MEDS: amLODIPine 10 MG TAB PO (10:36)
[2021-10-28] MEDS: predniSONE 20 MG TAB 40 MG PO (10:37)
[2021-10-28] MEDS: Venlafaxine 75 MG CAPCR PO ×3 (10:37→19:56)
[2021-10-28] MEDS: Loratidine 10 MG TAB PO (10:37)
[2021-10-28] MEDS: Metoprolol CR 100 MG TABCR PO (10:39)
--- NOTE | 2021-10-28 10:39 | PGE_ITS ---
Date of Service Date of service: 10/28/21 Time of Service: 10:39 Assessment and Plan Assessment and plan (1) Acute hypercapnic respiratory failure: Status: Acute Assessment and plan: In setting of opioid therapy, possible component of fluid overload, underlying untreated MADISON, multifactorial encephalopathy. Clinically better and refusing BiPAP. Full code. Palliative care consulted. Continue to hold all opioiids and lyrica. (2) CO2 narcosis: Status: Acute Assessment and plan: As above. (3) Toxic metabolic encephalopathy: Status: Acute Assessment and plan: As above, likely multifactorial. Improving. Hold sedating medications. Monitor mental and respiratory status. (4) Elevated BUN: Status: Acute Assessment and plan: Could be due to steroids, upper GI bleeding (no proof), prerenal vs intrinsic renal issue. Will discuss with [facility] [place]. Checking FEUrea. Received IVF bolus this am with improvement in UOP. (5) Open wound of left lower leg: Status: Acute Assessment and plan: POD #9 s/p incision/debridement and removal of clots LLE infected hematoma/wound; Wound cx w/ Pseudomonas, VRE, ESBL Klebsiella. VRE is sensitive to daptomycin. Continue daptomycin, imipenem/cilastin. Check CPK given a very mild bump in Cr and elevation of BUN. No evidence of abscess CTA. Cnsider ID consult. WBC better. Awaiting negative pressure dressing, per surgery. (6) Myoclonus: Status: Resolved Assessment and plan: Potential culprits: CO2 retention, meropenem, lyrica, encephalopathy. As above (7) Still's disease of adult: Assessment and plan: Per patient, prior flares of Still's disease had resulted in leucocytosis. Continue prednisone to 40 mg daily. Normally on prednisone 20 mg PO daily. (8) Steroid-induced hyperglycemia: Status: Acute Assessment and plan: Patient is NPO and long acting insulin is on hold as BGs are borderline low.BGs seem to have recovered. (9) Avascular necrosis of bone of left hip: Assessment and plan: Holding opioids. prn tylenol only. Orthopedics consulted. Is followed by ortho at [facility]. (10) [place] disease: Assessment and plan: On chronic prednisone 20 mg daily, followed by rheumatology. Currently getting 40 mg PO daily due to a flare of Still's as well as as a stress dose. (11) Hypertension: Assessment and plan: Holding antihypertensives today due to borderline BPs. (12) MADISON (obstructive sleep apnea): Assessment and plan: Refuses CPAP/BiPAP at this time, Continue prn O2. Palliative care consulted. (13) Chronic anticoagulation: Status: Acute Assessment and plan: H/o DVT/PE. Was on anticoagulation at the time of LLE injury. Continue lovenox 40 mg SC daily. (14) Anemia: Status: Acute Assessment and plan: Due to acute blood loss from left leg hematoma in addition to blood draws. Hgb stable. Received venofer. Continue to monitor H/H. Hospitalist will continue to follow. Total Critical Care Time [address] Reid Subjective Subjective Interval history since last seen: Ms Schaffer states that she thinks she is feeling a little bit better this morning. She denies dizziness, chest pain, she does not feel as short of breath at this time, denies n/v. Took biPAP off last night and has been on 2-4L of O2 by NC saturating in the 90s. She feels more awake. Nursing noted low UOP this morning. This seems to have responded to IVF bolus of LR 250 cc. Patient is in agreement with a palliative care consult. Exam Narrative Exam Narrative: General: More alert Obese female who is A&Ox3, no myoclonic jerks, is faster to respond, looks tired but is closer to her baseline mental status. Cushinoid features. HEENT: EOMI, MMM, pinpoint pupils Heart: RRR, no m/r/g Lungs: Diminished breath sounds B Abdomen: soft, nontender, nondistended Extremities: B feet/heels in heel protectors, LLE dressed Objective Last Vital Signs Temp 36.3 C L 10/28/21 08:31 Pulse 108 H 10/28/21 08:01 Resp 17 10/28/21 08:01 BP 137/72 10/28/21 08:01 Pulse Ox 94 10/28/21 08:31 Laboratory Results - last 24 hr 10/27/21 10/27/21 10/28/21 08:00 12:20 05:45 WBC RBC Hgb Hct MCV MCH MCHC RDW Plt Count MPV Immature Gran % Neutrophils % Lymphocytes % Monocytes % Eosinophils % Basophils % Metamyelocytes % Nucleated RBC % Absolute Neutrophils Absolute Lymphocytes Absolute Monocytes Absolute Eosinophils Absolute Basophils RBC Morphology Polychromasia Anisocytosis VBG pH VBG pCO2 VBG pO2 VBG HCO3 VBG Total CO2 VBG O2 Saturation VBG Base Excess Sodium 149 H 146 H Potassium 3.6 3.8 Chloride 113 H 110 H Carbon Dioxide 27.4 26.1 Anion Gap 8.6 9.9 BUN 84 H* 90 H* Creatinine 0.9 1.3 H Estimated GFR/1.73 m2 >= 60.00 42.22 Glucose 58 L 170 H Calcium 8.4 L 8.8 Magnesium 2.1 Total Bilirubin 0.3 Conjugated Bilirubin 0.1 AST 13 L ALT 26 Alkaline Phosphatase 128 H Ammonia C-Reactive Protein 6.89 H NT-Pro-B Natriuret Pep 1572 H Total Protein 6.5 Albumin 2.2 L 10/28/21 10/28/21 10/28/21 05:45 05:45 05:45 WBC 25.58 H* RBC 2.99 L Hgb 8.3 L Hct 29.1 L MCV 97 H MCH 27.8 MCHC 28.5 L RDW 23.9 H Plt Count 622 H MPV 9.8 Immature Gran % 0.0 Neutrophils % 94.0 Lymphocytes % 4.0 Monocytes % 1.0 Eosinophils % 0.0 Basophils % 0.0 Metamyelocytes % 1 Nucleated RBC % 0.0 Absolute Neutrophils 24.05 H Absolute Lymphocytes 1.02 L Absolute Monocytes 0.26 Absolute Eosinophils 0.00 Absolute Basophils 0.00 RBC Morphology See Below Polychromasia Present Anisocytosis 1+ VBG pH 7.25 L VBG pCO2 53 H VBG pO2 52 VBG HCO3 23 VBG Total CO2 23 L VBG O2 Saturation 84 VBG Base Excess -4 L Sodium Potassium Chloride Carbon Dioxide Anion Gap BUN Creatinine Estimated GFR/1.73 m2 Glucose Calcium Magnesium Total Bilirubin Conjugated Bilirubin AST ALT Alkaline Phosphatase Ammonia 29 C-Reactive Protein NT-Pro-B Natriuret Pep Total Protein Albumin Objective Narrative Objective Narrative: Echo; Technically limited study Borderline concentric left ventricular hypertrophy.? Estimated ejection fraction is 55 to 60%.? No wall motion abnormalities are appreciated The right ventricle was not well visualized.? The right atrium was not well visualized Left atrium appears normal in size The aortic valve is mildly sclerotic and probably trileaflet.? There is no aortic stenosis or regurgitation Thickened mitral leaflets with trace mitral regurgitation Normal tricuspid valve with trace regurgitation.? Right ventricular systolic pressure could not be estimated CT head w/o contrast: Area of abnormal hypodensity in the high right fronto parietal region most probably related to prior infarction.? No obvious acute infarct nor hemorrhage. Vascular calcification at the skull base in the carotid as well as vertebral arteries. Multi-Disciplinary Checklist Lines/Tubes CENTRAL LINE: yes, Central Line Day#: 8 Note: PICC ARTERIAL LINE: no MOFFETT: yes, Moffett Day#: 4 ENDOTRACHEAL TUBE: no ICU Maintenance GLUCOSE 140-180mg/dL: no, Reason/Intervention: NPO; D5 fluids were continued overnight though were ordered to stop after 250 cc. NUTRITION AT GOAL: no, Reason/Intervention: NPO - nauseated PRESSURE ULCER: yes, Medial Lumbar/Sacral RESTRAINTS: no ANTIBIOTICS(if yes, consider Stewardship): Yes Social Issues FAMILY UPDATED: no, Reason/Intervention: No HIPPAA on file; palliative and care management consulted PT/OT: yes GOALS/DISPOSITION/PRICING COORDINATOR: yes CODE STATUS: Full (palliative care consulted) Prophylaxis DVT PROPHYLAXIS: yes GI PROPHYLAXIS: yes, Indication: NPO
[2021-10-28] MEDS: Zinc Sulfate 220 MG TAB PO (10:41)
[2021-10-28] MEDS: DULoxetine 20 MG CAP PO (10:41)
[2021-10-28] MEDS: Protein Nutritional Supplement 16 GM 1 OUNCE PACKET PO ×3 (10:42→19:55)
[2021-10-28] MEDS: Psyllium PKT 1 EACH PO (10:42)
[2021-10-28] MEDS: Potassium Chloride 10 MEQ CAPCR 20 MEQ PO (10:43)
[2021-10-28] MEDS: Polyethylene Glycol 3350 17 GM PACKET PO ×2 (10:43→19:56)
[2021-10-28] MEDS: Insulin Aspart 300 UNITS/3 ML PEN SC ×2 (10:44→18:02)
[2021-10-28] MEDS: Docusate Sodium 100 MG CAP PO ×3 (10:45→19:56)
[2021-10-28] MEDS: Ascorbic Acid 500 MG TAB PO ×2 (10:45→19:57)
[2021-10-28] MEDS: Calcium Carbonate *TUMS* 500 MG CHEW PO (10:45)
[2021-10-28 12:00] LABS: Bilirubin Negative (Negative); Blood Trace-intact (Negative); Clarity Sl Cloudy (Clear); Glucose Negative (Negative); Ketones Negative (Negative); Leukocyte Esterase Small (Negative); Nitrite Negative (Negative); Specific Gravity 1.025 (1.005-1.025); Urobilinogen 0.2 EU/dL (Up TO 0.2)
[2021-10-28 12:07] LABS: Bacteria Moderate HPF (Negative); C & S Indicated? Yes; Casts Negative LPF (Negative); Crystals Negative HPF (Negative); Epithelial Cells Few HPF (Negative); Mucus Negative (Negative); Other Cells Few Yeast (Negative); RBC 0-2 HPF (0-2)
[2021-10-28 12:09] LABS: Lab Add On Test DONE
[2021-10-28 12:17] LABS: Creatinine,Urine 52.28 mg/dL
[2021-10-28 12:25] LABS: Creatine Kinase 36 U/L (26-192)
[2021-10-28] MEDS: Nystatin POWDER 60 GM JAR TP ×2 (14:31→20:04)
--- NOTE | 2021-10-28 14:42 | CMPROGNOTE_ITS ---
- If Service Date Differs Date of service: 10/28/21 Time of Service: 14:43 Care Management Progress Note S/O: Hetal continues to be closely monitored and treated, per MD Leslie is not progressing medically at this time. CM AA outreached to [facility] to inquire as to [facility] forms, no updated forms available per their report. Current AD provided to Dr. Muro. CM will continue to follow. A:Leslie is a 56 year old woman admitted on 10/21/21 with a LLE infection. P: Discharge not anticipated within the 48 hours; the plan remains for her to return to the [facility] unless transfer to a tertiary care center becomes necessary. Leslie will return to [facility] when medically cleared by pro vider with [facility] for wound care and wound care orders. If an extended course of IV ABX is required she will likely need to transition to SB-1 as [facility] would not be able to accommodate the administration of IV medications. Leslie will follow up with the facility provider and plan of care and transport via EMS. CM will support Leslie and assess for ongoing discharge needs.
[2021-10-28 14:54] LABS: BE (Venous) -7 mmol/L (-2-3); HCO3 (Venous) 21 mmol/L (23-28); O2 Sat (Venous) 98 %; TCO2 (Venous) 21 mmol/L (24-29); pCO2 (Venous) 54 mmHg (41-51); pO2 (Venous) 110 mmHg
--- NOTE | 2021-10-28 15:47 | NUR.NOTE ---
Attempted to do more care at this time. I was able to do oral care on the patient. But other then that, the patient was more concerned with calling her granddaughter back. Patient is very drowsy and thinks the vice president regulatory is [facility]. Patient is nodding in and out of sleep very quickly. Patient did agree to wear bipap for 30 minutes right now. RN notified. Nursing Note:
[2021-10-28 17:27] LABS: Urea Nitrogen Random Urine 418 mg/dL (See Note)
[2021-10-28] MEDS: Enoxaparin 40 MG/0.4 ML SYR SC (17:30)
[2021-10-28] MEDS: IMIPENEM/CILASTATIN 500 MG in Normal Saline 100 ML 200 MG IVPB ×2 (17:30→22:24)
[2021-10-28] MEDS: Lactated Ringers 1,000 ML 100 ML IV (17:50)
[2021-10-28] MEDS: ALBUMIN HUMAN 25 GM/100 ML BTL IV ×4 (19:55→20:53)
[2021-10-28 23:15] LABS: BE -9 mmol/L (-2-3); HCO3 19 mmol/L (22-26); pCO2 48 mmHg (35-45); pH 7.21 (7.35-7.45); pO2 90 mmHg (80-105); sO2 97 % (95-98); tCO2 19 mmol/L (23-27)
[2021-10-29] VITALS (33 sets, daily range): BP systolic 122–147; BP diastolic 53–93; PULSE 71–101; RESP 6–21; TEMP 36.1–36.7; O2SAT 84–100
[2021-10-29] MEDS: Insulin Aspart 300 UNITS/3 ML PEN SC ×4 (00:49→23:15)
[2021-10-29] MEDS: IMIPENEM/CILASTATIN 500 MG in Normal Saline 100 ML 200 MG IVPB ×4 (04:58→21:05)
[2021-10-29 06:34] LABS: Abs Immature Grans 0.41 10^3/uL (0.0-0.06); Absolute Basophil Count 0.04 10^3/uL (0.0-0.2); Basophils % 0.2; HCT 23.7 % (36.0-46.0); Immature Grans % 2.3; Lymphocytes % 4.9; MCH 27.9 pg (27.0-33.0); MCHC 28.7 % (32.0-36.0); MCV 97 fL (80-95); MPV 10.1 fL (8.0-11.0); Monocytes % 2.5; Neutrophils % 90.1; Nucleated RBC 0.2 % (0.0-0.3); Platelet Count 455 10^3/uL (130-400); RBC 2.44 10^6/uL (3.93-5.22); RDW 23.2 % (11.7-14.6); RDW-SD 79.2 fL; WBC 17.88 10^3/uL (4.4-10.8)
[2021-10-29 06:35] LABS: Absolute Lymphocyte Count 0.88 10^3/uL (1.2-3.4); Absolute Monocyte Count 0.45 10^3/uL (0.1-0.8); Absolute Neutrophil Count 16.11 10^3/uL (1.2-6.7)
[2021-10-29 06:38] LABS: HGB 6.8 g/dL (11.2-15.7)
[2021-10-29 06:41] LABS: ALT 55 U/L (14-59); AST 94 U/L (15-37); Albumin 3.5 g/dL (3.4-5.0); Alkaline Phosphatase 597 U/L (46-116); Anion Gap 13.5 mmol/L (3-11); Bilirubin, Direct 0.1 mg/dL (0.0-0.2); Bilirubin, Total 0.4 mg/dL (0.2-1.0); C-Reactive Protein 7.82 mg/dL (0.0-0.3); CO2 24.5 mmol/L (21.0-32.0); CREATININE 1.5 mg/dL (0.55-1.02); Calcium 8.9 mg/dL (8.5-10.1); Chloride 109 mmol/L (98-107); Estimated GFR 35.79 (mL/min/1.73m2); Glucose 170 mg/dL (74-106); Magnesium 2.2 mg/dL (1.8-2.4); Potassium 4.3 mmol/L (3.5-5.1); Sodium 147 mmol/L (136-145); Total Protein 6.8 g/dL (6.4-8.2)
[2021-10-29 06:45] LABS: BUN 104 mg/dL (7-18); PHOSPHORUS 8.4 mg/dL (2.6-4.7)
[2021-10-29 06:51] LABS: Anisocytosis 2+; Diff Comment RBC Morph Reviewed; Hypochromasia 1+
[2021-10-29] MEDS: Docusate Sodium 100 MG CAP PO ×2 (08:43→14:35)
[2021-10-29] MEDS: Normal Saline Flush 10 ML SYR IVP (08:43)
[2021-10-29] MEDS: Protein Nutritional Supplement 16 GM 1 OUNCE PACKET PO ×2 (08:43→14:35)
[2021-10-29] MEDS: Metoprolol CR 100 MG TABCR PO (08:45)
[2021-10-29] MEDS: Zinc Sulfate 220 MG TAB PO (08:45)
[2021-10-29] MEDS: Ascorbic Acid 500 MG TAB PO (08:45)
[2021-10-29] MEDS: Calcium Carbonate *TUMS* 500 MG CHEW PO (08:45)
[2021-10-29] MEDS: Omeprazole 20 MG CAPCR 40 MG PO (08:46)
[2021-10-29] MEDS: DULoxetine 20 MG CAP PO (08:46)
[2021-10-29] MEDS: predniSONE 20 MG TAB 40 MG PO (08:46)
[2021-10-29] MEDS: amLODIPine 10 MG TAB PO (08:46)
[2021-10-29] MEDS: Venlafaxine 75 MG CAPCR PO ×2 (08:46→14:35)
[2021-10-29] MEDS: Loratidine 10 MG TAB PO (08:46)
--- NOTE | 2021-10-29 08:46 | PDOC.CMPRO ---
- If Service Date Differs Date of service: 10/29/21 Time of Service: 08:46 Care Management Progress Note S/O: Hetal remains ICU level of care. Her Hgb dropped again this morning necessitating another unit of blood. She remains on Bipap most of the time when not receiving high flow nasal oxygen and has been maintaining saturation levels between 91-100. Leslie is oriented but very drowsy. She is on bedrest and continues to receive wound care in addition to respiratory support. No change in overall plan of care; will elti return to [facility] when medically stable and IV antibiotic course complete. A:Leslie is a 56 year old woman admitted on 10/21/21 with a LLE infection. P:The plan for Leslie remains for her to return to the [facility] unless transfer to a tertiary care center becomes necessary. When Leslie returns to [facility] she will have with ELIZABETH dressings for wound care with wound care orders. If an extended course of IV ABX is required she will likely need to transition to -1 as [facility] would not be able to accommodate the administration of IV medications. Leslie will follow up with the facility provider and plan of care and transport via EMS. CM will support Leslie and assess for ongoing discharge nee
[2021-10-29 10:07] LABS: BE -8 mmol/L (-2-3); HCO3 20 mmol/L (22-26); pCO2 49 mmHg (35-45); pH 7.22 (7.35-7.45); pO2 68 mmHg (80-105); sO2 93 % (95-98); tCO2 20 mmol/L (23-27)
[2021-10-29 10:10] LABS: FIO2 30 %; FIO2L BIPAP 18/5 L; Site Right Radial
[2021-10-29 10:11] LABS: Lactate 0.5 mmol/L (0.6-1.4)
[2021-10-29 10:15] LABS: HCT 23.7 % (36.0-46.0); HGB 7.1 g/dL (11.2-15.7)
[2021-10-29] MEDS: Nystatin POWDER 60 GM JAR TP ×2 (12:10→20:56)
[2021-10-29] MEDS: Sucralfate 1 GM TAB PO (12:48)
[2021-10-29] MEDS: Polyethylene Glycol 3350 17 GM PACKET PO (12:50)
--- NOTE | 2021-10-29 16:37 | PGE_ITS ---
Date of Service Date of service: 10/29/21 Time of Service: 16:37 Assessment and Plan Assessment and plan (1) ESBL (extended spectrum beta-lactamase) producing bacteria infection: Status: Acute Assessment and plan: Extended-spectrum beta-lactamases (ESBL) are enzymes that confer resistance to most beta-lactam antibiotics, including penicillins, cephalosporins, and the monobactam aztreonam. Reference: UpToDate August 2012 Reported ESBL results to and read back from YESIKA STAPLES RN(MS)10/25/21 at 0950 by [email or web address] Reported results to and read back from Shell Malagon RN MS 10/26/21 at 0845 by [email or web address] Organism 1 Klebsiella pneumoniae GROWTH SCANT GROWTH Organism 2 Pseudomonas aeruginosa GROWTH RARE GROWTH Organism 3 ENTEROCOCCUS FAECALIS GROWTH RARE GROWTH Kleb pneu Pseu aeru Result Result Ampicillin R Ampicillin/Sulbactam I Cefazolin R Ceftazidime R S CEFTRIAXONE R Ciprofloxacin R S Gentamicin S S Imipenem S S Levofloxacin R Tobramycin S S Trimethoprim/Sulfamethoxazole R Piperacillin/Tazobactam S S Daptomycin Vancomycin Ente faeca Result Ampicillin S Ampicillin/Sulbactam Cefazolin Ceftazidime CEFTRIAXONE Ciprofloxacin R Gentamicin Imipenem Levofloxacin Tobramycin Trimethoprim/Sulfamethoxazole Piperacillin/Tazobactam Daptomycin S Vancomycin R Gram Stain Final 10/20/21-2302 GRAM STAIN Few White Blood Cells Moderate Gram Negative Berto D#8 daptomycin D#2 IMipenem -PICS in place tuesday. Change in 7-10 days (2) Anemia: Status: Chronic Assessment and plan: Probably multifactorial in nature. Between her poor nutrition/iron deficiencies/multiple blood draws. No signs of acute GI bleeding. Patient is not currently medically stable for any type of endoscopy. I would treat her medically with twice daily PPI and Carafate. We will check her iron studies/folate/thiamine and reticulocyte count. (3) Pneumobilia: Status: Acute Assessment and plan: - Patient has never had any abdominal imaging done at our facility previously. This was an incidental finding on the CTA that was ordered. She is status post lap malena. She is on antibiotics that should cover her if she truly has cholangitis. She has not been complaining of any right upper quadrant pain/epigastric pain. She does have quite an elevated alk phos today and elevated ALT. There is also no abscess or signs of osteo under wound. I still do not think there is a clear etiology for her hypercapnia and toxic metabolic encephalopathy. (4) Toxic metabolic encephalopathy: Status: Acute (5) Polymicrobial sepsis: Status: Acute (6) Encephalopathy: Status: Acute (7) Hypernatremia: Status: Acute (8) CO2 narcosis: Status: Acute (9) Acute hypercapnic respiratory failure: Status: Acute (10) Non-healing wound of lower extremity: Status: Acute Assessment and plan: -no osteo or abscess. -cultures and abx coverage as noted above PICOs placed tuesday. change in 5-7 days -she has adequate blood flow to heal. However, steroids/n utrition/immobility/pulmonary issues/DM may hinder this. (11) Steroid-induced hyperglycemia: Status: Acute (12) MRSA nasal colonization: Status: Acute (13) Open wound of left lower leg: Status: Acute Subjective Subjective Interval history since last seen: Pt is still on Bipap and in isolation for MRSA/ESBL. She is very somnolent today. Medicine is managing her pulmonary status. PICOs wound vac was placed yesterday Today she is anemic with a hemoglobin of 6.8. It was repeated and is 7.1. I did discuss with nursing her bowel habits per for the last 48 hours. She had a brown smear of stool yesterday but otherwise no stool today. She has not had any overt GI bleeding or dark tarry stools. She has had no nausea or vomiting. She had denied any abdominal pain previously. She is on longstanding high-dose steroids and daily aspirin. Objective Last Vital Signs Temp 36.6 C 10/29/21 15:15 Pulse 87 10/29/21 15:03 Resp 21 10/29/21 15:03 BP 133/68 10/29/21 15:03 Pulse Ox 91 L 10/29/21 15:03 Laboratory Results - last 24 hr 10/28/21 10/28/21 10/28/21 05:45 14:12 23:11 WBC RBC Hgb Hct MCV MCH MCHC RDW Plt Count MPV Immature Gran % Neutrophils % Lymphocytes % Monocytes % Eosinophils % Basophils % Nucleated RBC % Absolute Neutrophils Absolute Lymphocytes Absolute Monocytes Absolute Eosinophils Absolute Basophils RBC Morphology Hypochromasia Anisocytosis ABG Sample Site Cancelled Unknown ABG pH Cancelled 7.21 L ABG pCO2 Cancelled 48 H ABG pO2 Cancelled 90 ABG HCO3 Cancelled 19 L ABG Total CO2 Cancelled 19 L ABG O2 Saturation Cancelled 97 ABG Base Excess Cancelled -9 L VBG Lactate Oxygen Liter Flow Cancelled FiO2 Cancelled Sodium Potassium Chloride Carbon Dioxide Anion Gap BUN Creatinine Estimated GFR/1.73 m2 Glucose Calcium Phosphorus Magnesium Total Bilirubin Conjugated Bilirubin AST ALT Alkaline Phosphatase C-Reactive Protein Total Protein Albumin Urine Urea Nitrogen 418 Patient ABO/Rh Antibody Screen Crossmatch 10/29/21 10/29/21 10/29/21 05:15 05:15 10:05 WBC 17.88 H RBC 2.44 L Hgb 6.8 L* Hct 23.7 L MCV 97 H MCH 27.9 MCHC 28.7 L RDW 23.2 H Plt Count 455 H MPV 10.1 Immature Gran % 2.3 Neutrophils % 90.1 Lymphocytes % 4.9 Monocytes % 2.5 Eosinophils % 0.0 Basophils % 0.2 Nucleated RBC % 0.2 Absolute Neutrophils 16.11 H Absolute Lymphocytes 0.88 L Absolute Monocytes 0.45 Absolute Eosinophils 0.00 Absolute Basophils 0.04 RBC Morphology See Below Hypochromasia 1+ Anisocytosis 2+ ABG Sample Site Right Radial ABG pH 7.22 L ABG pCO2 49 H ABG pO2 68 L ABG HCO3 20 L ABG Total CO2 20 L ABG O2 Saturation 93 L ABG Base Excess -8 L VBG Lactate Oxygen Liter Flow BIPAP 18/5 FiO2 30 Sodium 147 H Potassium 4.3 Chloride 109 H Carbon Dioxide 24.5 Anion Gap 13.5 H BUN 104 H* Creatinine 1.5 H Estimated GFR/1.73 m2 35.79 Glucose 170 H Calcium 8.9 Phosphorus 8.4 H Magnesium 2.2 Total Bilirubin 0.4 Conjugated Bilirubin 0.1 AST 94 H ALT 55 Alkaline Phosphatase 597 H C-Reactive Protein 7.82 H Total Protein 6.8 Albumin 3.5 Urine Urea Nitrogen Patient ABO/Rh Antibody Screen Crossmatch 10/29/21 10/29/21 10/29/21 10:10 12:20 Unknown WBC RBC Hgb 7.1 L Hct 23.7 L MCV MCH MCHC RDW Plt Count MPV Immature Gran % Neutrophils % Lymphocytes % Monocytes % Eosinophils % Basophils % Nucleated RBC % Absolute Neutrophils Absolute Lymphocytes Absolute Monocytes Absolute Eosinophils Absolute Basophils RBC Morphology Hypochromasia Anisocytosis ABG Sample Site ABG pH ABG pCO2 ABG pO2 ABG HCO3 ABG Total CO2 ABG O2 Saturation ABG Base Excess VBG Lactate 0.5 L Oxygen Liter Flow FiO2 Sodium Potassium Chloride Carbon Dioxide Anion Gap BUN Creatinine Estimated GFR/1.73 m2 Glucose Calcium Phosphorus Magnesium Total Bilirubin Conjugated Bilirubin AST ALT Alkaline Phosphatase C-Reactive Protein Total Protein Albumin Urine Urea Nitrogen Patient ABO/Rh A Positive Antibody Screen NEGATIVE Crossmatch See Detail
[2021-10-29] MEDS: ALPRAZolam 0.5 MG TAB (16:45)
[2021-10-29] MEDS: Furosemide 40 MG/4 ML VIAL (16:45)
[2021-10-29] MEDS: dexmedeTOMidine IN 0.9 % NACL 400 MCG/100 ML BTL 11.78 MCG IVPB (17:40)
[2021-10-29] MEDS: Furosemide 40 MG/4 ML VIAL IVP (18:27)
[2021-10-29] MEDS: Enoxaparin 40 MG/0.4 ML SYR SC (18:27)
--- NOTE | 2021-10-29 18:29 | DI.RAD_ITS ---
Exam(s) XR PORTABLE CHEST AP EXAM: XR PORTABLE CHEST AP CLINICAL HISTORY: Hypoxia, increased work of breathing.. TECHNIQUE: 2D digital imaging was performed. COMPARISON: Chest x-ray 10/26/2021 FINDINGS: Single AP portable view. Heart size unchanged. Mediastinum unchanged. Extensive bilateral infiltrates persist, without improvement. No large pleural effusions. No pneumo thorax Distal tip of PICC line is in lower SVC. IMPRESSION: No radiographic improvement in the extensive bilateral infiltrates. DATA REPOSITORY: RADIATION DOSE DELIVERED: All CT scans at this facility use at least one of these dose optimization techniques: automated exposure control; mA and/or kV adjustment per patient size (includes targeted e xams where dose is matched to clinical indication); or iterative reconstruction.
--- NOTE | 2021-10-29 18:43 | DI.VRAD_ITS ---
PROCEDURE INFORMATION: Exam: XR Chest Exam date and time: 10/29/2021 5:58 PM Age: 56 years old Clinical indication: Other: Hypoxia, increased work of breathing TECHNIQUE: Imaging protocol: Radiologic exam of the chest. Views: 1 view. COMPARISON: CR XR PORTABLE CHEST AP 10/26/2021 12:39 PM FINDINGS: Tubes, catheters and devices: Right upper extremity PICC line remains in position. Lungs: Bilateral airspace disease with lung consolidation consistent with bilateral pneumonitis or pulmonary edema/ARDS. Pleural spaces: No significant pleural effusions are evident. Heart/Mediastinum: Cardiac size appears to be upper limits of normal to mildly increased. Bones/joints: Skeletal structures are unremarkable. IMPRESSION: 1. Bilateral airspace disease consistent with pulmonary edema or a bilateral pneumonitis/ARDS. Appearance suggests mild progression since 10/26/2021. 2. Right upper extremity PICC line in position. 3. No shelia pleural effusions evident. 4. Mild cardiac enlargement. 5. mold repairer artifact overlying the right chest causing some limitations on evaluation of the right lung field. Dictated and Authenticated by: Parag Mitchell MD. Ordering:GWENDOLYN Johnson MD
--- NOTE | 2021-10-29 19:34 | W.PM.PROGNOT ---
Date of Service Date of service: 10/29/21 Time of Service: 19:34 Assessment and Plan Assessment and plan (1) Acute hypercapnic respiratory failure: Status: Acute Assessment and plan: In setting of opioid therapy, now with significant component of fluid overload, underlying untreated MADISON, multifactorial encephalopathy. Lasix 40mg IV x 2 given. Precedex drip initiated and now tolerating BiPAP. Full code. Palliative care consulted. Continue to hold all opioids and lyrica. Critical Care time 45 mins. (2) CO2 narcosis: Status: Acute Assessment and plan: As above. (3) Toxic metabolic encephalopathy: Status: Acute Assessment and plan: As above, likely multifactorial. Improving. Hold sedating medications when possible. Did give a dose of 0.5mg po xanax this afternoon. Monitor mental and respiratory status. (4) Elevated BUN: Status: Acute Assessment and plan: Could be due to steroids, upper GI bleeding (no proof), prerenal vs intrinsic renal issue. Dr Muro discussed with nephrology yesterday and gave the suggested 100g of albumin over 24 hours. Checking FEUrea. Received IVF bolus yesterday with improvement in UOP. I's > O's. Lasix 40mg IV x 2 given this afternoon. (5) Open wound of left lower leg: Status: Acute Assessment and plan: POD #9 s/p incision/debridement and removal of clots LLE infected hematoma/wound; Wound cx w/ Pseudomonas, VRE, ESBL Klebsiella. VRE is sensitive to daptomycin. Continue daptomycin, imipenem/cilastin. Check CPK given a very mild bump in Cr and elevation of BUN. No evidence of abscess CTA. Consider ID consult. WBC improving. Awaiting negative pressure dressing, per surgery. (6) Myoclonus: Status: Resolved Assessment and plan: Potential culprits: CO2 retention, meropenem, lyrica, encephalopathy. As above (7) Still's disease of adult: Assessment and plan: Per patient, prior flares of Still's disease had resulted in leucocytosis. Continue prednisone to 40 mg daily. Normally on prednisone 20 mg PO daily. (8) Steroid-induced hyperglycemia: Status: Acute Assessment and plan: Patient is NPO SS insulin; sensitive scale. Glucose increased today. Restart Lantus at 15 units BID. (9) Avascular necrosis of bone of left hip: Assessment and plan: Holding opioids. prn tylenol only. Orthopedics consulted. Is followed by ortho at [facility]. (10) [place] disease: Assessment and plan: On chronic prednisone 20 mg daily, followed by rheumatology. Currently getting 40 mg PO daily due to a flare of Still's as well as as a stress dose. (11) Hypertension: Assessment and plan: Holding antihypertensives today due to borderline BPs. (12) MADISON (obstructive sleep apnea): Assessment and plan: Has been using intermittent BiPAP and did well overnight with it. Today became more anxious / panicky and intolerant of the BiPAP. Now on precedex and doing better. Continue prn O2. Palliative care consulted. (13) Chronic anticoagulation: Status: Acute Assessment and plan: H/o DVT/PE. Was on anticoagulation at the time of LLE injury. Continue lovenox 40 mg SC daily. (14) Anemia: Status: Acute Assessment and plan: Due to acute blood loss from left leg hematoma in addition to blood draws. Hgb significantly decreased now. Received venofer earlier. Transfuse 1 unit RBCs. However, this may have to wait until her PICC is changed to a triple lumen from a single so she would not have to stop precedex while receiving the transfusion. Hospitalist will continue to follow. Subjective Subjective Patient reports: shortness of breath and afebrile; denies diarrhea, nausea or vomiting Interval history since last seen: Most of the day she was tolerating intermittent BiPAP that is being utilized to give her breaks from increased work of breathing. However, at appx 1530 she became panicky with increased WOB. O2 saturations dropped into the 70's on NC but then recovered on 6L, then 4L NC. Lungs sounded wet. However, her work of breathing increased and considered unsustainable. Lasix given; 40mg IV, then another 40mg IV after little result in 1 hour with the first dose. Xanax 0.5mg po given. She tolerated BiPAP if it was being held in place without the straps on. This, though, could not be sustained. Precedix drip initiated and she then tolerated BiPAP. Exam Narrative Exam Narrative: General: More alert Obese female who is A&Ox3. Anxious with increased WOB. HEENT: EOMI, MMM, pinpoint pupils. Sclera nonicteric. Heart: RRR, no murmur. Lungs: Diminished breath sounds with diffuse crackles. Abdomen: soft, nontender, nondistended Extremities: B feet/heels in heel protectors, LLE dressed Objective Last Vital Signs Temp 36.6 C 10/29/21 15:15 Pulse 85 10/29/21 17:10 Resp 18 10/29/21 17:10 BP 133/68 10/29/21 15:03 Pulse Ox 94 10/29/21 17:10 Laboratory Results - last 24 hr 10/28/21 10/28/21 10/29/21 14:12 23:11 05:15 WBC RBC Hgb Hct MCV MCH MCHC RDW Plt Count MPV Immature Gran % Neutrophils % Lymphocytes % Monocytes % Eosinophils % Basophils % Nucleated RBC % Absolute Neutrophils Absolute Lymphocytes Absolute Monocytes Absolute Eosinophils Absolute Basophils RBC Morphology Hypochromasia Anisocytosis ABG Sample Site Cancelled Unknown ABG pH Cancelled 7.21 L ABG pCO2 Cancelled 48 H ABG pO2 Cancelled 90 ABG HCO3 Cancelled 19 L ABG Total CO2 Cancelled 19 L ABG O2 Saturation Cancelled 97 ABG Base Excess Cancelled -9 L VBG Lactate Oxygen Liter Flow Cancelled FiO2 Cancelled Sodium 147 H Potassium 4.3 Chloride 109 H Carbon Dioxide 24.5 Anion Gap 13.5 H BUN 104 H* Creatinine 1.5 H Estimated GFR/1.73 m2 35.79 Glucose 170 H Calcium 8.9 Phosphorus 8.4 H Magnesium 2.2 Total Bilirubin 0.4 Conjugated Bilirubin 0.1 AST 94 H ALT 55 Alkaline Phosphatase 597 H C-Reactive Protein 7.82 H Total Protein 6.8 Albumin 3.5 Patient ABO/Rh Antibody Screen Crossmatch 10/29/21 10/29/21 10/29/21 05:15 10:05 10:10 WBC 17.88 H RBC 2.44 L Hgb 6.8 L* 7.1 L Hct 23.7 L 23.7 L MCV 97 H MCH 27.9 MCHC 28.7 L RDW 23.2 H Plt Count 455 H MPV 10.1 Immature Gran % 2.3 Neutrophils % 90.1 Lymphocytes % 4.9 Monocytes % 2.5 Eosinophils % 0.0 Basophils % 0.2 Nucleated RBC % 0.2 Absolute Neutrophils 16.11 H Absolute Lymphocytes 0.88 L Absolute Monocytes 0.45 Absolute Eosinophils 0.00 Absolute Basophils 0.04 RBC Morphology See Below Hypochromasia 1+ Anisocytosis 2+ ABG Sample Site Right Radial ABG pH 7.22 L ABG pCO2 49 H ABG pO2 68 L ABG HCO3 20 L ABG Total CO2 20 L ABG O2 Saturation 93 L ABG Base Excess -8 L VBG Lactate Oxygen Liter Flow BIPAP 18/5 FiO2 30 Sodium Potassium Chloride Carbon Dioxide Anion Gap BUN Creatinine Estimated GFR/1.73 m2 Glucose Calcium Phosphorus Magnesium Total Bilirubin Conjugated Bilirubin AST ALT Alkaline Phosphatase C-Reactive Protein Total Protein Albumin Patient ABO/Rh Antibody Screen Crossmatch 10/29/21 10/29/21 12:20 Unknown WBC RBC Hgb Hct MCV MCH MCHC RDW Plt Count MPV Immature Gran % Neutrophils % Lymphocytes % Monocytes % Eosinophils % Basophils % Nucleated RBC % Absolute Neutrophils Absolute Lymphocytes Absolute Monocytes Absolute Eosinophils Absolute Basophils RBC Morphology Hypochromasia Anisocytosis ABG Sample Site ABG pH ABG pCO2 ABG pO2 ABG HCO3 ABG Total CO2 ABG O2 Saturation ABG Base Excess VBG Lactate 0.5 L Oxygen Liter Flow FiO2 Sodium Potassium Chloride Carbon Dioxide Anion Gap BUN Creatinine Estimated GFR/1.73 m2 Glucose Calcium Phosphorus Magnesium Total Bilirubin Conjugated Bilirubin AST ALT Alkaline Phosphatase C-Reactive Protein Total Protein Albumin Patient ABO/Rh A Positive Antibody Screen NEGATIVE Crossmatch See Detail
[2021-10-29 20:04] LABS: BE (Venous) -10 mmol/L (-2-3); HCO3 (Venous) 18 mmol/L (23-28); O2 Sat (Venous) 91 %; TCO2 (Venous) 18 mmol/L (24-29); pCO2 (Venous) 49 mmHg (41-51); pO2 (Venous) 66 mmHg
[2021-10-29 20:06] LABS: pH (Venous) 7.18 (7.31-7.41)
[2021-10-29 20:17] LABS: Reticulocyte 5.2 % (0.5-2.4)
[2021-10-29 21:52] LABS: BE (Venous) -10 mmol/L (-2-3); HCO3 (Venous) 18 mmol/L (23-28); pCO2 (Venous) 49 mmHg (41-51); pO2 (Venous) 159 mmHg
[2021-10-29 21:55] LABS: O2 Sat (Venous) > 99 %
[2021-10-29 21:56] LABS: pH (Venous) 7.19 (7.31-7.41)
[2021-10-29 23:21] LABS: Lactate 0.5 mmol/L (0.6-1.4)
[2021-10-30] VITALS (89 sets, daily range): BP systolic 69–142; BP diastolic 32–113; PULSE 67–118; RESP 8–26; TEMP 34–38.8; O2SAT 88–100
--- NOTE | 2021-10-30 | DI.RAD_ITS ---
Exam(s) XR PORTABLE CHEST AP EXAM: XR PORTABLE CHEST AP CLINICAL HISTORY: right IJ central line placement. TECHNIQUE: 2D digital imaging was performed. COMPARISON: No exams were available for comparison FINDINGS: Single AP portable view. Distal tip of right jugular central line is in the right atrium. Heart size is upper normal. The mediastinum is not widened. There are extensive bilateral infiltrates were both lung schumacher. No obvious pleural effusions. No p neumothorax IMPRESSION: Extensive bilateral pulmonary infiltrates. Distal tip of the right jugular central line is in the right atrium. DATA REPOSITORY: RADIATION DOSE DELIVERED: All CT scans at this facility use at least one of these dose optimization techniques: automated exposure control; mA and/or kV adjustment per patient size (includes targeted e xams where dose is matched to clinical indication); or iterative reconstruction.
--- NOTE | 2021-10-30 | DI.US_ITS ---
Exam(s) US ABDOMEN LIMITED EXAM: US ABDOMEN LIMITED CLINICAL HISTORY: pneumobilia f/u. s/p lap malena.Isolation pt. TECHNIQUE: Ultrasound abdomen performed using standard protocol. COMPARISON: US US ECHOCARDIOGRAM from 10/26/2021 CR,XR XR PORTABLE CHEST AP from 10/29/2021 FINDINGS: There is no ascites evident. LIVER: Liver is hyperechoic indicating fatty parenchymal change. No discrete focal hepatic lesions. GALLBLADDER/BILIARY: Gallbladder surgically absent. The common hepatic duct isnot dilated, measuring 6mm at the level of caty hepatis. PANCREAS: There is no evidence of pancreatic mass nor dilatation of the pancreatic duct. RIGHT KIDNEY:No evidence of solid mass, calculus, nor hydronephrosis. No cortical cysts evident. IMPRESSION: 1. Gallbladder surgically absent. The biliary tree is not dilated. 2. Hepatic steatosis. No discrete focal hepatic lesions. 3. There is no ascites. DATA REPOSITORY:
[2021-10-30 00:15] LABS: Bilirubin Negative (Negative); Blood Moderate (Negative); Clarity Clear (Clear); Glucose Negative (Negative); Ketones Trace mg/dL (Negative); Leukocyte Esterase Small (Negative); Nitrite Negative (Negative); Specific Gravity >= 1.030 (1.005-1.025); Urobilinogen 0.2 EU/dL (Up TO 0.2); pH 5.5 (5-8)
[2021-10-30 00:20] LABS: Bacteria Moderate HPF (Negative); C & S Indicated? Yes; Casts 0-2 Hyaline LPF (Negative); Crystals Negative HPF (Negative); Epithelial Cells Few HPF (Negative); Mucus Negative (Negative); Other Cells Few Yeast (Negative)
[2021-10-30] MEDS: dexmedeTOMidine IN 0.9 % NACL 400 MCG/100 ML BTL 11.78 MCG IVPB ×2 (01:04→14:35)
[2021-10-30 02:08] LABS: BE (Venous) -9 mmol/L (-2-3); HCO3 (Venous) 19 mmol/L (23-28); O2 Sat (Venous) 91 %; TCO2 (Venous) 19 mmol/L (24-29); pCO2 (Venous) 48 mmHg (41-51); pO2 (Venous) 66 mmHg
[2021-10-30] MEDS: IMIPENEM/CILASTATIN 500 MG in Normal Saline 100 ML 200 MG IVPB (04:20)
[2021-10-30 06:10] LABS: Abs Immature Grans 0.27 10^3/uL (0.0-0.06); Absolute Basophil Count 0.04 10^3/uL (0.0-0.2); Absolute Lymphocyte Count 1.12 10^3/uL (1.2-3.4); Absolute Monocyte Count 0.65 10^3/uL (0.1-0.8); Basophils % 0.2; HCT 25.4 % (36.0-46.0); HGB 7.5 g/dL (11.2-15.7); Immature Grans % 1.4; Lymphocytes % 5.7; MCH 28.1 pg (27.0-33.0); MCHC 29.5 % (32.0-36.0); MCV 95 fL (80-95); MPV 9.7 fL (8.0-11.0); Monocytes % 3.3; Neutrophils % 89.4; Nucleated RBC 0.2 % (0.0-0.3); Platelet Count 451 10^3/uL (130-400); RBC 2.67 10^6/uL (3.93-5.22); RDW 23.2 % (11.7-14.6); RDW-SD 79.6 fL; WBC 19.67 10^3/uL (4.4-10.8)
[2021-10-30 06:17] LABS: Absolute Neutrophil Count 17.58 10^3/uL (1.2-6.7)
[2021-10-30 06:27] LABS: Iron 27 ug/dL (50-170); Total Iron Binding Capacity 128 ug/dL (250-450); Transferrin Sat 21 % (15-50)
[2021-10-30 06:28] LABS: ALT 28 U/L (14-59); AST 14 U/L (15-37); Alkaline Phosphatase 439 U/L (46-116); Anion Gap 13.5 mmol/L (3-11); Bilirubin, Total 0.4 mg/dL (0.2-1.0); CO2 22.5 mmol/L (21.0-32.0); CREATININE 1.7 mg/dL (0.55-1.02); Calcium 8.4 mg/dL (8.5-10.1); Chloride 107 mmol/L (98-107); Estimated GFR 30.98 (mL/min/1.73m2); Glucose 194 mg/dL (74-106); Potassium 4.2 mmol/L (3.5-5.1); Sodium 143 mmol/L (136-145); Total Protein 6.5 g/dL (6.4-8.2)
[2021-10-30 06:31] LABS: BUN 123 mg/dL (7-18)
[2021-10-30 06:54] LABS: Folate 17.5 ng/mL (8.6-20.0); Vitamin B12 300 pg/mL (193-986)
[2021-10-30 07:36] LABS: D-Dimer 3950 ng/mlFEU (<500)
[2021-10-30 07:42] LABS: Procalcitonin 0.7 ng/mL
[2021-10-30] MEDS: Normal Saline Flush 10 ML SYR IVP (08:51)
[2021-10-30] MEDS: Insulin Aspart 300 UNITS/3 ML PEN SC (08:54)
[2021-10-30] MEDS: Normal Saline 500 ML 10 ML IVPB (08:54)
[2021-10-30] MEDS: Nystatin POWDER 60 GM JAR TP ×2 (08:55→19:39)
[2021-10-30] MEDS: Loratidine 10 MG TAB PO (09:05)
[2021-10-30] MEDS: predniSONE 20 MG TAB 40 MG PO (09:05)
[2021-10-30] MEDS: Zinc Sulfate 220 MG TAB PO (09:05)
[2021-10-30] MEDS: Metoprolol CR 100 MG TABCR PO (09:05)
[2021-10-30] MEDS: DULoxetine 20 MG CAP PO (09:06)
[2021-10-30] MEDS: Venlafaxine 75 MG CAPCR PO (09:06)
[2021-10-30] MEDS: amLODIPine 10 MG TAB PO (09:06)
[2021-10-30] MEDS: Sucralfate 1 GM TAB PO (09:06)
[2021-10-30] MEDS: Docusate Sodium 100 MG CAP PO (09:06)
[2021-10-30] MEDS: Ascorbic Acid 500 MG TAB PO (09:06)
--- NOTE | 2021-10-30 09:13 | NUR.NOTE ---
Respiratory text paged per RN request to bring hiflow for this patient.Nursing Note:
--- NOTE | 2021-10-30 09:59 | PUCC_ITS ---
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 She is currently on Daptomycin and Zosyn for this (Imipenem changed recently for concern of elevated BUN. She required ICU transfer for hypercapnic respiratory failure requiring BiPAP. She has [place] and is noncompliant with her CPAP at home and she may have some degree of OHS, but I doubt this is contibuting to her acute decompensation. This is evidenced by the fact that her bicarb really has remained stable throughout her stay here (around 30), indicating some degree of chronic hypercapnea but not clear trend of progressive acute hypercapnea. There was concern for narcotic also being involved, which is certainly possible, and likely a more likely contributor, however she has not had a significant clinical response to Narcan. Additionally, clinically her encephalopathy is more consistent with a tox-metabolic encephalopathy resulting in apneic events as opposed to oversedation and hypoventilation. She has now developed a worsening KEYA and although is still urinating has been taping off and given the increasing creatinine and extremely elevated BUN, despite best efforts guided by POCUS and clinical volume exams, she should be transferred to a higher level of care for impending need of dialysis. I have called and discussed the case with [facility] as [facility] was full who medically accepted the patient, however was on red and thereforw was not accepting patients. The case was left open to recall with a change in clinical status. Recommendations Pulmonary: Apnea resulting in hypercapnic respiratory failure - continue BiPAP with back up rate - can decrease driving pressure 14/8 - I think the main issue is the encephalopathy and not necessarily a primary pulmonary issue at this point Cardiac: No acute concerns Renal: KEYA - Prior albumin trial recommended by nephrology at [facility] due to elevated [place] unsuccessful - initially she was volume overloaded, she has never appeared dry to me, more recently was likely euvolemic but with her CXR and somewhat plethoric IVC repeat Lasix trials have also been underwhelming - recommend transfer for impending dialysis needs - strict I/O's Hypernatremia - resolved I&O: Intake & Output 10/27/21 10/28/21 10/29/21 10/30/21 23:59 23:59 23:59 23:59 Intake Total 2747.5 / 2747.5 1790 / 1790 2049 / 2049 190.695 / 190.695 Output Total 1325 / 1325 825 / 825 545 / 545 560 / 560 Balance 1422.5 / 1422.5 965 / 965 1505 / 1505 -369.305 / -369.305 Weight 110.3 kg 117.8 kg 116.8 kg Daily Fluid Goal:: even GI Nutrition: Ok for intake when resting off BiPAP and on HFNC Date of Last Bowel Movement: 10/30/21 Infectious Disease: Polymibrobial leg infection - continue Zosyn and Dapto - repeat blood cultures with fevers - surgery following for leg Hematologic: Leukocytosis from sesis Neurologic: Encephalopathy - likely multi-factorial tox-metabolic - head CT non revealing - ammonia normal - recommend reducing prednisone as low as possible safely - treat pain as appropriate - treat electrolyte abnormalities - maintain adequate glucose levels Endocrine: Diabetes - treat hypoglycemia Lines: R IJ - placed today by surgery Prophylaxis: Prilosec Lovenox Code Status: Resuscitation Status Full Code Subjective Critical and life-threatening events over the past 24 hours: Leslie has had worsening renal function but does appear to be euvolemic on repeat POCUS exam today. Her labs continue to worsen and she is becoming more reliant on BiPAP. This seems to be due to weakness and is not due to over sedation or hypercapnea. Exam Narrative Exam Narrative: POCUS 10/30/21: Good views obtained. Normal appearing EF. RV normal size and function. No pericardial effusion. IVC of normal size. Collapsability <50% (on positive pressure). Gen: NAD, normal respiratory effort, centrally obese HENT: PERRL Chest: No respiratory distress, normal appearance of chest, diminished breath sounds, no crackles or wheezes, normal inspiratory effort Heart: regular rate and rhythym, no murmurs, rubs or gallops Abdomen: Non-distended, soft, non tender Extremities: No clubbing, pedal edema. Left leg wrapped and in brace. Neuro: AAOx2 , non focal Psych: cooperative, appropriate mental affect Most Recent VS/Results Last Vital Signs Temp 35.8 C L 10/30/21 07:30 Pulse 72 10/30/21 07:52 Resp 10 L 10/30/21 07:52 BP 133/75 10/30/21 06:01 Pulse Ox 99 10/30/21 07:52 Laboratory Results - last 24 hr 10/29/21 10/29/21 10/29/21 10:05 10:10 12:20 WBC RBC Hgb 7.1 L Hct 23.7 L MCV MCH MCHC RDW Plt Count MPV Reticulocyte % (Auto) Immature Gran % Neutrophils % Lymphocytes % Monocytes % Eosinophils % Basophils % Nucleated RBC % Absolute Neutrophils Absolute Lymphocytes Absolute Monocytes Absolute Eosinophils Absolute Basophils D-Dimer ABG Sample Site Right Radial ABG pH 7.22 L ABG pCO2 49 H ABG pO2 68 L ABG HCO3 20 L ABG Total CO2 20 L ABG O2 Saturation 93 L ABG Base Excess -8 L VBG pH VBG pCO2 VBG pO2 VBG HCO3 VBG Total CO2 VBG O2 Saturation VBG Base Excess VBG Lactate Oxygen Liter Flow BIPAP 18/5 FiO2 30 Sodium Potassium Chloride Carbon Dioxide Anion Gap BUN Creatinine Estimated GFR/1.73 m2 Glucose Calcium Iron TIBC Transferrin % Sat Total Bilirubin AST ALT Alkaline Phosphatase Total Protein Albumin Vitamin B12 Folate Procalcitonin Urine Color Urine Clarity Urine pH Ur Specific [place] Urine Protein Urine Ketones Urine Blood Urine Nitrite Urine Bilirubin Urine Urobilinogen Ur Leukocyte Esterase Urine RBC Urine WBC Ur Epithelial Cells Urine Crystals Urine Bacteria Urine Casts Urine Mucus Urine Other Ur Culture Indicated? Urine Glucose Patient ABO/Rh A Positive Antibody Screen NEGATIVE Crossmatch See Detail 10/29/21 10/29/21 10/29/21 19:56 19:56 21:30 WBC RBC Hgb Hct MCV MCH MCHC RDW Plt Count MPV Reticulocyte % (Auto) 5.2 H Immature Gran % Neutrophils % Lymphocytes % Monocytes % Eosinophils % Basophils % Nucleated RBC % Absolute Neutrophils Absolute Lymphocytes Absolute Monocytes Absolute Eosinophils Absolute Basophils D-Dimer ABG Sample Site ABG pH ABG pCO2 ABG pO2 ABG HCO3 ABG Total CO2 ABG O2 Saturation ABG Base Excess VBG pH 7.18 L* 7.19 L* VBG pCO2 49 49 VBG pO2 66 159 VBG HCO3 18 L 18 L VBG Total CO2 18 L VBG O2 Saturation 91 > 99 VBG Base Excess -10 L -10 L VBG Lactate Oxygen Liter Flow FiO2 Sodium Potassium Chloride Carbon Dioxide Anion Gap BUN Creatinine Estimated GFR/1.73 m2 Glucose Calcium Iron TIBC Transferrin % Sat Total Bilirubin AST ALT Alkaline Phosphatase Total Protein Albumin Vitamin B12 Folate Procalcitonin Urine Color Urine Clarity Urine pH Ur Specific [place] Urine Protein Urine Ketones Urine Blood Urine Nitrite Urine Bilirubin Urine Urobilinogen Ur Leukocyte Esterase Urine RBC Urine WBC Ur Epithelial Cells Urine Crystals Urine Bacteria Urine Casts Urine Mucus Urine Other Ur Culture Indicated? Urine Glucose Patient ABO/Rh Antibody Screen Crossmatch 10/29/21 10/29/21 10/29/21 23:15 23:15 Unknown WBC RBC Hgb Hct MCV MCH MCHC RDW Plt Count MPV Reticulocyte % (Auto) Immature Gran % Neutrophils % Lymphocytes % Monocytes % Eosinophils % Basophils % Nucleated RBC % Absolute Neutrophils Absolute Lymphocytes Absolute Monocytes Absolute Eosinophils Absolute Basophils D-Dimer ABG Sample Site ABG pH ABG pCO2 ABG pO2 ABG HCO3 ABG Total CO2 ABG O2 Saturation ABG Base Excess VBG pH VBG pCO2 VBG pO2 VBG HCO3 VBG Total CO2 VBG O2 Saturation VBG Base Excess VBG Lactate 0.5 L 0.5 L Oxygen Liter Flow FiO2 Sodium Potassium Chloride Carbon Dioxide Anion Gap BUN Creatinine Estimated GFR/1.73 m2 Glucose Calcium Iron TIBC Transferrin % Sat Total Bilirubin AST ALT Alkaline Phosphatase Total Protein Albumin Vitamin B12 Folate Procalcitonin Urine Color Yellow Urine Clarity Clear Urine pH 5.5 Ur Specific [place] >= 1.030 H Urine Protein 100 H Urine Ketones Trace H Urine Blood Moderate H Urine Nitrite Negative Urine Bilirubin Negative Urine Urobilinogen 0.2 Ur Leukocyte Esterase Small H Urine RBC 5-10 H Urine WBC 5-10 Ur Epithelial Cells Few Urine Crystals Negative Urine Bacteria Moderate Urine Casts 0-2 Hyaline Urine Mucus Negative Urine Other Few Yeast Ur Culture Indicated? Yes Urine Glucose Negative Patient ABO/Rh Antibody Screen Crossmatch 10/30/21 10/30/21 10/30/21 02:00 05:35 05:45 WBC RBC Hgb Hct MCV MCH MCHC RDW Plt Count MPV Reticulocyte % (Auto) Immature Gran % Neutrophils % Lymphocytes % Monocytes % Eosinophils % Basophils % Nucleated RBC % Absolute Neutrophils Absolute Lymphocytes Absolute Monocytes Absolute Eosinophils Absolute Basophils D-Dimer Cancelled ABG Sample Site ABG pH ABG pCO2 ABG pO2 ABG HCO3 ABG Total CO2 ABG O2 Saturation ABG Base Excess VBG pH 7.20 L VBG pCO2 48 VBG pO2 66 VBG HCO3 19 L VBG Total CO2 19 L VBG O2 Saturation 91 VBG Base Excess -9 L VBG Lactate Oxygen Liter Flow FiO2 Sodium Potassium Chloride Carbon Dioxide Anion Gap BUN Creatinine Estimated GFR/1.73 m2 Glucose Calcium Iron 27 L TIBC 128 L Transferrin % Sat 21 Total Bilirubin AST ALT Alkaline Phosphatase Total Protein Albumin Vitamin B12 Folate Procalcitonin Urine Color Urine Clarity Urine pH Ur Specific [place] Urine Protein Urine Ketones Urine Blood Urine Nitrite Urine Bilirubin Urine Urobilinogen Ur Leukocyte Esterase Urine RBC Urine WBC Ur Epithelial Cells Urine Crystals Urine Bacteria Urine Casts Urine Mucus Urine Other Ur Culture Indicated? Urine Glucose Patient ABO/Rh Antibody Screen Crossmatch 10/30/21 10/30/21 10/30/21 05:45 05:45 05:45 WBC 19.67 H RBC 2.67 L Hgb 7.5 L Hct 25.4 L MCV 95 MCH 28.1 MCHC 29.5 L RDW 23.2 H Plt Count 451 H MPV 9.7 Reticulocyte % (Auto) Immature Gran % 1.4 Neutrophils % 89.4 Lymphocytes % 5.7 Monocytes % 3.3 Eosinophils % 0.0 Basophils % 0.2 Nucleated RBC % 0.2 Absolute Neutrophils 17.58 H Absolute Lymphocytes 1.12 L Absolute Monocytes 0.65 Absolute Eosinophils 0.00 Absolute Basophils 0.04 D-Dimer ABG Sample Site ABG pH ABG pCO2 ABG pO2 ABG HCO3 ABG Total CO2 ABG O2 Saturation ABG Base Excess VBG pH VBG pCO2 VBG pO2 VBG HCO3 VBG Total CO2 VBG O2 Saturation VBG Base Excess VBG Lactate Oxygen Liter Flow FiO2 Sodium 143 Potassium 4.2 Chloride 107 Carbon Dioxide 22.5 Anion Gap 13.5 H BUN 123 H* Creatinine 1.7 H Estimated GFR/1.73 m2 30.98 Glucose 194 H Calcium 8.4 L Iron TIBC Transferrin % Sat Total Bilirubin 0.4 AST 14 L ALT 28 Alkaline Phosphatase 439 H Total Protein 6.5 Albumin 3.0 L Vitamin B12 300 Folate 17.5 Procalcitonin Urine Color Urine Clarity Urine pH Ur Specific [place] Urine Protein Urine Ketones Urine Blood Urine Nitrite Urine Bilirubin Urine Urobilinogen Ur Leukocyte Esterase Urine RBC Urine WBC Ur Epithelial Cells Urine Crystals Urine Bacteria Urine Casts Urine Mucus Urine Other Ur Culture Indicated? Urine Glucose Patient ABO/Rh Antibody Screen Crossmatch 10/30/21 10/30/21 05:45 06:20 WBC RBC Hgb Hct MCV MCH MCHC RDW Plt Count MPV Reticulocyte % (Auto) Immature Gran % Neutrophils % Lymphocytes % Monocytes % Eosinophils % Basophils % Nucleated RBC % Absolute Neutrophils Absolute Lymphocytes Absolute Monocytes Absolute Eosinophils Absolute Basophils D-Dimer 3950 H ABG Sample Site ABG pH ABG pCO2 ABG pO2 ABG HCO3 ABG Total CO2 ABG O2 Saturation ABG Base Excess VBG pH VBG pCO2 VBG pO2 VBG HCO3 VBG Total CO2 VBG O2 Saturation VBG Base Excess VBG Lactate Oxygen Liter Flow FiO2 Sodium Potassium Chloride Carbon Dioxide Anion Gap BUN Creatinine Estimated GFR/1.73 m2 Glucose Calcium Iron TIBC Transferrin % Sat Total Bilirubin AST ALT Alkaline Phosphatase Total Protein Albumin Vitamin B12 Folate Procalcitonin 0.7 Urine Color Urine Clarity Urine pH Ur Specific [place] Urine Protein Urine Ketones Urine Blood Urine Nitrite Urine Bilirubin Urine Urobilinogen Ur Leukocyte Esterase Urine RBC Urine WBC Ur Epithelial Cells Urine Crystals Urine Bacteria Urine Casts Urine Mucus Urine Other Ur Culture Indicated? Urine Glucose Patient ABO/Rh Antibody Screen Crossmatch Review of Systems All systems reviewed & are unremarkable except as noted in HPI and below Time spent with patient Time spent in Critical Care: 90 Time spent in Critical care included: Coordination of care, Chart review, Documenting critically ill care, Time at immediate bedside and Discussing critically ill care with other medical staff
--- NOTE | 2021-10-30 10:02 | CMPROGNOTE_ITS ---
- If Service Date Differs Date of service: 10/30/21 Time of Service: 10:02 Care Management Progress Note S/O: Hetal remains ICU level of care. She is not doing well and efforts are being made to transfer her to [facility] [[email or web address] They have accepted her for transfer but bed availability has not been confirmed. Today her son Tanner came to visit and he and his sister Lindsey participated in a palliative care consult. Advanced Directives on file from 2018 listed Krishan Mc, now , and Tanner as HCAs. A more recent document completed in 2021 lists Lindsey and Leslie's sister Jenny as the agents. Both documents however identify that Leslie wishes to remain a full code. A:Leslie is a 56 year old woman admitted on 10/21/21 with a LLE infection. P: Leslie will be transferred to [facility] [[email or web address]] as soon as a bed becomes available. She will transport via EMS coordinated by the nursing drawing supervisor. will continue to support Leslie and her family.
[2021-10-30] MEDS: Calcium Carbonate *TUMS* 500 MG CHEW PO (10:35)
[2021-10-30] MEDS: PIPERACILLIN/TAZO 3.375 GM in Normal Saline 50 ML IVPB ×3 (10:36→22:09)
--- NOTE | 2021-10-30 11:23 | PT.INNT ---
Date of service: 10/30/21 Time of Service: 11:24 PT Notes Visit Reasons: Left Lower Extremity Infection Patient is not appropriate for PT services at this time. Patient is supine in bed with HOB 45 degrees, is on 50% HF oxygen supplementation and is desaturating down to 84%, digits cyanotic. PT evaluation to be put on hold until further notice from hospitalist. Nurse Nancy mast. Thank you for the opportunity to participate in the care of this patient. Yadira Redmond PT, DPT, CLT [facility] [place], [place]
--- NOTE | 2021-10-30 12:25 | NUR.NOTE ---
This telegraphic typewriter mechanic called [facility] in [place], [place] to get copy of advanced directives. two Names and phone numbers given that are on Advanced Directives. Lindsey and Faby Waiting for confirmation fax RN notified of this Nursing Note:
[2021-10-30] MEDS: Protein Nutritional Supplement 16 GM 1 OUNCE PACKET PO (13:19)
[2021-10-30] MEDS: Omeprazole 20 MG CAPCR 40 MG PO (13:20)
--- NOTE | 2021-10-30 15:07 | W.PM.PROGNOT ---
Date of Service Date of service: 10/30/21 Time of Service: 15:15 Assessment and Plan Assessment and plan (1) Open wound of left lower leg: Status: Acute Assessment and plan: I do not see any signs of uncontrolled wound infection in the left lower extremity. I do not think there is anything to debride. For now, we will continue with broad-spectrum antibiotic and negative pressure wound therapy. With CTs consent, I did place a right internal jugular vein triple-lumen catheter for vascular access. I used ultrasound guidance. Subjective Subjective Interval history since last seen: She continues with increased work of breathing, with mild improvement in her blood gases as a result of noninvasive positive pressure ventilation. Unfortunately, she is required ongoing sedation with Precedex in order to tolerate the mask. Leukocytosis is worse again today, and her BUN contines to rise. She has some obvious, mild respiratory distress, but she does answer some questions appropriately. Exam Const General: in distress Resp Effort & Inspection: abnormal respiratory pattern, paradoxical thoraco-abdominal movements and tachypneic Extrem Left lower extremity: edema and lower leg (Wound looks clean. There is minimal granulation tissue. VAC was changed) Objective Last Vital Signs Temp 97.2 F L 10/30/21 13:11 Pulse 81 10/30/21 12:01 Resp 18 10/30/21 12:01 BP 133/75 10/30/21 06:01 Pulse Ox 96 10/30/21 12:01 Laboratory Results - last 24 hr 10/29/21 10/29/21 10/29/21 12:20 19:56 19:56 WBC RBC Hgb Hct MCV MCH MCHC RDW Plt Count MPV Reticulocyte % (Auto) 5.2 H Immature Gran % Neutrophils % Lymphocytes % Monocytes % Eosinophils % Basophils % Nucleated RBC % Absolute Neutrophils Absolute Lymphocytes Absolute Monocytes Absolute Eosinophils Absolute Basophils D-Dimer VBG pH 7.18 L* VBG pCO2 49 VBG pO2 66 VBG HCO3 18 L VBG Total CO2 18 L VBG O2 Saturation 91 VBG Base Excess -10 L VBG Lactate Sodium Potassium Chloride Carbon Dioxide Anion Gap BUN Creatinine Estimated GFR/1.73 m2 Glucose Calcium Iron TIBC Transferrin % Sat Total Bilirubin AST ALT Alkaline Phosphatase Total Protein Albumin Vitamin B12 Folate Procalcitonin Urine Color Urine Clarity Urine pH Ur Specific [place] Urine Protein Urine Ketones Urine Blood Urine Nitrite Urine Bilirubin Urine Urobilinogen Ur Leukocyte Esterase Urine RBC Urine WBC Ur Epithelial Cells Urine Crystals Urine Bacteria Urine Casts Urine Mucus Urine Other Ur Culture Indicated? Urine Glucose Patient ABO/Rh A Positive Antibody Screen NEGATIVE Crossmatch See Detail 10/29/21 10/29/21 10/29/21 21:30 23:15 23:15 WBC RBC Hgb Hct MCV MCH MCHC RDW Plt Count MPV Reticulocyte % (Auto) Immature Gran % Neutrophils % Lymphocytes % Monocytes % Eosinophils % Basophils % Nucleated RBC % Absolute Neutrophils Absolute Lymphocytes Absolute Monocytes Absolute Eosinophils Absolute Basophils D-Dimer VBG pH 7.19 L* VBG pCO2 49 VBG pO2 159 VBG HCO3 18 L VBG Total CO2 VBG O2 Saturation > 99 VBG Base Excess -10 L VBG Lactate 0.5 L Sodium Potassium Chloride Carbon Dioxide Anion Gap BUN Creatinine Estimated GFR/1.73 m2 Glucose Calcium Iron TIBC Transferrin % Sat Total Bilirubin AST ALT Alkaline Phosphatase Total Protein Albumin Vitamin B12 Folate Procalcitonin Urine Color Yellow Urine Clarity Clear Urine pH 5.5 Ur Specific [place] >= 1.030 H Urine Protein 100 H Urine Ketones Trace H Urine Blood Moderate H Urine Nitrite Negative Urine Bilirubin Negative Urine Urobilinogen 0.2 Ur Leukocyte Esterase Small H Urine RBC 5-10 H Urine WBC 5-10 Ur Epithelial Cells Few Urine Crystals Negative Urine Bacteria Moderate Urine Casts 0-2 Hyaline Urine Mucus Negative Urine Other Few Yeast Ur Culture Indicated? Yes Urine Glucose Negative Patient ABO/Rh Antibody Screen Crossmatch 10/30/21 10/30/21 10/30/21 02:00 05:35 05:45 WBC RBC Hgb Hct MCV MCH MCHC RDW Plt Count MPV Reticulocyte % (Auto) Immature Gran % Neutrophils % Lymphocytes % Monocytes % Eosinophils % Basophils % Nucleated RBC % Absolute Neutrophils Absolute Lymphocytes Absolute Monocytes Absolute Eosinophils Absolute Basophils D-Dimer Cancelled VBG pH 7.20 L VBG pCO2 48 VBG pO2 66 VBG HCO3 19 L VBG Total CO2 19 L VBG O2 Saturation 91 VBG Base Excess -9 L VBG Lactate Sodium Potassium Chloride Carbon Dioxide Anion Gap BUN Creatinine Estimated GFR/1.73 m2 Glucose Calcium Iron 27 L TIBC 128 L Transferrin % Sat 21 Total Bilirubin AST ALT Alkaline Phosphatase Total Protein Albumin Vitamin B12 Folate Procalcitonin Urine Color Urine Clarity Urine pH Ur Specific [place] Urine Protein Urine Ketones Urine Blood Urine Nitrite Urine Bilirubin Urine Urobilinogen Ur Leukocyte Esterase Urine RBC Urine WBC Ur Epithelial Cells Urine Crystals Urine Bacteria Urine Casts Urine Mucus Urine Other Ur Culture Indicated? Urine Glucose Patient ABO/Rh Antibody Screen Crossmatch 10/30/21 10/30/21 10/30/21 05:45 05:45 05:45 WBC 19.67 H RBC 2.67 L Hgb 7.5 L Hct 25.4 L MCV 95 MCH 28.1 MCHC 29.5 L RDW 23.2 H Plt Count 451 H MPV 9.7 Reticulocyte % (Auto) Immature Gran % 1.4 Neutrophils % 89.4 Lymphocytes % 5.7 Monocytes % 3.3 Eosinophils % 0.0 Basophils % 0.2 Nucleated RBC % 0.2 Absolute Neutrophils 17.58 H Absolute Lymphocytes 1.12 L Absolute Monocytes 0.65 Absolute Eosinophils 0.00 Absolute Basophils 0.04 D-Dimer VBG pH VBG pCO2 VBG pO2 VBG HCO3 VBG Total CO2 VBG O2 Saturation VBG Base Excess VBG Lactate Sodium 143 Potassium 4.2 Chloride 107 Carbon Dioxide 22.5 Anion Gap 13.5 H BUN 123 H* Creatinine 1.7 H Estimated GFR/1.73 m2 30.98 Glucose 194 H Calcium 8.4 L Iron TIBC Transferrin % Sat Total Bilirubin 0.4 AST 14 L ALT 28 Alkaline Phosphatase 439 H Total Protein 6.5 Albumin 3.0 L Vitamin B12 300 Folate 17.5 Procalcitonin Urine Color Urine Clarity Urine pH Ur Specific [place] Urine Protein Urine Ketones Urine Blood Urine Nitrite Urine Bilirubin Urine Urobilinogen Ur Leukocyte Esterase Urine RBC Urine WBC Ur Epithelial Cells Urine Crystals Urine Bacteria Urine Casts Urine Mucus Urine Other Ur Culture Indicated? Urine Glucose Patient ABO/Rh Antibody Screen Crossmatch 10/30/21 10/30/21 05:45 06:20 WBC RBC Hgb Hct MCV MCH MCHC RDW Plt Count MPV Reticulocyte % (Auto) Immature Gran % Neutrophils % Lymphocytes % Monocytes % Eosinophils % Basophils % Nucleated RBC % Absolute Neutrophils Absolute Lymphocytes Absolute Monocytes Absolute Eosinophils Absolute Basophils D-Dimer 3950 H VBG pH VBG pCO2 VBG pO2 VBG HCO3 VBG Total CO2 VBG O2 Saturation VBG Base Excess VBG Lactate Sodium Potassium Chloride Carbon Dioxide Anion Gap BUN Creatinine Estimated GFR/1.73 m2 Glucose Calcium Iron TIBC Transferrin % Sat Total Bilirubin AST ALT Alkaline Phosphatase Total Protein Albumin Vitamin B12 Folate Procalcitonin 0.7 Urine Color Urine Clarity Urine pH Ur Specific [place] Urine Protein Urine Ketones Urine Blood Urine Nitrite Urine Bilirubin Urine Urobilinogen Ur Leukocyte Esterase Urine RBC Urine WBC Ur Epithelial Cells Urine Crystals Urine Bacteria Urine Casts Urine Mucus Urine Other Ur Culture Indicated? Urine Glucose Patient ABO/Rh Antibody Screen Crossmatch Procedures Central Line Placement Right IJ: Time out performed: Yes Patient placed on monitor/pulse ox: Yes MD prep: mask, gown and gloves Central line prep: Chlorhexidine scrub Local anesthesia used: lidocaine 1% Amount of anesthesia used (ml): 5 Ultrasound used for placement: Yes Central line lumen inserted: triple Post procedure: sutured in place, good blood return, all ports aspirated, flushed, capped and sterile dressing applied Patient tolerated procedure: well Complications: none
[2021-10-30] MEDS: Normal Saline-STERILE FIELD 0.9% 10 ML SYR (15:32)
--- NOTE | 2021-10-30 16:28 | NUR.NOTE ---
Nursing Note: [id number] Patient's son Tanner arrived to the ICU to see patient but patient is receiving interventions at this time. Son was invited to wait in Day Room outside ICU. Pt was informed of a pending Palliative Care Consult. Palliative Care was explained and he was encouraged to participate. Agricultural Engineering Technicianfelicia Borges was requested to stop in and see him. [phone] This nurse checked in with Tanner in the Day Room to provide support and an update on his mother's status. Tanner clarified that although he is listed as an agent on his mother's 2018 Advance Directive that is on file with the [place] Registry, a copy of which is in her current chart, his mother has since updated her Advance Directive to name his sister Lindsey and her sister Jenny as DPOA's. He stated that in any case he would not make decisions on behalf of his mother without consulting them.
[2021-10-30] MEDS: Normal Saline 50 ML 100 ML IVPB (16:36)
[2021-10-30] MEDS: Furosemide 100 MG/10 ML VIAL 80 MG IVP (16:36)
[2021-10-30] MEDS: ACETAMINOPHEN 1,000 MG/100 ML BTL 400 MG IVPB ×2 (16:36→22:09)
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
--- NOTE | 2021-10-30 17:49 | W.PM.PROGNOT ---
Date of Service Date of service: 10/30/21 Time of Service: 17:50 Assessment and Plan Assessment and plan (1) Acute hypercapnic respiratory failure: Status: Acute Assessment and plan: Now fatiguing and requiring more frequent and longer time on BiPAP. + apnea/MADISON, OHS and concerns for volume overload. Lasix 80mg IV given. Cont on precedex so she tolerates BiPAP (becomes ancious and panics). Breaks on hi-flow NC to eat/drink. Likely will start enteral feeds tomorrow via OG tube. Full code. Palliative care consulted and discussed her condition with son. Continue to hold all opioids and lyrica. [facility] has tentively accepted her for transfer if a bed becomes available. [facility] has no bed availability. (2) CO2 narcosis: Status: Acute Assessment and plan: As above. (3) Toxic metabolic encephalopathy: Status: Acute Assessment and plan: Was resolving, but now with fever there is a sense of some recurrent confusion. Difficult to determine, however, given she is on precedex now. (4) Elevated BUN: Status: Acute Assessment and plan: Could be due to steroids, upper GI bleeding (no proof), prerenal vs intrinsic renal issue. Dr Muro discussed with nephrology and gave the suggested 100g of albumin over 24 hours. Some improved diureses that day but BUN continued to increase. FEUrea increased. (5) Open wound of left lower leg: Status: Acute Assessment and plan: POD #10 s/p incision/debridement and removal of clots LLE infected hematoma/wound; Wound cx w/ Pseudomonas, VRE, ESBL Klebsiella. VRE is sensitive to daptomycin. Continue daptomycin, imipenem/cilastin. Surgery re-evaluated wound today. Developed fever; blood cultures obtained. (6) Myoclonus: Status: Acute Assessment and plan: Potential culprits: CO2 retention, meropenem, lyrica, encephalopathy. As above (7) Still's disease of adult: Assessment and plan: Per patient, prior flares of Still's disease had resulted in leucocytosis. Begin to decrease prednisone from 40 mg daily to 30mg daily. Normally on prednisone 20 mg PO daily. (8) Steroid-induced hyperglycemia: Status: Acute Assessment and plan: Patient is NPO SS insulin; sensitive scale. Glucose increased today. Restart Lantus at 15 units BID. (9) Avascular necrosis of bone of left hip: Assessment and plan: Holding opioids. prn tylenol only. Orthopedics consulted. Is followed by ortho at [facility]. (10) [place] disease: Assessment and plan: On chronic prednisone 20 mg daily, followed by rheumatology. Currently getting 40 mg PO daily due to a flare of Still's as well as as a stress dose. Decrease to 30mg daily. (11) Hypertension: Assessment and plan: Holding antihypertensives today due to borderline BPs. (12) MADISON (obstructive sleep apnea): Assessment and plan: Has been using intermittent BiPAP and did well overnight with it. Today became more anxious / panicky and intolerant of the BiPAP. Now on precedex and doing better. Continue prn O2. Palliative care consulted. (13) Chronic anticoagulation: Status: Acute Assessment and plan: H/o DVT/PE. Was on anticoagulation at the time of LLE injury. Continue lovenox 40 mg SC daily. (14) Anemia: Status: Acute Assessment and plan: Due to acute blood loss from left leg hematoma in addition to blood draws. Hgb significantly decreased now. Received venofer earlier. Transfuse 1 unit RBCs; delayed until today until she had a central line place (already had a PICC but is single lumen and is being used for Precedex). Hospitalist take over as primary with surgery consulting. Subjective Subjective Patient reports: shortness of breath and fever; denies diarrhea, nausea or vomiting Exam Narrative Exam Narrative: General: Obese female on CPAP. Sedated with Precedex but dose wake to verbal stimuli. HEENT: EOMI, MMM, pinpoint pupils. Sclera nonicteric. Heart: RRR, no murmur. Lungs: Diminished breath sounds with diffuse crackles. Abdomen: soft, nontender, nondistended Extremities: B feet/heels in heel protectors, LLE dressed Objective Last Vital Signs Temp 38.6 C H 10/30/21 17:16 Pulse 104 H 10/30/21 16:30 Resp 21 10/30/21 16:30 BP 86/50 L 10/30/21 16:30 Pulse Ox 95 10/30/21 16:30 Laboratory Results - last 24 hr 10/29/21 10/29/21 10/29/21 12:20 19:56 19:56 WBC RBC Hgb Hct MCV MCH MCHC RDW Plt Count MPV Reticulocyte % (Auto) 5.2 H Immature Gran % Neutrophils % Lymphocytes % Monocytes % Eosinophils % Basophils % Nucleated RBC % Absolute Neutrophils Absolute Lymphocytes Absolute Monocytes Absolute Eosinophils Absolute Basophils D-Dimer VBG pH 7.18 L* VBG pCO2 49 VBG pO2 66 VBG HCO3 18 L VBG Total CO2 18 L VBG O2 Saturation 91 VBG Base Excess -10 L VBG Lactate Sodium Potassium Chloride Carbon Dioxide Anion Gap BUN Creatinine Estimated GFR/1.73 m2 Glucose Calcium Iron TIBC Transferrin % Sat Total Bilirubin AST ALT Alkaline Phosphatase Total Protein Albumin Vitamin B12 Folate Procalcitonin Urine Color Urine Clarity Urine pH Ur Specific [place] Urine Protein Urine Ketones Urine Blood Urine Nitrite Urine Bilirubin Urine Urobilinogen Ur Leukocyte Esterase Urine RBC Urine WBC Ur Epithelial Cells Urine Crystals Urine Bacteria Urine Casts Urine Mucus Urine Other Ur Culture Indicated? Urine Glucose Patient ABO/Rh A Positive Antibody Screen NEGATIVE Crossmatch See Detail 10/29/21 10/29/21 10/29/21 21:30 23:15 23:15 WBC RBC Hgb Hct MCV MCH MCHC RDW Plt Count MPV Reticulocyte % (Auto) Immature Gran % Neutrophils % Lymphocytes % Monocytes % Eosinophils % Basophils % Nucleated RBC % Absolute Neutrophils Absolute Lymphocytes Absolute Monocytes Absolute Eosinophils Absolute Basophils D-Dimer VBG pH 7.19 L* VBG pCO2 49 VBG pO2 159 VBG HCO3 18 L VBG Total CO2 VBG O2 Saturation > 99 VBG Base Excess -10 L VBG Lactate 0.5 L Sodium Potassium Chloride Carbon Dioxide Anion Gap BUN Creatinine Estimated GFR/1.73 m2 Glucose Calcium Iron TIBC Transferrin % Sat Total Bilirubin AST ALT Alkaline Phosphatase Total Protein Albumin Vitamin B12 Folate Procalcitonin Urine Color Yellow Urine Clarity Clear Urine pH 5.5 Ur Specific [place] >= 1.030 H Urine Protein 100 H Urine Ketones Trace H Urine Blood Moderate H Urine Nitrite Negative Urine Bilirubin Negative Urine Urobilinogen 0.2 Ur Leukocyte Esterase Small H Urine RBC 5-10 H Urine WBC 5-10 Ur Epithelial Cells Few Urine Crystals Negative Urine Bacteria Moderate Urine Casts 0-2 Hyaline Urine Mucus Negative Urine Other Few Yeast Ur Culture Indicated? Yes Urine Glucose Negative Patient ABO/Rh Antibody Screen Crossmatch 10/30/21 10/30/21 10/30/21 02:00 05:35 05:45 WBC RBC Hgb Hct MCV MCH MCHC RDW Plt Count MPV Reticulocyte % (Auto) Immature Gran % Neutrophils % Lymphocytes % Monocytes % Eosinophils % Basophils % Nucleated RBC % Absolute Neutrophils Absolute Lymphocytes Absolute Monocytes Absolute Eosinophils Absolute Basophils D-Dimer Cancelled VBG pH 7.20 L VBG pCO2 48 VBG pO2 66 VBG HCO3 19 L VBG Total CO2 19 L VBG O2 Saturation 91 VBG Base Excess -9 L VBG Lactate Sodium Potassium Chloride Carbon Dioxide Anion Gap BUN Creatinine Estimated GFR/1.73 m2 Glucose Calcium Iron 27 L TIBC 128 L Transferrin % Sat 21 Total Bilirubin AST ALT Alkaline Phosphatase Total Protein Albumin Vitamin B12 Folate Procalcitonin Urine Color Urine Clarity Urine pH Ur Specific [place] Urine Protein Urine Ketones Urine Blood Urine Nitrite Urine Bilirubin Urine Urobilinogen Ur Leukocyte Esterase Urine RBC Urine WBC Ur Epithelial Cells Urine Crystals Urine Bacteria Urine Casts Urine Mucus Urine Other Ur Culture Indicated? Urine Glucose Patient ABO/Rh Antibody Screen Crossmatch 10/30/21 10/30/21 10/30/21 05:45 05:45 05:45 WBC 19.67 H RBC 2.67 L Hgb 7.5 L Hct 25.4 L MCV 95 MCH 28.1 MCHC 29.5 L RDW 23.2 H Plt Count 451 H MPV 9.7 Reticulocyte % (Auto) Immature Gran % 1.4 Neutrophils % 89.4 Lymphocytes % 5.7 Monocytes % 3.3 Eosinophils % 0.0 Basophils % 0.2 Nucleated RBC % 0.2 Absolute Neutrophils 17.58 H Absolute Lymphocytes 1.12 L Absolute Monocytes 0.65 Absolute Eosinophils 0.00 Absolute Basophils 0.04 D-Dimer VBG pH VBG pCO2 VBG pO2 VBG HCO3 VBG Total CO2 VBG O2 Saturation VBG Base Excess VBG Lactate Sodium 143 Potassium 4.2 Chloride 107 Carbon Dioxide 22.5 Anion Gap 13.5 H BUN 123 H* Creatinine 1.7 H Estimated GFR/1.73 m2 30.98 Glucose 194 H Calcium 8.4 L Iron TIBC Transferrin % Sat Total Bilirubin 0.4 AST 14 L ALT 28 Alkaline Phosphatase 439 H Total Protein 6.5 Albumin 3.0 L Vitamin B12 300 Folate 17.5 Procalcitonin Urine Color Urine Clarity Urine pH Ur Specific [place] Urine Protein Urine Ketones Urine Blood Urine Nitrite Urine Bilirubin Urine Urobilinogen Ur Leukocyte Esterase Urine RBC Urine WBC Ur Epithelial Cells Urine Crystals Urine Bacteria Urine Casts Urine Mucus Urine Other Ur Culture Indicated? Urine Glucose Patient ABO/Rh Antibody Screen Crossmatch 10/30/21 10/30/21 05:45 06:20 WBC RBC Hgb Hct MCV MCH MCHC RDW Plt Count MPV Reticulocyte % (Auto) Immature Gran % Neutrophils % Lymphocytes % Monocytes % Eosinophils % Basophils % Nucleated RBC % Absolute Neutrophils Absolute Lymphocytes Absolute Monocytes Absolute Eosinophils Absolute Basophils D-Dimer 3950 H VBG pH VBG pCO2 VBG pO2 VBG HCO3 VBG Total CO2 VBG O2 Saturation VBG Base Excess VBG Lactate Sodium Potassium Chloride Carbon Dioxide Anion Gap BUN Creatinine Estimated GFR/1.73 m2 Glucose Calcium Iron TIBC Transferrin % Sat Total Bilirubin AST ALT Alkaline Phosphatase Total Protein Albumin Vitamin B12 Folate Procalcitonin 0.7 Urine Color Urine Clarity Urine pH Ur Specific [place] Urine Protein Urine Ketones Urine Blood Urine Nitrite Urine Bilirubin Urine Urobilinogen Ur Leukocyte Esterase Urine RBC Urine WBC Ur Epithelial Cells Urine Crystals Urine Bacteria Urine Casts Urine Mucus Urine Other Ur Culture Indicated? Urine Glucose Patient ABO/Rh Antibody Screen Crossmatch
--- NOTE | 2021-10-30 18:49 | NUR.NOTE ---
RN calls Nurse Comber Fixer and advices her of current BP of 71/45. Comber Fixer advices RN to call Dr. León about the situation. This nurse who is the merchandising team lead instructs RN who is assigned patient to call Dr. León to advise him of situation and get appropriate orders.Nursing Note:
[2021-10-30] MEDS: Normal Saline 500 ML IV (19:15)
[2021-10-30] MEDS: Enoxaparin 40 MG/0.4 ML SYR SC (19:25)
[2021-10-30] MEDS: Hydrocortisone SOD SUC. 100 MG VIAL IVP (19:25)
[2021-10-31] VITALS (64 sets, daily range): BP systolic 73–132; BP diastolic 28–69; PULSE 85–108; RESP 11–33; TEMP 34–37.2; O2SAT 88–100
[2021-10-31] MEDS: Normal Saline Flush 10 ML SYR IVP ×5 (00:40→22:54)
[2021-10-31] MEDS: Hydrocortisone SOD SUC. 100 MG VIAL IVP (05:11)
[2021-10-31] MEDS: PIPERACILLIN/TAZO 3.375 GM in Normal Saline 50 ML IVPB (05:11)
[2021-10-31] MEDS: ACETAMINOPHEN 1,000 MG/100 ML BTL 400 MG IVPB ×4 (05:11→21:57)
[2021-10-31 06:02] LABS: HCT 29.4 % (36.0-46.0); HGB 9.2 g/dL (11.2-15.7); MCH 29.1 pg (27.0-33.0); MCHC 31.3 % (32.0-36.0); MCV 93 fL (80-95); MPV 9.9 fL (8.0-11.0); Platelet Count 355 10^3/uL (130-400); RBC 3.16 10^6/uL (3.93-5.22); RDW 21.8 % (11.7-14.6); RDW-SD 74.3 fL
[2021-10-31 06:03] LABS: BE (Venous) -15 mmol/L (-2-3); HCO3 (Venous) 14 mmol/L (23-28); O2 Sat (Venous) 91 %; TCO2 (Venous) 14 mmol/L (24-29); pCO2 (Venous) 40 mmHg (41-51); pO2 (Venous) 71 mmHg
[2021-10-31 06:08] LABS: pH (Venous) 7.15 (7.31-7.41)
[2021-10-31 06:18] LABS: Magnesium 1.9 mg/dL (1.8-2.4)
[2021-10-31 06:21] LABS: ALT 16 U/L (14-59); AST 27 U/L (15-37); Albumin 2.4 g/dL (3.4-5.0); Alkaline Phosphatase 291 U/L (46-116); Anion Gap 18.9 mmol/L (3-11); Bilirubin, Total 0.7 mg/dL (0.2-1.0); CO2 17.1 mmol/L (21.0-32.0); CREATININE 2.2 mg/dL (0.55-1.02); Calcium 7.7 mg/dL (8.5-10.1); Chloride 109 mmol/L (98-107); Estimated GFR 23.01 (mL/min/1.73m2); Glucose 131 mg/dL (74-106); Potassium 3.8 mmol/L (3.5-5.1); Sodium 145 mmol/L (136-145); Total Protein 6.2 g/dL (6.4-8.2)
[2021-10-31 06:22] LABS: Absolute Lymphocyte Count 0.88 10^3/uL (1.2-3.4); Absolute Neutrophil Count 27.54 10^3/uL (1.2-6.7); Bands % 24
[2021-10-31 06:23] LABS: Anisocytosis 2+; Diff Comment Manual Differential; Metamyelocytes % 3
[2021-10-31 06:23] LABS: BUN 130 mg/dL (7-18)
[2021-10-31] MEDS: LORazepam 20 MG/10 ML VIAL IVP ×2 (07:31→09:56)
[2021-10-31] MEDS: Nystatin POWDER 60 GM JAR TP ×2 (07:41→21:57)
--- NOTE | 2021-10-31 07:45 | NUR.NOTE ---
This movie writer in to assess patient. Patient inconsolable, adamant on seeking palliative care. Patient states that she is done and wants this over. made aware.
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
[2021-10-31] MEDS: PIPERACILLIN/TAZO 2.25 GM in Normal Saline 50 ML IVPB (09:56)
[2021-10-31] MEDS: MORPHine 2 MG/ML SYR IVP (11:53)
--- NOTE | 2021-10-31 12:08 | NUR.NOTE ---
Nursing Note:This RN places patient back on BIPAP at 10/5 at FI02 of 45% and gives patient 2mg of Morphine. Sat now is 97% and patient is comfortable. Vital signs are stable.
[2021-10-31] MEDS: Scopolamine 1 MG/3 DAYS PATCH TD (14:35)
[2021-10-31] MEDS: MORPHine 250 MG in Normal Saline 245 ML IV (14:42)
[2021-10-31] MEDS: LORazepam 20 MG/10 ML VIAL IV/SC ×4 (15:00→23:23)
--- NOTE | 2021-10-31 16:34 | NUR.NOTE ---
Nursing Note:patient transferred from ICU to Med/Surg at 1550 for Comfort Care.
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
[2021-11-01] MEDS: LORazepam 20 MG/10 ML VIAL IV/SC ×3 (01:29→22:58)
[2021-11-01] MEDS: ACETAMINOPHEN 1,000 MG/100 ML BTL 400 MG IVPB (04:29)
[2021-11-01] MEDS: Nystatin POWDER 60 GM JAR TP ×2 (08:20→21:10)
[2021-11-01] MEDS: Normal Saline Flush 10 ML SYR IVP ×2 (08:20→21:10)
--- NOTE | 2021-11-01 18:04 | W.PM.PROGNOT ---
Date of Service Date of service: 11/01/21 Time of Service: 18:04 Assessment and Plan Assessment and plan (1) Comfort measures only status: Status: Acute Assessment and plan: Decision made to maintain her central line. Morphine drip initiated to help with dyspnea/air hunger and pain. Prn IV ativan. Scopolamine patch applied. Comfort measures / end-of-life care. Family at bedside. Subjective Subjective Interval history since last seen: Pt unarousable on morphine drip. Comfort measures Exam Narrative Exam Narrative: Lying supine. RR 12. Does not appear to be in distress or uncomfortable. Objective Last Vital Signs Temp 36.6 C 10/31/21 12:00 Pulse 100 H 10/31/21 14:17 Resp 14 10/31/21 14:17 BP 76/38 L 10/31/21 14:17 Pulse Ox 92 10/31/21 14:17
[2021-11-02] MEDS: Normal Saline Flush 10 ML SYR IVP ×2 (05:42→09:00)
[2021-11-02] MEDS: LORazepam 20 MG/10 ML VIAL IV/SC (05:42)
[2021-11-02] MEDS: Nystatin POWDER 60 GM JAR TP (09:01)
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
== END 2021-11-02 10:35 | disposition expired | DRG 189 ==
LOC: ER 15:54 → SUR 15:56 → MS 17:26 → ICU 10-26 12:36 → MS 11-02 13:57
PROVIDERS: Family Medicine; General Practice; Internal Medicine; Student in an Organized Health Care Education/Training Program; Surgery; Admitting Provider Surgery; Emergency Provider Physician Assistant; Visit Provider Family Medicine
PROC: 0HBLXZZ Excision of Left Lower Leg Skin, External Approach (ICD-10-PCS; CPT 97597; principal; 2021-10-20 17:15)
DX: G92.8 Other toxic encephalopathy (principal); J96.02 Acute respiratory failure with hypercapnia; A41.9 Sepsis, unspecified organism; T81.49XA Infection following a procedure, other surgical site, initial encounter; Z68.43 Body mass index [BMI] 50.0-59.9, adult; E87.0 Hyperosmolality and hypernatremia; D62 Acute posthemorrhagic anemia; Z16.12 Extended spectrum beta lactamase (ESBL) resistance; Z16.21 Resistance to vancomycin; N17.9 Acute kidney failure, unspecified; E27.1 Primary adrenocortical insufficiency; M87.251 Osteonecrosis due to previous trauma, right femur; L08.89 Other specified local infections of the skin and subcutaneous tissue; I50.9 Heart failure, unspecified; Z51.5 Encounter for palliative care; E66.01 Morbid (severe) obesity due to excess calories; I11.0 Hypertensive heart disease with heart failure; F32.A Depression, unspecified; F41.9 Anxiety disorder, unspecified; K21.9 Gastro-esophageal reflux disease without esophagitis; E78.5 Hyperlipidemia, unspecified; B96.1 Klebsiella pneumoniae [K. pneumoniae] as the cause of diseases classified elsewhere; M06.1 Adult-onset Still's disease; G47.33 Obstructive sleep apnea (adult) (pediatric); E87.6 Hypokalemia; E11.649 Type 2 diabetes mellitus with hypoglycemia without coma; B95.2 Enterococcus as the cause of diseases classified elsewhere; B96.5 Pseudomonas (aeruginosa) (mallei) (pseudomallei) as the cause of diseases classified elsewhere; B96.89 Other specified bacterial agents as the cause of diseases classified elsewhere; E11.65 Type 2 diabetes mellitus with hyperglycemia; T38.0X5A Adverse effect of glucocorticoids and synthetic analogues, initial encounter; G25.3 Myoclonus; Z79.52 Long term (current) use of systemic steroids; Z22.322 Carrier or suspected carrier of Methicillin resistant Staphylococcus aureus; Z79.4 Long term (current) use of insulin; Z86.711 Personal history of pulmonary embolism; Z86.718 Personal history of other venous thrombosis and embolism; Z86.16 Personal history of COVID-19
CPT/HCPCS: 97597; 97598 ×5; 36410; 36415; 36416; 36569; 36592; 75635; 76942; 77001; 80048; 80053; 80076; 82550; 82805; 84145; 86850; 86900; 86901; 86920; 87040; 87077; 87081; 87635; 99220; 99231; 99232; 99284; 99285; J1650; 36600; 70450; 71045; 73502; 76705; 80202; 81003; 81015; 82140; 82272; 82565; 82607; 82728; 82746; 83036; 83540; 83550; 83605; 83735; 83880; 84100; 84443; 84540; 85014; 85018; 85025; 85045; 85049; 85379; 85610; 85730; 86140; 87070; 87075; 87086; 87186; 87205; 93306; 94660; 99233; 99239; 99291; G0378; J0131; J0743; J1170; J1720; J1756; J1940; J2270; J2310; J2405; J2543; J3490; J7060; J7512; P9016